=== PATIENT | female | born 1955 ===

== ENCOUNTER 2024-11-23 13:45 | Outpatient (AMB) | payer MEDICARE, MEDICAID, SELFPAY ==
[2024-11-23 13:51] VITALS: BP 130/74; PULSE 99; O2SAT 99; BMI 28.8
--- NOTE | 2024-11-23 13:51 | MHC.OFFVIS ---
Vital Signs 11/23/24 13:51 Height 4 ft 11.5 in Weight 145 lb BMI 28.8 BP 130/74 Blood Pressure Location Lt brachial Position Sitting Pulse 99 Pulse Source Pulse Oximeter Pulse Oximetry (%) 99 Oxygen Delivery Method Room Air Intake Visit Reasons: Osteoporosis, Arthritis Intake Note: Patient presents for follow up on osteoporosis and arthritis. She was last seen in the office 01/26/2024. She did not take her Eliquis or Flecaindide today. Allergies NSAIDS (Non-Steroidal Anti-Inflamma Allergy (Mild, Verified 11/23/24 13:57) Due to flecinde, and Eliquis HPI HPI Osteoporosis, Arthritis: Details: She will be seeing ortho for bilateral knee replacements. Sees [facility]. Uses cane. Sees [facility] for back pain. Uses tylenol arthritis and biofreeze with benefit. Intermittent right CMC pain. She is experiencing chronic neck pain radiating to her shoulders. Worse when driving. She applies heat as needed with benefit. Physical Exam Vital Signs: Last Vital Signs Pulse 99 11/23/24 13:51 BP 130/74 11/23/24 13:51 Pulse Ox 99 11/23/24 13:51 Oxygen Delivery Method Room Air 11/23/24 13:51 BMI result Body Mass Index 28.8 Const Other: General: Comfortable Skin: No lesions seen MSK: Tender spinous process, paraspinal muscles, trapezius and bilateral shoulders. Good range of motion of cervical spine. Right shoulder abduction 160 degrees, left is 150. Good internal rotation of bilateral shoulder. Limited full external rotation of bilateral shoulders Assessment & Plan Assessment & Plan (1) Cervical myofascial strain: Comment: We discussed conservative management Code(s): S16.1XXA - Strain of muscle, fascia and tendon at neck level, initial encounter Category: Medical Qualifiers: Encounter type: initial encounter Qualified Code(s): S16.1XXA - Strain of muscle, fascia and tendon at neck level, initial encounter Plan: PT ordered for myofascial release, TENs unit trial and home strengthening exercise program I have ordered a C-spine x-ray to evaluate the extent of osteoarthritis contributing to her pain [facility]ing [facility] ? Osteoporosis diagnosis Return to clinic in 3 months Orders: Orders PT Evaluation and Treatment Today S16.1XXA - Strain of muscle, fascia and tendon at neck level, initial encounter XR cervical spine 3V Today M54.2 - Cervicalgia Coding Level of Care Code Est Pt Level 3 (87333) Complex EM visit Add On G2211 Diagnoses Cervical myofascial strain, initial encounter S16.1XXA Encounter type: initial encounter
--- OUTSIDE RECORDS SUMMARY | 2024-11-23 16:00 | XMS_ITS | Continuity of Care Document ---
Author Organization [facility] Adult Address [address] [place] [address]- Care Team Providers Care Straight Pin Making Machine Operator Name Role Phone Lily SALDANA, [facility] Primary Care Physician Encounter [facility] Date(s): 10/12/24 - 11/11/[address] [address] Attending Physician: Vero Mcdonald Admitting Physician: Vero Mcdonald Referring Physician: AdmVero weaver Encounter Type: Triage Allergies, Adverse Reactions, Alerts Substance Criticality Severity Reaction Reaction Severity Status erythromycin High criticality Severe GI UPSET Active amoxicillin Rash Active penicillin hives Active morphine C/O - vomiting Activ e oxybutynin Active Premarin Active Bactrim Nausea Active Other Food Allergy lactose intolerant, tomatoes Active gabapentin containing compounds Stomach upset Active traZODone C/O - a headache Act tono Immunizations Given and Recorded Vaccine Date Status Refusal Reason RSV vaccine, preF A-preF B, recombinant 1 09/25/23 Given SARS-CoV-2(COVID-19)mRNA-LNP vac([id number]) 09/15/23 Recorded influenza virus vaccine, inactivated 2 08/25/23 Gi kwame influenza virus vaccine, inactivated 08/26/22 Olaf rded influenza virus vaccine, inactivated 08/10/21 Olaf rded influenza virus vaccine, inactivated 07/06/20 Olaf rded influenza virus vaccine, inactivated 08/27/19 Olaf rded influenza virus vaccine, inactivated 3 09/03/18 Re corded influenza virus vaccine, inactivated 06/19/17 Olaf rded influenza virus vaccine, inactivated 09/10/16 Olaf rded influenza virus vaccine, inactivated 07/03/15 Olaf rded influenza virus vaccine, inactivated 11/20/10 Olaf rded [id number] 12y+ bivalent booster vax 08/23/22 Recorded SARS-CoV-2 (COVID-19) mRNA BNT-162b2 vac 09/16/21 Recorded SARS-CoV-2 (COVID-19) mRNA BNT-162b2 vac 03/15/21 Recorded SARS-CoV-2 (COVID-19) mRNA BNT-162b2 vac 02/22/21 Recorded pneumococcal 23-valent vaccine 10/23/20 Recorded pneumococcal 23-valent vaccine 07/19/10 Recorded pneumococcal 23-valent vaccine 07/16/10 Recorded pneumococcal 13-valent vaccine 10/22/19 Recorded zoster vaccine, inactivated 05/07/19 Recorded zoster vaccine, inactivated 02/19/19 Recorded tetanus/diphtheria/pertussis, acel(Tdap) 03/29/19 Recorded tetanus/diphtheria/pertussis, acel(Tdap) 04/18/11 Recorded tetanus/diphtheria/pertussis, acel(Tdap) 03/18/11 Recorded Influenza Virus Vaccine (oldterm) 4 10/07/07 Given 1Result Comment: [facility] [id number] 2Result Comment: [facility]: [id number] 3Result Comment: [09/06/2018] ISAEENNatalia PRESERVATIVE FREE 4Admin Note: Sanofi pasteur ESHA given today date on ESHA 04/24/2007 Problem List Condition Confirmation Course Effective Dates Status H ealth Status Informant Allergic rhinitis Confirmed Active Afib Confirmed Active Chronic lower back pain Confirmed Active Constipation Confirmed Active Fibromyalgia Confirmed Active Chronic GERD Confirmed Active SHAHLA (generalized anxiety disorder) Confirmed Active History of multiple pulmonary nodules Confirmed Active Hyperlipidemia Confirmed Active Insomnia Confirmed Active Mild depression Confirmed Active SOUMYA on CPAP Confirmed Active Obstructive sleep apnea Confirmed Active Osteoarthritis of both knees Confirmed Active Osteoporosis Confirmed Active Prediabetes Confirmed Active MDD (major depressive disorder), recurrent episode, moderate Confirmed Active Hepatic steatosis Confirmed Active Tubular adenoma of colon 1 Confirmed 08/17/20 Active Venous insufficiency Confirmed Active Vertigo Confirmed Active 1repeat screening colonoscopy in 2022 Social History Social History Type Response Smoking Status Former smoker, quit more than 30 days ago;Never; Type: Cigarettes; Tobacco use times per day: Quit smoking 1985; social smoker, intermittent basis, never more than 1 or 2 cigarettes at a time.; Number of years: 10; entered on: 07/29/23 Sex Sex Representation Female (finding) Radiology * Event Display: IR Special Procedures, Non-BH Authored Date: [id number] Patient Care team information Care Team Personnel Name: Trang Bautista MD Position: [facility] Physician - Primary Care Member Role: PCP Address: [address] [place] [id number] Telecom: Care Team Related Persons Name: RAMIRO JOHNSON Name: RAMIRO JOHNSON Name: AMAN JOHNSON Name: AMAN JOHNSON Name: AMAN JOHNSON Insurance Providers Guarantor name: LAILA JOHNSON Health Plan Information #: 1 Payer: MEDICARE PART B OUTPT Member Number: NA Policy Number: NA Group Number: [facility] Health Plan Information #: 2 Payer: [facility] Member Number: NA Policy Number: NA Group Number: NA
--- OUTSIDE RECORDS SUMMARY | 2024-11-23 16:00 | XMS_ITS | Continuity of Care Document ---
Author Organization [facility] Adult Address [address] [place] [address]- Care Team Providers Care Pediatric Psychologist Name Role Phone Lily SALDANA, [facility] Primary Care Physician Encounter [facility] [place] Date(s): 10/14/24 - 11/13/24 [facility] Adult [address] [place] [address] Encounter Type: Triage Allergies, Adverse Reactions, Alerts [...] A-preF B, recombinant 1 09/25/23 Given SARS-CoV-2(COVID-19)mRNA-LNP vac([id number]) 09/15/23 Recorded influenza virus vaccine, inactivated 2 [...] influenza virus vaccine, inactivated 11/20/10 Olaf rded [id number] 12y+ bivalent booster vax 08/23/22 Recorded SARS-CoV-2 [...] Vaccine (oldterm) 4 10/07/07 Given 1Result Comment: [facility] [id number] 2Result Comment: [facility]: [id number] 3Result Comment: [09/06/2018] DAYANA PRESERVATIVE FREE 4Admin Note: Sanofi pasteur ESHA [...] on: 07/29/23 Sex Sex Representation Female (finding) Patient Care team information Care Team Personnel Name: Trang Bautista MD Position: [facility] Physician - Primary Care Member Role: PCP Address: [address] [place] [address] Telecom: Care Team Related Persons Name: RAMIRO JOHNSON Name: RAMIRO JOHNSON Name: AMAN JOHNSON Name: AMAN JOHNSON Name: AMAN JOHNSON Insurance Providers Guarantor name: LAILA JOHNSON Health Plan Information #: 1 Payer: MEDICARE PART B OUTPT Member Number: NA Policy Number: NA Group Number: NA Health Plan Information #: 2 Payer: [facility] Member Number: NA Policy Number: NA Group Number: NA
--- OUTSIDE RECORDS SUMMARY | 2024-11-23 16:00 | XMS_ITS | Continuity of Care Document ---
Author Organization [facility] Adult Address [address] [place] [address]- Care Team Providers Care General Milling Superintendent Name Role Phone Trang Bautista MD Primary Care Physician ( [phone] Encounter [facility] [place] Date(s): 10/12/24 - 11/11/[address] [address] Attending Physician[facility] Encounter Type: Pre Office Visit Allergies, Adverse Reactions, Alerts Substance Criticality Severity Reaction Reaction Severity Status erythromycin High criticality Severe GI UPSET Active morphine C/O - vomiting Activ e traZODone C/O - a headache Act tono amoxicillin Rash Active penicillin hives Active oxybutynin Active Premarin Active Bactrim Nausea Active Other Food Allergy lactose intolerant, tomatoes Active gabapentin containing compounds Stomach upset Active Immunizations Given and Recorded Vaccine Date Status Refusal Reason RSV vaccine, preF A-preF B, recombinant 1 09/25/23 Given SARS-CoV-2(COVID-19)mRNA-LNP vac([id number]) 09/15/23 Recorded influenza virus vaccine, inactivated 2 [...] influenza virus vaccine, inactivated 11/20/10 Olaf rded [id number] 12y+ bivalent booster vax 08/23/22 Recorded SARS-CoV-2 [...] (oldterm) 4 10/07/07 Given 1Result Comment: [facility] [id number] 2Result Comment: [facility]: [id number] 3Result Comment: [09/06/2018] ISAEENS PRESERVATIVE FREE 4Admin Note: Sanofi pasteur ESHA [...] Team Personnel Name: Trang Bautista MD Position: S Physician - Primary Care Member Role: PCP Address: [address] [place] [address] Telecom: Care Team Related Persons Name: RAMIRO JOHNSON Name: RAMIRO JOHNSON Name: AMAN JOHNSON Name: AMAN JOHNSON Name: AMAN JOHNSON Insurance Providers Guarantor name: LAILA JOHNSON Health Plan Information #: 1 Payer: MEDICARE PART B OUTPT Member Number: [id number] Policy Number: NA Group Number: NA Health Plan Information #: 2 Payer: [facility] Member Number: [id number] Policy Number: NA Group Number: NA
--- OUTSIDE RECORDS SUMMARY | 2024-11-23 16:00 | XMS_ITS | Data Portability ---
Author Organization [place] - [facility], Allergy Address [address] [address] Care Team Providers Care Cathead Operator Name Role Phone FLOYDMARS SIM Primary Care Provider Assessment Encounter Date Assessment Date Assessment LastModified by Organization Details LastModified Time 04/11/2024 04/11/2024 68-year-old female presents for evaluation of right-sided ear pain. Otologic exam is unremarkable. Audiometric testing today shows stable, sensorineural hearing loss bilaterally without conductive component and normal tympanometry. There is tenderness to palpation of the right TMJ. 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 This is likely the cause of her ear pain. We have discussed TMJ precaution. She does however have a history of otitis externa. For this reason I have recommended a short course of otic drops with steroid as she does have pain to manipulation of the pinna. This could be an early otitis externa. Keep follow-up as scheduled in May. greg Not available 04/11/2024 13:13:13 08/24/2024 08/24/2024 68-year-old female presents for cerumen removal. There is no cerumen to removed. TMs generally thickened. As she is having ear fullness I have recommended audiometric testing today but she declined stating she has to make it to another appointment. Will schedule hearing exam in the near future. Not available 08/24/2024 14:23:03 Plan of Treatment Reminders Order Date Submit Date Provider Last Modified By Organization Details Last Modified Time Details Appointments Hearing Test 2024 11:00A M Hearing Test Not available Not available Not available Establish ed 15 2024 11:30A M MARILYN ABDI PA-C Not available Not available Not available Lab None recorded. Referral None recorded. Procedures None recorded. Surgeries None recorded. Imaging None recorded. Medication Orders Ciprodex 0.3 %-0.1 % ear drops,sylvia merrillon 2023 024 [id number], [address] [facility], [place], [address], 04/11/2024 13:14:11 Patient TargetsNo targets recorded. Patient InstructionsNo instructions recorded. Reason for Referral None Reported. Results Created Date Observation Date Name Description Value Unit Range Abnormal Flag Note LastModifiedBy Organization Detail LastModifiedTime 04/11/20 audio gram No observ ation record ed. BARCODE Not Available 2023 16:21:05 06/14/20 24 04/23/2023 imagi ng/di agnos tic resul t No observ ation record ed. [email or web address] Not Available 12:09:05 06/14/20 24 06/27/2020 imagi ng/di agnos tic resul t No observ ation record ed. [email or web address] Not Available 12:09:21 06/14/20 24 07/22/2022 imagi ng/di agnos tic resul t No observ ation record ed. [email or web address] Not Available 12:09:22 06/14/20 24 07/22/2022 imagi ng/di agnos tic resul t No observ ation record ed. [email or web address] Not Available 12:09:23 06/14/20 24 09/30/2023 imagi ng/di agnos tic resul t No observ ation record ed. [email or web address] Not Available 12:09:34 06/14/20 24 06/27/2020 audio gram No observ ation record ed. [email or web address] Not Available 12:10:35 06/14/20 24 09/30/2023 audio gram No observ ation record ed. [email or web address] Not Available 12:11:01 Result Notes None recorded. Problems Name Problem SNOMED Code Status Onset Date Resolution Date Notes Provider Name and Address Organization Details Recorded Time Otorrhea of bilatera l ears [id number] 70190 Active 2021 Otorrhea , bilatera l; Note: Date Diagnose d: 05/29/2022 10:56 AM (H92.13) Not Available [facility] 4 02:48:15 Bleeding from nose 543053843 Active 2022 Epistaxi s; Note: Date Diagnose d: 3 11:58 AM (R04.0) Not Available [facility] 4 02:48:21 Itching of skin 392108418 Active 2019 Pruritus , unspecif ied; Note: Date Diagnose d: 02/02/2020 10:14 AM (L29.9) Not Available [facility] 4 02:48:16 Dysphoni a 49868435 Active 2020 Hoarsene ss; Note: Date Diagnose d: 03/29/2021 11:16 AM (R49.0) Not Available [facility] 4 02:48:21 Xerostom ia 03947638 Active 2021 Dry mouth, unspecif ied; Note: Date Diagnose d: 2 11:57 AM (R68.2) Not Available [facility] 4 02:48:22 Dizzines s and giddines s 535832522 Active 2022 Dizzines s and giddines s; Note: Date Diagnose d: 3 2:35 PM (R42) Not Available [facility] 4 02:48:16 Posterio r rhinorrh ea 64692970 Active 2022 Postnasa l drip; Note: Date Diagnose d: 3 11:58 AM (R09.82) Not Available [facility] 4 02:48:17 Sensorin eural hearing loss of bilatera l ears 164010795 Active 2019 Sensorin eural hearing loss, bilatera l; Note: Date Diagnose d: 06/27/2020 11:47 AM (H90.3) Not Available [facility] 4 02:48:18 Otorrhea of right ear 67402952514 50575 Active 2022 Otorrhea , right ear; Note: Date Diagnose d: 3 4:03 PM (H92.11) Not Available [facility] 4 02:48:19 Pain of left temporom andibula r joint 14516558013 316909 Active 2023 Arthralg ia of left temporom andibula r joint; Note: Date Diagnose d: 10/30/2023 1:26 PM (M26.622 ) Not Available [facility] 4 02:48:18 Chronic mycotic otitis externa 318838025 Active 2021 Chronic mycotic otitis externa; Note: Date Diagnose d: 2 11:18 AM (380.15) Not Available [facility] 4 02:48:14 Impacted cerumen in left ear 50133113059 48300 Active 2022 Impacted cerumen, left ear; Note: Date Diagnose d: 3 1:27 PM (H61.22) Impact ed cerumen, left ear; Note: Date Diagnose d: 08/11/20 22 1:12 PM (H61.22) ; Start Date : 08/11/20 Not Available [facility] 4 02:48:20 Gastroes ophageal reflux disease without esophagi tis 530320100 Active 2021 Gastro-e sophagea l reflux disease without esophagi tis; Note: Date Diagnose d: 2 11:57 AM (K21.9) Not Available [facility] 4 02:48:22 Diffuse otitis externa 88014372 Completed 202005/27/2024 Diffuse otitis externa, right ear; Note: Date Diagnose d: 1 8:32 AM (H60.311 ) Not Available [facility] 4 02:48:14 Candidal otitis externa 04544253 Active 2021 Candidal otitis externa; Location : right No te: Date Diagnose d: 08/11/20 22 1:12 PM (B37.84) Not Available [facility] 4 02:48:23 Bilatera l diffuse otitis externa 88096526711 38201 Completed 202105/27/2024 Diffuse otitis externa, bilatera l; Note: Date Diagnose d: 2 11:19 AM (H60.313 ) Not Available [facility] 4 02:48:19 Referred otalgia 61909778 Active 2020 Otalgia secondar y to TMJ; Note: Date Diagnose d: 1 3:14 PM (388.72) Not Available [facility] 4 02:48:23 Dysphagi a 95029910 Active 2021 Dysphagi a, unspecif ied; Note: Date Diagnose d: 02/27/2022 1:39 PM (R13.10) Not Available [facility] 4 02:48:18 Otalgia of right ear 6470076387 Active 2022 Otalgia, right ear; Note: Date Diagnose d: 3 11:58 AM (H92.01) Not Available [facility] 4 02:48:17 Eustachi an tube disorder 07594981 Active 2019 Other specifie d disorder s of Eustachi an tube, unspecif ied ear; Note: Date Diagnose d: 02/02/2020 10:14 AM (H69.80) Not Available [facility] 4 02:48:19 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 Other specifie d superfic ial mycoses; Note: Date Diagnose d: 2 11:19 AM (B36.8) Not Available [facility] 4 02:48:14 Otalgia of left ear 8821023998 Active 2019 Otalgia, left ear; Note: Date Diagnose d: 02/02/2020 10:13 AM (H92.02) Not Available [facility] 4 02:48:20 Impacted cerumen of bilatera l ears 53761082291 14363 Active 2020 Impacted cerumen, bilatera l; Note: Date Diagnose d: 03/29/2021 11:16 AM (H61.23) Not Available [facility] 4 02:48:20 Mixed conducti ve and sensorin eural hearing loss of right ear 85025611542 105 Active 2023 JENISE KNIGHT, AUD [address] [facility],[place] [address], [place], [place], [address] , [facility] 4 12:20:06 Sensorin eural hearing loss 70723078 Active 2023 JENISE KNIGHT, AUD [address] [facility], [place], [place], [address] , [facility] 4 12:20:21 Arthralg ia of temporom andibula r joint 43889595 Active 2023 MARILYN ABDI PA-C [address] [facility], [place], [place], [address] , [facility] - [facility] 4 13:13:26 Acute otitis externa 18396177 Active 2023 MARILYN ABDI PA-C [address] [facility], [place], [place], [address] , [facility] - [facility] 4 13:13:31 Acute serous otitis media of bilatera l ears 50673419691 67016 Active 2023 Acute serous otitis media, bilatera l; Note: Date Diagnose d: 4 1:10 PM (H65.03) Not Available [facility] 4 02:48:15 Cough 59515702 Active 2023 Cough, unspecif ied; Note: Changed from R05 to R05.9 (12/18/19 24 5:00 PM) , Date Diagnose d: 4 1:10 PM (R05) Not Available [facility] 4 02:48:16 Acute maxillar y sinusiti s 63863135 Active 2023 Acute maxillar y sinusiti s, unspecif ied; Note: Date Diagnose d: 4 1:10 PM (J01.00) Not Available [facility] 4 02:48:21 Allergic rhinitis caused by pollen 78367245 Active 2023 Allergic rhinitis due to pollen; Note: Date Diagnose d: 4 3:06 PM (J30.1) Not Available [facility] 4 02:48:22 Bilatera l disorder of Eustachi an tubes 77595105891 46998 Active 2023 MARILYN ABDI PA-C [address] [facility] [address], [place], [address] , [facility] 4 14:24:03 Nasal congesti on 64806882 Active 2023 MARILYN ABDI PA-C [address] [facility],[place] [address], [place], [address] , [facility] 4 14:24:07 Problem Notes None recorded. Procedures Surgical History Date Name Laterality Status Provider Name and Address Organization Details Recorded Time Cerumen removal without microscope bilat completed MARILYN ABDI PA-C [address] [facility],[place] [address], [place], [address], [facility] 08/24/2024 14:22:06 Comp Audio with Tymps (43503 & 29571) completed SANDIP PROCTOR [address] [facility],[place] [address], [place], [address], [facility] 04/11/2024 12:19:43 Imaging Results Imaging Date Name Status LastModified by Organiz ation Details LastModified Time 04/11/2024 audiogram completed BARCODE Information no t available 04/11/2024 16:21:05 04/23/2023 imaging/diagno stic result completed Information not available 06/14/2024 12:09:05 06/27/2020 imaging/diagno stic result completed Information not available 06/14/2024 12:09:21 07/22/2022 imaging/diagno stic result completed Information not available 06/14/2024 12:09:22 07/22/2022 imaging/diagno stic result completed Information not available 06/14/2024 12:09:23 09/30/2023 imaging/diagno stic result completed Information not available 06/14/2024 12:09:34 06/27/2020 audiogram completed Information not available 06/14/2024 12:10:35 09/30/2023 audiogram completed Information not available 06/14/2024 12:11:01 Procedure Notes None recorded. Medical Equipment None Reported. Allergies Allergen ID Allergen Name Allergen Category Reaction Reaction Severity Criticality Documentation Date Start Date Code Code System Note Provider Name and Address Organization Details Recorded Time 75947 meloxicam medicatio n other Not available Not available 03/08/2024 44144 RxNorm React ion: unkno wn, unspe cifie d;; Not Available [facility] 4 00:59:14 96498 estradiol medicatio n other Not available Not available 03/08/2024 4083 RxNorm React ion: unkno wn, unspe cifie d;; Not Available [facility] 4 00:59:15 30587 oxycodone medicatio n other Not available Not available 03/08/2024 7804 RxNorm React ion: unkno wn, unspe cifie d;; Not Available [facility] 4 00:59:16 73392 doxycycli ne Not available other Not available Not available 03/08/2024 3640 RxNorm React ion: unkno wn, unspe cifie d;; Not Available [facility] 4 00:59:17 65965 gabapenti n medicatio n other Not available Not available 03/08/2024 67410 RxNorm React ion: unkno wn, unspe cifie d;; Not Available [facility] 4 00:59:19 29398 Bactrim medicatio n other Not available Not available 03/08/2024 12870 9 RxNorm React ion: unkno wn, unspe cifie d;; Not Available [facility] 4 00:59:20 20455 amoxicill in medicatio n hives Not available Not available 03/08/2024 723 RxNorm React ion: skin rashe s, hives ;; Not Available [facility] 4 00:59:22 87889 azithromy char medicatio n other Not available Not available 03/08/2024 56310 RxNorm React ion: unkno wn, unspe cifie d;; Not Available [facility] 4 00:59:24 69819 Fosamax medicatio n other Not available Not available 03/08/2024 50367 5 RxNorm React ion: unkno wn, unspe cifie d;; Not Available [facility] 4 00:59:27 96132 oxybutyni n chloride Not available other Not available Not available 03/08/2024 72375 RxNorm React ion: unkno wn, unspe cifie d;; Not Available [facility] 4 00:59:30 71745 trazodone medicatio n other Not available Not available 03/08/2024 57038 RxNorm React ion: unkno wn, unspe cifie d;; Not Available [facility] 4 00:59:33 97579 Premarin medicatio n other Not available Not available 03/08/202476851 6 RxNorm React ion: unkno wn, unspe cifie d;; Not Available [facility] 4 00:59:36 82600 penicilli n V potassium medicatio n other Not available Not available 03/08/202452759 5 RxNorm React ion: unkno wn, unspe cifie d;; Not Available [facility] 4 00:59:41 16142 morphine medicatio n other Not available Not available 03/08/2024 7052 RxNorm React ion: unkno wn, unspe cifie d;; Not Available [facility] 4 00:59:45 66707 Actos medicatio n other Not available Not available 03/08/2024 26721 2 RxNorm React ion: unkno wn, unspe cifie d;; Karyn sears [place] - [facility] 4 11:48:39 17904 erythromy char ethylsucc inate medicatio n other Not available Not available 03/08/2024 4056 RxNorm React ion: unkno wn, unspe cifie d;; Not Available [facility] 4 00:59:54 Medications Name Sig Start Date Stop Date Status Note LastModified by Organization Details LastModified Time doxycycli ne hyclate 100 mg capsule TAKE ONE CAPSULE BY MOUTH TWICE A DAY FOR 10 DAYS 04/11 completed Not Available Not Available Not Available polyethyl rupesh glycol 3350 17 gram oral powder packet 11/28 completed Medicati on ID: [id number] B rand Name: polyethy carlton glycol 3350 Sen d Method: E-Prescr ibed Sub s Allowed: subs OK Medic ationGen ericName : polyethy carlton glycol 3350 Not Available Not Available Not Available cetirizin e 10 mg tablet TAKE ONE TO TWO TABLETS BY MOUTH AT BEDTIME active Not Available Not Available No t Available metoprolo l succinate ER 50 mg tablet,ex tended release 24 hr active Medicati on ID: [id number] B rand Name: metoprol ol succinat e Send Method: E-Prescr ibed Sub s Allowed: subs OK Medic ationGen ericName : metoprol ol succinat e Not Available Not Available Not Available clotrimaz ole-betam ethasone 1 %-0.05 % lotion Apply a small amount three times a day as directed 04/11 completed Medicati on ID: [id number] D uration Value: 14 Brand Name: clotrima zole-bet amethaso ne Send Method: E-Prescr ibed Sub s Allowed: subs OK Speci al Instruct ion: Apply with finger to ear canal skin. Me dication GenericN pushpa: clotrima zole-bet amethaso ne Medic ation ID: [id number] D uration Value: 14 Brand Name: clotrima zole-bet amethaso ne Send Method: E-Prescr ibed Sub s Allowed: subs OK Speci al Instruct ion: Apply with finger to ear canal skin. Me dication GenericN pushpa: clotrima vaughne-bet amannao ne Not Available Not Available Not Available ondansetr on HCl 4 mg tablet TAKE 1 TABLET EVERY 8 HOURS NEEDED FOR NAUSEA/V OMITING active Not Available Not Available No t Available ketorolac 0.5 % eye drops 08/11 completed Medicati on ID: [id number] B rand Name: ketorola c Send Method: E-Prescr ibed Sub s Allowed: subs OK Medic ationGen ericName : ketorola c Not Available Not Available Not Available calcium 600 mg (as calcium carbonate 1,500 mg) tablet TAKE 1 TABLET BY MOUTH TWICE A DAY WITH MEALS active Not Available Not Available No t Available famotidin e 20 mg tablet TAKE 1 TABLET BY MOUTH ONCE TO TWICE DAILY NEEDED FOR HEARTBUR N. AVOID EATING OR DRINKING FOR 10 MINUTES AFTER EACH DOSE. active Not Available Not Available No t Available prednisol one acetate 1 % eye drops,sylvia pension 08/11 completed Medicati on ID: [id number] B rand Name: predniso lone acetate Send Method: E-Prescr ibed Sub s Allowed: subs OK Medic ationGen ericName : predniso lone acetate Not Available Not Available Not Available doxycycli ne monohydra te 100 mg capsule TAKE ONE CAPSULE BY MOUTH TWICE A DAY FOR 7 DAYS 04/11 completed Not Available Not Available Not Available pantopraz ole 40 mg tablet,de layed release 11/28 completed Medicati on ID: [id number] B rand Name: pantopra zole Sen d Method: E-Prescr ibed Sub s Allowed: subs OK Medic ationGen ericName : pantopra zole Not Available Not Available Not Available Cipro 500 mg tablet 1 tablet by mouth 04/11 completed Medicati on ID: [id number] D uration Value: 7 Prescri bed By Name: TAMAR Knight nd Name: Cipro Se nd Method: E-Prescr ibed Sub s Allowed: subs OK Medic ationGen ericName : Cipro Me dication ID: [id number] D uration Value: 7 Prescri bed By Name: TAMAR Knight nd Name: Cipro Se nd Method: E-Prescr ibed Sub s Allowed: subs OK Medic ationGen ericName : Cipro Not Available Not Available Not Available clotrimaz ole-betam ethasone 1 %-0.05 % topical cream Apply 1 a small amount twice a day 04/11 completed Medicati on ID: [id number] D uration Value: 14 Brand Name: clotrima zole-bet amethaso ne Send Method: E-Prescr ibed Sub s Allowed: subs OK Speci al Instruct ion: Apply with fingerti p to external ear BID x 2 weeks Me dication GenericN pushpa: clotrima zole-bet amethaso ne Medic ation ID: [id number] D uration Value: 14 Brand Name: clotrima zole-bet amethaso ne Send Method: E-Prescr ibed Sub s Allowed: subs OK Speci al Instruct ion: Apply with fingerti p to external ear BID x 2 weeks Me dication GenericN pushpa: clotrima zole-bet amethaso ne Not Available Not Available Not Available olopatadi ne 0.1 % eye drops INSTILL 1 DROP INTO BOTH EYES TWO TIMES A DAY active Not Available Not Available No t Available lansopraz ole 30 mg capsule,d elayed release TAKE ONE CAPSULE BY MOUTH EVERY DAY active Not Available Not Available No t Available flecainid e 50 mg tablet TAKE ONE TABLET BY MOUTH TWICE A DAY active Not Available Not Available No t Available brimonidi ne 0.2 % eye drops 08/11 completed Medicati on ID: [id number] B rand Name: brimonid ine Send Method: E-Prescr ibed Sub s Allowed: subs OK Medic ationGen ericName : brimonid ine Not Available Not Available Not Available clotrimaz ole 1 % topical solution Apply 04/11 completed Medicati on ID: [id number] D uration Value: 14 Brand Name: clotrima zole Sen d Method: E-Prescr ibed Sub s Allowed: subs OK Speci al Instruct ion: 4 drops to the right ear BID x 2 weeks Me dication GenericN pushpa: clotrima zole Med ication ID: [id number] D uration Value: 14 Brand Name: clotrima zole Sen d Method: E-Prescr ibed Sub s Allowed: subs OK Speci al Instruct ion: 4 drops to the right ear BID x 2 weeks Me dication GenericN pushpa: clotrima zole Not Available Not Available Not Available betametha sone dipropion ate 0.05 % topical cream 1 a small amount 11/28 completed Medicati on ID: [id number] D uration Value: 14 Prescri bed By Name: TAMAR Knight nd Name: betameth asone dipropio julio Sen d Method: E-Prescr ibed Sub s Allowed: subs OK Speci al Instruct ion: Apply to external ear bid X 14 days Med icationG enericNa me: betameth asone dipropio julio Not Available Not Available Not Available omeprazol e 20 mg capsule,d elayed release 11/20 completed Medicati on ID: [id number] D uration Value: 30 Brand Name: omeprazo le Send Method: E-Prescr ibed Sub s Allowed: subs OK Speci al Instruct ion: TK 1 C PO D PRF HEARTBUR N Medica tionGene ricName: omeprazo le Not Available Not Available Not Available hydroxyzi ne HCl 25 mg tablet TAKE ONE TABLET BY MOUTH THREE TIMES A DAY NEEDED FOR ANXIETY active Not Available Not Available No t Available hydrochlo rothiazid e 25 mg tablet 11/20 completed Medicati on ID: [id number] D uration Value: 90 Brand Name: hydrochl orothiaz irma Send Method: E-Prescr ibed Sub s Allowed: subs OK Speci al Instruct ion: TK 1 T PO D Medica tionGene ricName: hydrochl orothiaz irma Not Available Not Available Not Available metoprolo l succinate ER 25 mg tablet,ex tended release 24 hr TAKE ONE TABLET BY MOUTH EVERY DAY active Not Available Not Available No t Available azelastin e 137 mcg (0.1 %) nasal spray USE 2 SPRAYS NASALLY TWO TIMES A DAY DIRECTED active Not Available Not Available No t Available ferrous sulfate 325 mg (65 mg iron) tablet,de layed release TAKE ONE TABLET BY MOUTH EVERY OTHER DAY WITH VITAMIN CAPSULE TO HELP ABSORPTI ON active Not Available Not Available No t Available celecoxib 100 mg capsule 08/11 completed Medicati on ID: [id number] B rand Name: donald calloway Send Method: E-Prescr ibed Sub s Allowed: subs OK Medic ationGen ericName : celecoxi b Not Available Not Available Not Available ondansetr on 4 mg disintegr ating tablet DISSOLVE ONE TABLET BY MOUTH EVERY 8 HOURS active Not Available Not Available No t Available fluticaso ne propionat e 50 mcg/actua tion nasal spray,sylvia pension SPRAY TWICE IN EACH NOSTRIL DAILY AT BEDTIME active Not Available Not Available No t Available clotrimaz ole 1 % topical cream 1 a small amount to skin 11/28 completed Medicati on ID: [id number] D uration Value: 14 Prescri bed By Name: TAMAR Knight nd Name: clotrima katlyn Reagan d Method: E-Prescr ibed Sub s Allowed: subs OK Speci al Instruct ion: to external ears Med icationG enericNa me: clotrima zole Not Available Not Available Not Available loratadin e 10 mg tablet TAKE ONE TO TWO TABLETS BY MOUTH EVERY MORNING active Not Available Not Available No t Available naproxen 500 mg tablet 11/20 completed Medicati on ID: [id number] D uration Value: 90 Brand Name: naproxen Send Method: E-Prescr ibed Sub s Allowed: subs OK Speci al Instruct ion: TK 1 T PO BID [facility] naproxen Not Available Not Available Not Available TobraDex 0.3 %-0.1 % eye drops,sylvia pension 08/09 completed Medicati on ID: [id number] D uration Value: 14 Prescri bed By Name: Filomena galvez MD Brand Name: TobraDex Send Method: E-Prescr ibed Sub s Allowed: subs OK Speci al Instruct ion: Instill 4 drops in the right ear BID for 14 days Med icationG enericNa me: TobraDex Not Available Not Available Not Available Mapap Arthritis Pain 650 mg tablet,ex tended release 11/28 completed Medicati on ID: [id number] D uration Value: 30 Brand Name: Eliz Guzmán s Pain Sen d Method: E-Prescr ibed Sub s Allowed: subs OK Speci al Instruct ion: TK 1 T PO Q 8 H PRN P Medica tionGene ricName: Ernestoap Arthriti s Pain Not Available Not Available Not Available cyclobenz aprine 5 mg tablet TAKE ONE TABLET BY MOUTH DAILY AT BEDTIME NEEDED FOR PAIN active Not Available Not Available No t Available Restasis 0.05 % eye drops in a dropperet te INSTILL 1 DROP IN EACH EYE TWICE DAILY active Not Available Not Available No t Available ciproflox acin 0.3 %-dexamet hasone 0.1 % ear drops,sylvia pension APPLY 4 DROPS INTO THE RIGHT EAR TWICE DAILY FOR 10 DAYS active Not Available Not Available No t Available DermOtic Oil 0.01 % ear drops 2 drop 04/11 completed Medicati on ID: [id number] D uration Value: 30 Brand Name: DermOtic Oil Send Method: E-Prescr ibed Sub s Allowed: subs [place] Speci al Instruct ion: as needed for itching Medicati onGeneri cName: DermOtic Oil Medi cation ID: [id number] D uration Value: 30 Brand Name: DermOtic Oil Send Method: E-Prescr ibed Sub s Allowed: subs [place] Speci al Instruct ion: as needed for itching Medicati onGeneri cName: DermOtic Oil Not Available Not Available Not Available diclofena c 1 % topical gel APPLY 2 GRAMS TO AFFETED AREA EVERY 4-6 HOURS active Not Available Not Available No t Available cholecalc iferol (vitamin D3) 50 mcg (2,000 unit) capsule TAKE ONE CAPSULE BY MOUTH EVERY DAY active Not Available Not Available No t Available Oyster Shell Calcium-V itamin D3 500 mg-10 mcg (400 unit) tablet TAKE ONE TABLET BY MOUTH TWICE A DAY active Not Available Not Available No t Available ClearLax 17 gram/dose oral powder DISSOLVE ONE CAPFUL 17G) IN WATER OR JUICE AND DRINK BY MOUTH ONCE A DAY, MAY INCREASE TO 2 -3 TIMES DAILY NEEDED FOR CONSTIPA TION active Not Available Not Available No t Available Lumigan 0.01 % eye drops PLACE 2 DROPS IN EACH EYE AT BEDTIME active Not Available Not Available No t Available Eliquis 5 mg tablet TAKE ONE TABLET BY MOUTH TWICE A DAY active Not Available Not Available No t Available Adults 50 Plus 0.4 mg-300 mcg-250 mcg tablet 08/11 completed Medicati on ID: [id number] D uration Value: 90 Brand Name: Adults 50 Plus Sen d Method: E-Prescr ibed Sub s Allowed: subs [place] Speci al Instruct ion: TK 1 T PO D Medica tionGene ricName: Adults 50 Plus Not Available Not Available Not Available Daily-Vit e (with folic acid) 400 mcg tablet 08/11 completed Medicati on ID: [id number] B rand Name: Daily-Vi te (with folic acid) Se nd Method: E-Prescr ibed Sub s Allowed: subs [place] Medic ationGen ericName : Daily-Vi te (with folic acid) Not Available Not Available Not Available Astepro Allergy 205.5 mcg (0.15 %) nasal spray [place] 1 spray into both nostrils twice a day 01/10 completed Medicati on ID: [id number] P rescribe d By Name: Geoff Jones nd Name: Astepro Allergy Send Method: E-Prescr ibed Sub s Allowed: subs [place] Medic ationGen ericName : Astepro Allergy Not Available Not Available Not Available Vitals Date Recorded Body height Body mass index (BMI) Body weight Provider Name and Address Organization Details Last Updated DateTime 04/11/2024 151.13 cm 27.8 kg/m2 67173.93 g Karyn Antonio [place] [facility] 04/11/2024 11:48:18 Date Recorded Body height Body mass index (BMI) Body weight Provider Name and Address Organization Details Last Updated DateTime 08/24/2024 151.13 cm 27.8 kg/m2 24108.93 g Whitney Wood [facility] 08/24/2024 13:39:27 Social History None recorded. Functional Status None recorded. Mental Status None recorded. Family History Nothing Reported. Medical History No medical history recorded. Gynecological HistoryNo gynecological history recorded. Obstetrics History GPAL:G 0 P 0 0 0 0 Past Encounters Encounter ID Performer Location Encounter Start Date Encounter Closed Date Diagnosis/Indication Diagnosis SNOMED-CT Code Diagnosis ICD10 Code Diagnosis Note [id number] AMBROCIO SANDOVAL MD [facility] [address] [place] [address] 04/11/2024 11:30:47 04/11/2024 12:33:15 Otalgia of right ear 9867258703 H92.01 Arthralgia of temporomandibular joint 05565815 M26.629 Acute otitis externa 302 62353 H60.509 [id number] SANDIP PROCTOR [facility] [address] [place] [address] 04/11/2024 12:19:13 04/12/2024 12:46:23 Mixed conductive and sensorineural hearing loss of right ear 5576695044 9105 H90.A31 Sensorineu ral hearing loss 11105948 H90.A22 Audiologic al evaluation results: Right ear: {{Normal M ild* Moder ate Modera tely-sever e Severe P rofound}} {{hearing sloping to a mild slopi ng to a moderate s loping to moderately severe slo ping to severe* sl oping to profound f lat high frequency low frequency mid frequency cookie bite lyn curve}} {{with sen sorineural hearing loss with condu ctive hearing loss with mixed hearing loss with*}} {{excellen t* good fa ir poor no t measurable }} word recognitio n. Left ear: {{Normal M ild* Moder ate Modera tely-sever e Severe P rofound}} {{hearing sloping to a mild slopi ng to a moderate s loping to moderately severe slo ping to severe* sl oping to profound f lat high frequency low frequency mid frequency cookie bite lyn curve}} {{with sen sorineural hearing loss with* cond uctive hearing loss with mixed hearing loss with}} {{excellen t* good fa ir poor no t measurable }} word recognitio n. Tympanomet ry: Right Ear:{{Type A Type As* Type Ad Type C Type C, shallow & rounded Ty pe B Type B with large volume Cou ld not maintain a hermetic seal}} Left Ear:{{Type A Type As* Type Ad Type C Type C, shallow & rounded Ty pe B Type B with large volume Cou ld not maintain a hermetic seal}} [id number] DMITRY WILBURN MD [facility] [address] [address] 08/24/2024 13:15:02 08/24/2024 14:13:43 Bilateral disorder of Eustachian tubes 4501881201 354304 H69.93 Nasal congestion 5540876 0 R09.81 Health Concerns Section Related Observation LastModified by Organization Detai ls LastModified Time None Recorded Concern Status LastModified by Organization Details LastModified Time None Recorded Advance Directives Directive None Recorded Payers Encounter Date Sequence Insurance Name Policy Number Policy Ahuja Covered Member ID Ahuja Member ID Guarantor Name 04/11/2024 1 [place] [facility] Sarah Viridiana [id number] Sarah E Viridiana 04/11/2024 2 [place] [facility] Sarah Viridiana [id number] Sarah E Viridiana 04/11/2024 1 [place] [facility] Sarah Viridiana [id number] Sarah E Viridiana 04/11/2024 2 [place] [facility] Sarah Viridiana [id number] Sarah E Viridiana 08/24/2024 1 [place] [facility] Sarah Viridiana [id number] Sarah E Viridiana 08/24/2024 2 [place] [facility] Sarah Viridiana [id number] Sarah E Viridiana Notes Date Note Type Note Provider Name and Address Organization Details Recorded Time 04/11/2024 text/html 68-year-old gamal hernandez with history of sensorineural hearing loss presents for evaluation of right-sided ear pain. Patient states that on Thursday she woke with stabbing right-sided ear pain and a sensation of muffled hearing. She has had no drainage from the ear. The other side is unaffected. AMBROCIO ARITA MD [address] [place] [address], [phone], [facility] - [facility] 04/11/2024 16:59:59 08/24/2024 text/html 68-year-old gamal hernandez presents for cerumen. Has been having more postnasal drip and nasal congestion which she feels is affecting her ears causing ear fullness. Cannot use Flonase due to glaucoma. DMITRY WILBURN MD [address] [place] [address], [phone], [facility] - [facility] 08/25/2024 08:54:43 OBGyn Episode No OBEpisode recorded.
--- OUTSIDE RECORDS SUMMARY | 2024-11-23 16:00 | XMS_ITS | Continuity of Care Document ---
Author Organization [facility] Adult Address [address] [place] [address]- Care Team Providers Care Senior Service Aide Name Role Phone Lily SALDANA, [facility] Primary Care Physician [place] [facility] - 11/13/[address] [facility] Adult [address] [place] [address] Encounter Type: Triage Allergies, Adverse [...] A-preF B, recombinant 1 09/25/23 Given SARS-CoV-2(COVID-19)mRNA-LNP vac([id number]) 09/15/23 Recorded influenza virus vaccine, inactivated 2 [...] influenza virus vaccine, inactivated 11/20/10 Olaf rded [id number] 12y+ bivalent booster vax 08/23/22 Recorded SARS-CoV-2 [...] Given 1Result Comment: [facility] [id number] 2Result Comment: [facility]: [id number] 3Result Comment: [09/06/2018] [facility] PRESERVATIVE FREE 4Admin [...] Team Personnel Name: Trang Bautista MD Position: [facility] Physician - Primary Care Member Role: PCP Address: [address] [place] [address] Telecom: Care Team Related Persons Name: RAMIRO JOHNSON Name: RAMIRO JOHNSON Name: AMAN JOHNSON Name: AMAN JOHNSON Name: AMAN JOHNSON Insurance Providers Guarantor name: LAILA JOHNSON Health Plan Information #: 1 Payer: MEDICARE PART B OUTPT Member Number: NA Policy Number: NA Group Number: NA Health Plan Information #: 2 Payer: [facility] Member Number: NA Policy Number: NA Group Number: NA
--- OUTSIDE RECORDS SUMMARY | 2024-11-23 16:00 | XMS_ITS | Continuity of Care Document ---
Author Organization [facility] Adult Address [address] [place] [address] Care Team Providers Care Kitchen And Bath Designer Name Role Phone Lily SALDANA, [facility] Primary Care Physician Encounter [facility] [place] Date(s): 10/14/24 - 11/13/24 [facility] Adult [address] [place] [address] Encounter Type: Triage Allergies, Adverse Reactions, Alerts [...] A-preF B, recombinant 1 09/25/23 Given SARS-CoV-2(COVID-19)mRNA-LNP vac([id number]) 09/15/23 Recorded influenza virus vaccine, inactivated 2 [...] influenza virus vaccine, inactivated 11/20/10 Olaf rded [id number] 12y+ bivalent booster vax 08/23/22 Recorded SARS-CoV-2 [...] Vaccine (oldterm) 4 10/07/07 Given 1Result Comment: [facility] [id number] 2Result Comment: [facility]: [id number] 3Result Comment: [09/06/2018] DAYANA PRESERVATIVE FREE 4Admin [...] Team Personnel Name: Trang Bautista MD Position: [facility] Physician - Primary Care Member Role: PCP Address: [address] [place] [address] Telecom: Care Team Related Persons Name: RAMIRO JOHNSON Name: RAMIRO JOHNSON Name: AMAN JOHNSON Name: AMAN JOHNSON Name: AMAN JOHNSON Insurance Providers Guarantor name: LAILA JOHNSON Health Plan Information #: 1 Payer: MEDICARE PART B OUTPT Member Number: NA Policy Number: NA Group Number: NA Health Plan Information #: 2 Payer: [facility] Member Number: NA Policy Number: NA Group Number: NA
--- OUTSIDE RECORDS SUMMARY | 2024-11-23 16:00 | XMS_ITS | Continuity of Care Document ---
Author Organization [facility] Address [address] [place] [address] [facility] Name Relationship Address Phone AMAN JOHNSON child Unknown Unavailable RAMIRO JOHNSON spouse Unknown Unavailable AMAN JOHNSON Personal Relationship Unknown Arabella vailable ELIZABETH, RAMIRO spouse Unknown Unavailable ELIZABETH, RAMIRO spouse Unknown Unavailable ELIZABETH, AMAN child Unknown Unavailable Care Team Providers Care Ice Cream Scooper Name Role Phone Lily SALDANA, Trang Primary Care Physician Encounter [facility] Date(s): 10/14/24 - 11/13/24 [facility] [address] [place] [address] Encounter Type: Triage Allergies, Adverse Reactions, Alerts [...] A-preF B, recombinant 1 09/25/23 Given SARS-CoV-2(COVID-19)mRNA-LNP vac([id number]) 09/15/23 Recorded influenza virus vaccine, inactivated 2 08/25/23 Gi kwame influenza virus vaccine, inactivated 08/26/22 Olaf rded influenza virus vaccine, inactivated 08/10/21 Olaf rded influenza virus vaccine, inactivated 07/06/20 Olaf rded influenza virus vaccine, inactivated 08/27/19 Olaf rded influenza virus vaccine, inactivated 3 09/03/18 Re corded influenza virus vaccine, inactivated 06/19/17 Olaf rded influenza virus vaccine, inactivated 09/10/16 Olfa rded influenza virus vaccine, inactivated 07/03/15 Olaf rded influenza virus vaccine, inactivated 11/20/10 Olaf rded [id number] 12y+ bivalent booster vax 08/23/22 Recorded SARS-CoV-2 [...] Vaccine (oldterm) 4 10/07/07 Given 1Result Comment: [facility] [id number] 2Result Comment: [facility]: [phone] 3Result Comment: [09/06/2018] [facility] PRESERVATIVE FREE 4Admin Note: [employer] pasteur ESHA [...] - Primary Care Member Role: PCP Address: [address] [place] [address] [address] [place] [address]- Telecom: Care Team Related Persons Name: RAMIRO JOHNSON Name: RAMIRO JOHNSON Name: AMAN JOHNSON Name: AMAN JOHNSON Name: AMAN JOHNSON Insurance Providers Guarantor name: LAIAL ELIZABETH Health Plan Information #: 1 Payer: MEDICARE PART B OUTPT Member Number: NA Policy Number: NA Group Number: NA Health Plan Information #: 2 Payer: [facility] Member Number: NA Policy Number: NA Group Number: NA
--- OUTSIDE RECORDS SUMMARY | 2024-11-23 16:00 | XMS_ITS | Clinical Summary ---
Author Organization [facility] it[facility] Address [address] [place] [address] Care Team Providers Care Coat Fitter Name Role Phone Mandie Mckenzie MD Primary Care Provider [phone] Surgical History Surgery Date Site/Laterality Comments BREAST BIOPSY Bilateral PROCEDURE: BX BREAST; PERC NEEDLE CORE W/IMAG GUID; COMMENT: 2 on left breast 1 left side neg BREAST SURGERY PROCEDURE: MO UNLISTED PROCEDURE BREAST; COMMENT: bilateral breast reduction x 2 1984 &2006 OTHER SURGICAL HISTORY 07/18/2015 Right PROCEDURE: MO EXCISION NAIL MATRIX PERMANENT REMOVAL; COMMENT: partial matrixectomy by Dr. Brandt OTHER SURGICAL HISTORY 07/24/2017 Left PROCEDURE: MO EXCISION NAIL MATRIX PERMANENT REMOVAL; COMMENT: partial matrixectomy medial and lateral borders by Dr. Galo OTHER SURGICAL HISTORY 07/24/2017 Left PROCEDURE: MO EXCISION NAIL MATRIX PERMANENT REMOVAL; COMMENT: partial matrixectomy's medial borders third and fourth toes by Dr. Galo COLONOSCOPY 2008 PROCEDURE: HISTORICAL COLONOSCOPY; COMMENT: repeat in 10 years CATARACT EXTRACTION 10/2021 Right PROCEDURE: HISTORICAL CATARACT REMOVAL Medical History Medical History Date Comments GERD (gastroesophageal reflux disease) DX:GERD (gastroesophageal reflux disease) Hiatal hernia DX:Hiatal hernia Family History Medical History Relation Name Comments Prostate cancer Brother Breast cancer Sister twin sister 49 Cervical cancer Sister Colon cancer Neg Hx Relation Name Status Comments Brother Sister Social History Tobacco Use Types Packs/Day Years Used Date Smoking Tobacco: Former Cigarettes Q uit: 10/26/1989 Smokeless Tobacco: Never Alcohol Use Standard Drinks/Week Comments No 0 (1 standard drink = 0.6 oz pur e alcohol) Sex and Gender Information Value Date Recorded Sex Assigned at Not on file Gender Identity Not on file Sexual Orientation Not on file Obstetrics History Last Filed Vital Signs Vital Sign Reading Time Taken Comments Blood Pressure 112/72 02/17/2022 3:48 PM EDT Pulse 68 02/17/2022 3:48 PM EDT Temperature - - Respiratory Rate - - Oxygen Saturation - - Inhaled Oxygen Concentration - - Weight 74.4 kg (164 lb 1.6 oz) 02/17/2022 3:48 P M EDT Height 149.9 cm (4' 11 ) 02/17/2022 3:48 PM EDT Body Mass Index 33.14 02/17/2022 3:48 PM EDT Plan of Treatment Health Maintenance Due Date Last Done Comments Breast Cancer Screening 03/01/2021 03/01/2019 Cholesterol Screening (Lipid Panel) 09/23/2022 Colorectal Cancer Screening: Colonoscopy 09/23/2022 Depression Screening 09/23/2022 Falls Risk Assessment 09/23/2022 Hepatitis C Screening 09/23/2022 Social Influencers of Health Screening 09/23/2022 Hypertension/CHF/CAD Annual BMP Blood Test 10/05/2022 COVID-19 Vaccine ( season) 2024 09/16/2021, 03/15/2021, 02/22/2021 Influenza Vaccine (#1) 2024 2, 08/10/2021, 07/06/2020, Additional history exists DTaP,Tdap,and Td Vaccines (2 - Td or Tdap) 03/29/2029 03/29/2019 Osteoporosis Screening (Bone Density Screening) 06/20/2029 06/20/2019 RSV Immunization Patients 60+ Years Old (1 - 1-dose 75+ series) 2029 Zoster Vaccines Completed 05/07/2019, 02/19/2019 Pneumococcal Vaccine: 65+ Years Completed 10/23/2020, 10/22/2019 HIB Vaccines Aged Out No longer eligi ble based on patient's age to complete this topic HPV Vaccines Aged Out No longer eligi ble based on patient's age to complete this topic Hepatitis A Vaccines Aged Out No long er eligible based on patient's age to complete this topic Hepatitis B Vaccines Aged Out No long er eligible based on patient's age to complete this topic IPV Vaccines Aged Out No longer eligi ble based on patient's age to complete this topic MMR Vaccines Aged Out No longer eligi ble based on patient's age to complete this topic Meningococcal ACWY Vaccine Aged Out N o longer eligible based on patient's age to complete this topic RSV Immunization Patients Under 20 months Aged Out No longer eligible based on patient's age to complete this topic Varicella Vaccines Aged Out No longer eligible based on patient's age to complete this topic Procedures Procedure Name Priority Date/Time Associated Diagnosis Comments DXA BONE DENSITY STUDY 1+ SITS AXIAL SKEL Routine 06/20/2019 1:08 PM EDT Personal history of other diseases of the musculoskeletal system and connective tissue SCR MAMMO BI INCL CAD Routine 03/01/2019 1:55 PM EDT Encounter for screening mammogram for malignant neoplasm of breast from Last 3 Months or Most Recently Relevant to Health Maintenance Results * DXA BONE DENSITY STUDY 1+ SITS AXIAL SKEL (06/20/2019 1:08 PM EDT) Anatomical Region Laterality Modality Bone Densitometr y 06/01/2019 10:5 8 AM EDT Narrative 06/20/2019 2:16 PM EDT BONE DENSITY ? Lumbar Spine T-score is -2.4 ?? (SD relative to 20-29 y/o adult) Z-score is -0.6 ??(SD relative to age matched peers) This is consistent with osteopenia by criteria defined by the WHO. Left Hip T-score is -2.5 Z-score is -1.0 This is consistent with osteoporosis by criteria defined by the WHO. Impression: Based on the World Health Organization criteria, Sarah Kemp should be classified as having osteoporosis. The [facility] Department of Internal Medicine recommends using National Osteoporosis Foundation (NOF) guidelines in treatment decisions related to osteoporosis. NOF guidelines suggest considering treatment for postmenopausal women and men aged 50 or older presenting with the following: History of hip or vertebral fracture. T-score less than or equal to -2.5 (DXA) at the femoral neck, total hip, or spine, after appropriate evaluation to exclude secondary causes. Low bone mass (T-score between -1.0 and -2.5 at the femoral neck or spine) AND a 10-year probability of a hip fracture greater than or equal to 3% OR a 10-year probability of a major osteoporosis-related fracture greater than or equal to 20% based on the [place]-adapted WHO algorithm Please note that all treatment decisions require clinical judgment and consideration of individual patient factors, including patient preferences, co-morbidities, previous drug use, risk factors not captured in the FRAX model (e.g., frailty, falls, vitamin D deficiency, increased bone turnover, interval significant decline in bone density) and possible under- or over-estimation of fracture risk by FRAX. Procedure Note Donnie Curiel - 10/14/2022 BONE DENSITY Lumbar Spine T-score is -2.4 (SD relative to 20-29 y/o adult) Z-score is -0.6 (SD relative to age matched peers) This is consistent with osteopenia by criteria defined by the WHO. Left Hip T-score is -2.5 Z-score is -1.0 This is consistent with osteoporosis by criteria defined by the WHO. Impression: Based on the World Health Organization criteria, aSrah Kemp should beclassified as having osteoporosis. The [facility] Department of Internal Medicine recommendsusing National Osteoporosis Foundation (NOF) guidelines in treatmentdecisions related to osteoporosis. NOF guidelines suggest consideringtreatment for postmenopausal women and men aged 50 or older presentingwith the following: History of hip or vertebral fracture. T-score less than or equal to -2.5 (DXA) at the femoral neck, total hip,or spine, after appropriate evaluation to exclude secondary causes. Low bone mass (T-score between -1.0 and -2.5 at the femoral neck or spine)AND a 10-year probability of a hip fracture greater than or equal to 3% ORa 10-year probability of a major osteoporosis-related fracture greaterthan or equal to 20% based on the [place]-adapted WHO algorithm Please note that all treatment decisions require clinical judgment andconsideration of individual patient factors, including patientpreferences, co-morbidities, previous drug use, risk factors not capturedin the FRAX model (e.g., frailty, falls, vitamin D deficiency, increasedbone turnover, interval significant decline in bone density) and possibleunder- or over-estimation of fracture risk by FRAX. Filomena ARRIAGA IMG DXA PROCEDURES * SCR MAMMO BI INCL CAD (03/01/2019 1:55 PM EDT) Anatomical Region Laterality Modality Radiographic Leanna ging 01/07/2019 1:30 PM EDT Narrative 03/02/2019 2:44 PM EDT This is a summary report. The complete report is available in the patient's medical record. If you cannot access the medical record, please contact the sending organization for a detailed fax or copy. Full field digital screening mammography, reviewed with CAD and compared to the previous mammogram of 01/26/2018. ??The breasts are composed of fatty and fibroglandular tissue. ??No suspicious mass, architectural distortion or suspicious calcifications are identified. IMPRESSION: : No mammographic evidence of malignancy. BIRADS 1-Negative; N. 5 year breast cancer risk assessment 5.4 % Lifetime breast cancer risk assessment 20.3 % Breast cancer risk category High (>20%) Procedure Note Evonne Foreman MD - 10/14/2022 This is a summary report. The complete report is available in thepatient's medical record. If you cannot access the medical record, pleasecontact the sending organization for a detailed fax or copy. Full field digital screening mammography, reviewed with CAD and comparedto the previous mammogram of 01/26/2018. The breasts are composed of fattyand fibroglandular tissue. No suspicious mass, architectural distortionor suspicious calcifications are identified. IMPRESSION: : No mammographic evidence of malignancy. BIRADS 1-Negative; N. 5 year breast cancer risk assessment 5.4 % Lifetime breast cancer risk assessment 20.3 % Breast cancer risk category High (>20%) Filomena ARRIAGA IMG XR PROCEDURES from Last 3 Months or Most Recently Relevant to Health Maintenance Care Teams Coat Fitter Relationship Specialty Start Date End Date Mandie Mckenzie MD PCP - General Internal Medicine 1/23/19
== END 2024-11-23 14:29 | disposition home or self-care (01) ==
PROVIDERS: PCP Internal Medicine; Visit Provider Internal Medicine Rheumatology
DX: S16.1XXA Strain of muscle, fascia and tendon at neck level, initial encounter (principal)
CPT/HCPCS: 99213; G2211

== ENCOUNTER → 2024-11-23 13:45 | Outpatient (BNVA) | payer MEDICARE, MEDICAID, SELFPAY | PROVIDERS: PCP Internal Medicine; Visit Provider Internal Medicine Rheumatology | DX: S16.1XXD Strain of muscle, fascia and tendon at neck level, subsequent encounter (principal) | CPT/HCPCS: 99212 ==

== ENCOUNTER 2025-01-10 13:00 | Outpatient (RCR) | payer MEDICARE, MEDICAID, SELFPAY ==
--- NOTE | 2024-12-15 14:06 | MHC.PT.EP ---
[facility] [place] Office [place] Office [place] Office [address] [phone] F: [phone] F: [phone] F: [phone] F: [phone] Physical Therapy Plan of Care Date of Evaluation: 12/15/24 Date of Surgery: n/a Diagnosis: cervical myofascial strain Assessment: Patient is a 69 year old female presenting to PT with complaints of pain in her neck. Pt reports onset of pain began years ago due to insidious onset. She presents today with impairments in pain, ROM, posture, tissue density. Pt's current occupation is none, with baseline physical activities including ADLs. Pt expresses custodial goal of reducing pain, and is motivated to work towards this in PT. Clinical presentation today is most consistent with signs and sx associated with neck pain and pt will benefit from skilled PT 2 week x 4 weeks to address the following problems and impairments noted upon evaluation: pain, ROM, posture, tissue density. These problems limit the patient with the following functional activities: ADLs. The prescribed treatment plan of care is medically necessary. Co-morbidities of on eliquis, afib, osteoporosis were identified and taken into considerations of plan of care. Pt was educated on HEP, role of PT, prognosis, POC. Frequency and Duration: The patient will be seen 2 x week x 4 weeks Short Term Goals: Pt will demonstrate improved pain at rest to <5/10 in 2 weeks. Pt will demonstrate initial changes to home posture when watching tv and being on her phone in 2 weeks. Carbonizer Goals: Pt will demonstrate improved NDI score by 10% in 4 weeks for improved functional mobility. Pt will demonstrate ability to complete ADLs with min to no pain in 4 weeks for improved functional mobility. Treatment Plan: Modalities to reduce pain, spasms and effusion. Manual therapy to restore motion and function. Therapeutic exercise to improve strength and flexibility. Neuromuscular re-education for posture and balance. Therapeutic activities to return to functional activities of daily living. Electronically signed by: Linda Fernandez, PT, DPT, ATC Please sign and return to therapist. Thank you for your referral.
--- NOTE | 2025-02-14 10:18 | MHC.PT.DC ---
[facility] [place] Office [place] [facility] [place] Office [address] [phone] F: [phone] F: [phone] F: [phone] F: [phone] Physical Therapy Discharge Report Diagnosis: cervical myofascial strain Date of Surgery: n/a Date of Evaluation: 12/15/24 Date of Discharge: 02/14/25 Treatments to Date: 3 Cancellations to Date: 2 No Shows to Date: 0 Discharge Status: Patient Elected to Stop Recommend MD Follow-up Discharge Summary: Pt has not attended skilled PT in >30 days so therefore to be d/c. Electronically signed by: Linda Fernandez, PT, DPT, ATC Please sign and return to therapist. Thank you for your referral.
== END 2025-02-14 10:19 | disposition home or self-care (01) ==
LOC: HO.PTCHIC 13:00
PROVIDERS: Visit Provider Internal Medicine Rheumatology
DX: S16.1XXD Strain of muscle, fascia and tendon at neck level, subsequent encounter (principal)
CPT/HCPCS: 97110; 97161

== ENCOUNTER 2025-01-13 12:58 | Outpatient (AMB) | payer MEDICARE, MEDICAID, SELFPAY ==
[2025-01-13 13:10] VITALS: BP 130/70; PULSE 83; BMI 28.2
--- NOTE | 2025-01-13 13:10 | A.OFFVIS_ITS ---
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 acidoph-L. plantar-L. 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 She follows with Dr. Wild for EP. She was referred here by her PCP for AFib and cardiovascular clearance for knee surgery. Today she presents for cardiology consultation. She reports having history of atrial fibrillation, 1st diagnosed in 2021. She did have cardioversion at that time on metoprolol and had recurrent AFib. She did have a 2nd cardioversion on flecainide and has reportedly maintained normal sinus rhythm since that time. She takes her Eliquis without any bleeding issues. She denies any other known cardiac issues. She does anterior chest tightness at times without pattern. She has no clear discomfort brought on by exertion. She has mild shortness of breath if she over exerts. No heart palpitations, lightheadedness, presyncope, syncope, falls. She ambulates with a cane. No PND, orthopnea or edema. She is compliant with her medications. She wears her CPAP at least 4 hours each night. She has been doing only light activities because of her knee pain. She is scheduled to undergo a total knee replacement on 02/[address] Garcia. She tells me she has borderline diabetes and hyperlipidemia. She previously worked at [employer] and is now retired. Both her parents tied from Congestive heart failure at advanced ages. She lives with her , daughter and dog. [facility] Medical History (Updated 01/13/25 @ 15:04 by SHANE Malik) Sleep apnea Atrial fibrillation Surgical History (Updated 01/13/25 @ 13:18 by Maureen Khan CMA) History of cardioversion Family History (Updated 01/13/25 @ 13:19 by Maureen Khan CMA) Father Eye cancer CHF (congestive heart failure) Mother DM2 (diabetes mellitus, type 2) Enlarged heart CHF (congestive heart failure) Social History (Updated 01/13/25 @ 13:20 by Maureen Khan CMA) Alcohol intake: former Patient Tobacco Use Status: Never used Tobacco Review of Systems Const All systems reviewed & are unremarkable except as noted in HPI and below Denies chills, Denies daytime sleepiness, Denies fatigue, Denies fever(s), Denies poor appetite, Denies snoring, Denies stops breathing during sleep, Denies weakness, Denies weight gain and Denies weight loss Eyes Denies loss of vision ENT Denies dizziness and Denies hearing loss Card Details: anterior chest tightness that occurs randomly Denies chest pain, Denies irregular heart rhythm, Denies claudication, Denies leg edema, Denies lightheadedness, Denies palpitations, Denies dyspnea on exertion and Denies orthopnea Resp Denies cough, Denies excessive phlegm production, Denies dyspnea on exertion, Denies snoring and Denies wheezing GI Denies abdominal pain, Denies hematochezia, Denies change in bowel habits, Denies nausea and Denies vomiting Denies urinary frequency and Denies dysuria Musc Details: pain in right knee with ambulation, uses cane Denies arthralgias, Denies muscle weakness, Denies numbness and Denies other Skin/Breast Denies nail changes and Denies rash Neuro Denies Abnormal speech present, Denies dizziness, Denies loss of vision, Denies memory loss, Denies numbness and Denies weakness Psych Denies depression and Denies memory loss Endo Denies fatigue and Denies palpitations Gregg/Lymph Denies easy bruising Aller/Immun Denies wheezing Physical Exam Vital Signs: BMI result Body Mass Index 28.2 Const General: cooperative, healthy appearing, comfortable and no acute distress Orientation/consciousness: patient oriented x3 Neck Neck: Yes normal visual inspection and Yes no JVD Resp Effort & Inspection: normal respiratory effort Auscultation: clear to auscultation bilaterally, no rales, no rhonchi and no wheezes Cardio Rate: regular rate Rhythm: regular rhythm Heart sounds: S1 normal heart sound present, S2 normal heart sound present, no gallops, no murmurs and no rubs Neuro General: patient oriented x3 Speech: No Abnormal speech present Extrem General: Yes normal to inspection and No no pedal edema Psych Appearance: grossly normal Mental Status: mental status grossly normal Speech and movement: Normal speech and movement present Office Procedures EKG Details: Today, read by me, sinus rhythm with sinus arrhythmia, low-voltage QRS, rate 83, QTC 411 millisecond [id number], Complete Results Reviewed Results Reviewed: Echocardiogram 06/22/2023 showed EF 60-65%, no regional wall motion abnormalities, left atrium normal size normal RV. Chest CT 09/11/2023 states heart is normal size, no pericardial effusion and no coronary artery calcifications. Assessment & Plan Assessment & Plan (1) Atrial fibrillation: Code(s): I48.91 - Unspecified atrial fibrillation Category: Medical Plan: History of paroxysmal atrial fibrillation with 2 cardioversions in the past, currently suppressed with flecainide and metoprolol. She is on Eliquis for anticoagulation. EKG done today shows normal sinus rhythm with sinus arrhythmia, rate 83, QTC 411 milliseconds. Last echo 06/22/2023 showed EF 60- 65%, no regional wall motion abnormalities, both atria normal size. Will continue current med management without change. (2) Tightness in chest: Code(s): R07.89 - Other chest pain Category: Medical Plan: Random reports of chest tightness that causes her concern. Cardiac risks of age, borderline diabetes, borderline hyperlipidemia, remote smoking. EKG today does not show ischemic findings. Will order pharmacological nuclear stress test to evaluate for ischemia. Will update echocardiogram. Plan to call her with results. Continue with risk factor modification. -cardiology office visit 4-5 months, sooner if needed. (3) Preop cardiovascular exam: Code(s): Z01.810 - Encounter for preprocedural cardiovascular examination Category: Medical Plan: Preop for total knee replacement on 02/[address] Garcia. Cardiac testing being done and then this note will be updated with clearance. (4) Sleep apnea: Code(s): G47.30 - Sleep apnea, unspecified Category: Medical Plan: Known history of sleep apnea with CPAP use. She reports compliance of at least 4 hours each night. Plan Time spent on chart review, documentation, interview and assessment Coding Level of Care Code New Pt Level 4 (12337) Complex EM visit Add On G2211 Diagnoses Atrial fibrillation I48.91 Tightness in chest R07.89 Preop cardiovascular exam Z01.810 Sleep apnea G47.30 CPT Codes EKG - CPT: 38344-[id number], Complete ([id number]) Time Spent (min) 36
--- OUTSIDE RECORDS SUMMARY | 2025-01-13 15:22 | XMS_ITS | Continuity of Care Document ---
Author Organization [facility] Address [address] [place] [id number]- Care Team Providers Care Safety Consultant Name Role Phone Lily SALDANA, [facility] Primary Care Physician Encounter [facility] [place] Date(s): 12/02/24 - 01/01/25 [facility] [address] [place] [id number] Encounter Type: Triage Allergies, Adverse Reactions, Alerts Substance Criticality Severity Reaction Reaction Severity Status erythromycin High criticality Severe GI UPSET Active penicillin hives Active Premarin Active traZODone C/O - a headache Act tono amoxicillin Rash Active morphine C/O - vomiting Activ e oxybutynin Active Bactrim Nausea Active Other Food Allergy lactose intolerant, tomatoes Active gabapentin containing compounds Stomach upset Active Immunizations Given and Recorded Vaccine Date Status Refusal Reason RSV vaccine, preF A-preF B, recombinant 1 09/25/23 Given SARS-CoV-2(COVID-19)mRNA-LNP vac(rap227) 09/15/23 Recorded influenza virus vaccine, inactivated 2 [...] Olaf rded influenza virus vaccine, inactivated 11/20/10 Olfa rded [id number] 12y+ bivalent booster vax 08/23/22 Recorded SARS-CoV-2 [...] Vaccine (oldterm) 4 10/07/07 Given 1Result Comment: [facility] [id number] 2Result Comment: [facility]: [id number] 3Result Comment: [09/06/2018] DAYANA PRESERVATIVE FREE 4Admin [...] Team Personnel Name: Trang Bautista MD Position: [facility] Physician - Primary Care Member Role: PCP Address: [address] [place] [address] Telecom: Care Team Related Persons Name: RAMIRO JOHNSON Name: RAMIRO JOHNSON Name: AMAN JOHNSON Name: AMAN JOHNSON Name: AMAN JOHNSON Insurance Providers Guarantor name: LAILA JOHNSON Health Plan Information #: 1 Payer: MEDICARE PART B OUTPT Member Number: NA Policy Number: NA Group Number: NA Health Plan Information #: 2 P[facility] Member Number: NA Policy Number: NA Group Number: NA
--- OUTSIDE RECORDS SUMMARY | 2025-01-13 15:22 | XMS_ITS | Clinical Summary ---
Author Organization [facility] Address [address] [place] [address] Care Team Providers Care Machine Inker Name Role Phone Mandie Mckenzie MD Primary Care Provider [phone] Surgical History Surgery Date Site/Laterality Comments BREAST BIOPSY Bilateral PROCEDURE: BX BREAST; PERC NEEDLE CORE W/IMAG GUID; COMMENT: 2 on left breast 1 left side neg BREAST SURGERY PROCEDURE: MI UNLISTED PROCEDURE BREAST; COMMENT: bilateral breast reduction x 2 1984 &2006 OTHER SURGICAL HISTORY 07/18/2015 Right PROCEDURE: MI EXCISION NAIL MATRIX PERMANENT REMOVAL; COMMENT: partial matrixectomy by Dr. Brandt OTHER SURGICAL HISTORY 07/24/2017 Left PROCEDURE: MI EXCISION NAIL MATRIX PERMANENT REMOVAL; COMMENT: partial matrixectomy medial and lateral borders by Dr. Galo OTHER SURGICAL HISTORY 07/24/2017 Left PROCEDURE: MI EXCISION NAIL MATRIX PERMANENT REMOVAL; COMMENT: partial [...] drink = 0.6 oz pur e alcohol) Comments Unknown Sex and Gender Information Value Date Recorded Sex Assigned at Not on file Legal Sex Female 12:06 PM EST Gender Identity Not on file Sexual Orientation [...] Zoster Vaccines Completed 05/07/2019, 02/19/2019 Pneumococcal Vaccine: 50+ Years Completed 10/23/2020, 10/22/2019 HIB Vaccines Aged [...] patient's age to complete this topic Meningococcal B Vacine Aged Out No lo nger eligible based on patient's age to complete [...] should be classified as having osteoporosis. [facility] Department of Internal Medicine recommends using National [...] World Health Organization criteria, Sarah Kemp should beclassified as having osteoporosis. [facility] Department of Internal Medicine recommendsusing National Osteoporosis [...] or over-estimation of fracture risk by FRAX. us Filomena ARIRAGA IMG DXA PROCEDURES Final Resu lt * SCR MAMMO BI INCL CAD (03/01/2019 [...] % Breast cancer risk category High (>20%) us Filomena ARRIAGA IMG XR PROCEDURES Final Resul t from Last 3 Months or Most Recently Relevant to Health Maintenance Care Teams Machine Inker Relationship Specialty Start Date End Date Mandie Mckenzie MD PCP - General Internal Medicine 11/17/18
--- OUTSIDE RECORDS SUMMARY | 2025-01-13 15:22 | XMS_ITS | Data Portability ---
Author Organization [place] - [facility], Allergy Address [address] [address] Care Team Providers Care Clerk Cashier Name Role Phone FLOYDMIKAELCHRISWILTON SIM Primary Care Provider [phone] Assessment Encounter Date Assessment Date Assessment LastModified [...] schedule hearing exam in the near future. [email or web address] Not available 08/24/2024 14:23:03 Plan of Treatment Reminders Order Date Submit Date Provider Last Modified By Organization Details Last Modified Time Details Appointments None recorded. Lab None recorded. Referral None recorded. Procedures None recorded. Surgeries None recorded. Imaging None recorded. Medication Orders Ciprodex 0.3 %-0.1 % ear drops,susp ension 2023 024 [id number], [id number] [facility], [place], [address], 13:14:11 Patient TargetsNo targets recorded. Patient InstructionsNo [...] Recorded Time Otorrhea of bilatera l ears [id number] 09281 Active 2021 Otorrhea , bilatera l; Note: Date Diagnose d: 05/29/2022 10:56 AM (H92.13) Not Available [facility] 4 02:48:15 Bleeding from nose 741307893 Active 2022 Epistaxi s; Note: Date Diagnose d: 3 11:58 AM (R04.0) Not Available [facility] 4 02:48:21 Itching of skin 125302881 Active 2019 Pruritus , unspecif ied; Note: Date Diagnose d: 02/02/2020 10:14 AM (L29.9) Not Available [facility] 4 02:48:16 Dysphoni a 05333610 Active 2020 Hoarsene ss; Note: Date Diagnose d: 03/29/2021 11:16 AM (R49.0) Not Available [facility] 4 02:48:21 Xerostom ia 36728992 Active 2021 Dry mouth, unspecif ied; Note: Date Diagnose d: 2 11:57 AM (R68.2) Not Available [facility] 4 02:48:22 Dizzines s and giddines s 658905221 Active 2022 Dizzines s and giddines s; Note: Date Diagnose d: 3 2:35 PM (R42) Not Available [facility] 4 02:48:16 Posterio r rhinorrh ea 27948130 Active 2022 Postnasa l drip; Note: Date Diagnose d: 3 11:58 AM (R09.82) Not Available [facility] 4 02:48:17 Sensorin eural hearing loss of bilatera l ears 527716278 Active 2019 Sensorin eural hearing loss, bilatera l; Note: Date Diagnose d: 06/27/2020 11:47 AM (H90.3) Not Available [facility] 4 02:48:18 Otorrhea of right ear 12042056008 88204 Active 05/23/ 2023 Otorrhea , right ear; Note: Date Diagnose d: 3 4:03 PM (H92.11) Not Available [facility] 4 02:48:19 Pain of left temporom andibula r joint 95327924332 153419 Active 2023 Arthralg ia of left temporom andibula r joint; Note: Date Diagnose d: 10/30/2023 1:26 PM (M26.622 ) Not Available [facility] 4 02:48:18 Chronic mycotic otitis externa 238233338 Active 2021 Chronic mycotic otitis externa; Note: Date Diagnose d: 2 11:18 AM (380.15) Not Available [facility] 4 02:48:14 Impacted cerumen in left ear 25339676739 30221 Active 2022 Impacted cerumen, left ear; Note: Date Diagnose d: 3 1:27 PM (H61.22) Impact ed cerumen, left ear; Note: Date Diagnose d: 08/11/20 22 1:12 PM (H61.22) ; Start Date : 08/11/20 Not Available [facility] 4 02:48:20 Gastroes ophageal reflux disease without esophagi tis 973526975 Active 2021 Gastro-e sophagea l reflux disease without esophagi tis; Note: Date Diagnose d: 2 11:57 AM (K21.9) Not Available [facility] 4 02:48:22 Diffuse otitis externa 97163134 Completed 202005/27/2024 Diffuse otitis externa, right ear; Note: Date Diagnose d: 1 8:32 AM (H60.311 ) Not Available [facility] 4 02:48:14 Candidal otitis externa 16279143 Active 2021 Candidal otitis externa; Location : right No te: Date Diagnose d: 08/11/20 22 1:12 PM (B37.84) Not Available [facility] 4 02:48:23 Bilatera l diffuse otitis externa 37409021399 19696 Completed 202105/27/2024 Diffuse otitis externa, bilatera l; Note: Date Diagnose d: 2 11:19 AM (H60.313 ) Not Available [facility] 4 02:48:19 Referred otalgia 91778990 Active 2020 Otalgia secondar y to TMJ; Note: Date Diagnose d: 1 3:14 PM (388.72) Not Available [facility] 4 02:48:23 Dysphagi a 50051300 Active 2021 Dysphagi a, unspecif ied; Note: Date Diagnose d: 02/27/2022 1:39 PM (R13.10) Not Available [facility] 4 02:48:18 Otalgia of right ear 4930880164 Active 2022 Otalgia, right ear; Note: Date Diagnose d: 3 11:58 AM (H92.01) Not Available [facility] 4 02:48:17 Eustachi an tube disorder 45005495 Active 2019 Other specifie d disorder s of Eustachi an tube, unspecif ied ear; Note: Date Diagnose d: 02/02/2020 10:14 AM (H69.80) Not Available [facility] 4 02:48:19 Superfic ial mycosis 484223143 Active 2021 Other specifie d superfic ial mycoses; Note: Date Diagnose d: 2 11:19 AM (B36.8) Not Available [facility] 4 02:48:14 Otalgia of left ear 0885213690 Active 2019 Otalgia, left ear; Note: Date Diagnose d: 02/02/2020 10:13 AM (H92.02) Not Available [facility] 4 02:48:20 Impacted cerumen of bilatera l ears 11628025481 57289 Active 2020 Impacted cerumen, bilatera l; Note: Date Diagnose d: 03/29/2021 11:16 AM (H61.23) Not Available [facility] 4 02:48:20 Mixed conducti ve and sensorin eural hearing loss of right ear 66440740844 105 Active 2023 JENISE KNIGHT, AUD [address] [place],[address], [place], [place], [address] , [facility] - [facility] 4 12:20:06 Sensorin eural hearing loss 58980344 Active 2023 JENISE KNIGHT, AUD [address] [place],[address], [place], [place], [address] , [place] - [facility] 4 12:20:21 Arthralg ia of temporom andibula r joint 82828425 Active 2023 MARILYN ABDI PA-C [address] [facility] [place],[facility] [address], [place], [place], [address] , [facility] - [facility] 4 13:13:26 Acute otitis externa 36032323 Active 2023 MARILYN ABDI PA-C [address] [facility] [address], [place], [place], [address] , [facility] - [facility] 4 13:13:31 Acute serous otitis media of bilatera l ears 90043188863 23861 Active 2023 Acute serous otitis media, bilatera l; Note: Date Diagnose d: 4 1:10 PM (H65.03) Not Available [facility] 4 02:48:15 Cough 39458574 Active 2023 Cough, unspecif ied; Note: Changed from R05 to R05.9 (12/18/19 24 5:00 PM) , Date Diagnose d: 4 1:10 PM (R05) Not Available [facility] 4 02:48:16 Acute maxillar y sinusiti s 58870723 Active 2023 Acute maxillar y sinusiti s, unspecif ied; Note: Date Diagnose d: 4 1:10 PM (J01.00) Not Available [facility] 4 02:48:21 Allergic rhinitis caused by pollen 89261695 Active 2023 Allergic rhinitis due to pollen; Note: Date Diagnose d: 4 3:06 PM (J30.1) Not Available [facility] 4 02:48:22 Bilatera l disorder of Eustachi an tubes 76967541606 70058 Active 2023 MARILYN ABDI PA-C [address] [facility],[place] [address], [place], [address] , [facility] - [facility] 4 14:24:03 Nasal congesti on 67795628 Active 2023 MARILYN ABDI PA-C [address] [facility],[place] [address], [place], [address] , [facility] - [facility] 14:24:07 Problem Notes None recorded. Procedures Surgical History Date Name Laterality Status Provider Name and Address Organization Details Recorded Time Cerumen removal without microscope bilat completed MARILYN ABDI PA-C [address] [facility],[place] [address], [place], [address], [facility] - [facility] 08/24/2024 14:22:06 Comp Audio with Tymps (84585 & 76261) completed SANDIP PROCTOR [address] [facility],[place] [address], [place], [address], [facility] - [facility] 04/11/2024 12:19:43 Imaging Results Imaging Date [...] Name and Address Organization Details Recorded Time 55878 meloxicam medicatio n other Not available Not available 03/08/2024 73102 RxNorm React ion: unkno wn, unspe cifie d;; Not Available [facility] 4 00:59:14 63748 estradiol medicatio n other Not available Not available 03/08/2024 4083 RxNorm React ion: unkno wn, unspe cifie d;; Not Available [facility] 4 00:59:15 22264 oxycodone medicatio n other Not available Not available 03/08/2024 7804 RxNorm React ion: unkno wn, unspe cifie d;; Not Available [facility] 4 00:59:16 79000 doxycycli ne Not available other Not available Not available 03/08/2024 3640 RxNorm React ion: unkno wn, unspe cifie d;; Not Available [facility] 4 00:59:17 03020 gabapenti n medicatio n other Not available Not available 03/08/2024 40868 RxNorm React ion: unkno wn, unspe cifie d;; Not Available [facility] 4 00:59:19 75320 Bactrim medicatio n other Not available Not available 03/08/2024 91313 9 RxNorm React ion: unkno wn, unspe cifie d;; Not Available [facility] 4 00:59:20 59920 amoxicill in medicatio n hives Not available Not available 03/08/2024 723 RxNorm React ion: skin rashe s, hives ;; Not Available [facility] 4 00:59:22 61664 azithromy char medicatio n other Not available Not available 03/08/2024 99750 RxNorm React ion: unkno wn, unspe cifie d;; Not Available [facility] 4 00:59:24 53344 Fosamax medicatio n other Not available Not available 03/08/2024 13758 5 RxNorm React ion: unkno wn, unspe cifie d;; Not Available [facility] 4 00:59:27 41199 oxybutyni n chloride Not available other Not available Not available 03/08/2024 64950 RxNorm React ion: unkno wn, unspe cifie d;; Not Available [facility] 4 00:59:30 72882 trazodone medicatio n other Not available Not available 03/08/2024 95343 RxNorm React ion: unkno wn, unspe cifie d;; Not Available [facility] 4 00:59:33 39996 Premarin medicatio n other Not available Not available 03/08/202446221 6 RxNorm React ion: unkno wn, unspe cifie d;; Not Available [facility] 4 00:59:36 82386 penicilli n V potassium medicatio n other Not available Not available 03/08/202435254 5 RxNorm React ion: unkno wn, unspe cifie d;; Not Available [facility] 4 00:59:41 43999 morphine medicatio n other Not available Not available 03/08/2024 7052 RxNorm React ion: unkno wn, unspe cifie d;; Not Available [facility] 4 00:59:45 60556 Actos medicatio n other Not available Not available 03/08/2024 66314 2 RxNorm React ion: unkno wn, unspe cifie d;; Karyn sears [place] - [facility] 4 11:48:39 54858 erythromy char ethylsucc inate medicatio n other Not available Not available 03/08/2024 4056 RxNorm React ion: unkno wn, unspe cifie d;; Not Available [facility] 4 00:59:54 Medications Name Sig Start Date Stop Date Status Note LastModified by Organization Details LastModified Time doxycycli ne hyclate 100 mg capsule TAKE ONE CAPSULE BY MOUTH TWICE A DAY FOR 10 DAYS 04/11 completed Not Available Not Available Not Available polyethyl rupesh glycol 3350 17 gram oral powder packet 11/28 completed Medicati on ID: [id number] B rand Name: polyethy carlton glycol 3350 [...] release 24 hr active Medicati on ID: 653382 B rand Name: metoprol ol succinat e Send Method: E-Prescr ibed Sub s Allowed: subs OK Medic ationGen ericName : metoprol ol succinat e Not Available Not Available Not Available clotrimaz ole-betam ethasone 1 %-0.05 % lotion Apply a small amount three times a day as directed 04/11 completed Medicati on ID: 533013 D uration Value: 14 Brand Name: clotrima zole-bet amethaso ne Send Method: E-Prescr ibed Sub s Allowed: subs OK Speci al Instruct ion: Apply with finger to ear canal skin. Me dication GenericN pushpa: clotrima zole-bet amethaso ne Medic ation ID: [id number] D uration Value: 14 Brand Name: clotrima [...] eye drops 08/11 completed Medicati on ID: 196195 B rand Name: ketorola c Send Method: [...] drops,sylvia pension 08/11 completed Medicati on ID: 607462 B rand Name: predniso lone acetate Send [...] layed release 11/28 completed Medicati on ID: [id number] B rand Name: pantopra zole Sen d Method: E-Prescr ibed Sub s Allowed: subs OK Medic ationGen ericName : pantopra zole Not Available Not Available Not Available Cipro 500 mg tablet 1 tablet by mouth 04/11 completed Medicati on ID: [id number] D uration Value: 7 Prescri bed By Name: TAMAR Knight nd Name: Coco Sunshine nd Method: E-Prescr ibed Sub s Allowed: subs OK Medic ationGen ericName : Cipro Me dication ID: [id number] D uration Value: 7 Prescri bed By Name: TAMAR Knight nd Name: Coco Sunshine nd Method: E-Prescr ibed Sub s Allowed: subs OK Medic ationGen ericName : Cipro Not Available Not Available Not Available clotrimaz ole-betam ethasone 1 %-0.05 % topical cream Apply 1 a small amount twice a day 04/11 completed Medicati on ID: [id number] D uration Value: 14 Brand Name: clotrima zole-bet amethaso ne Send Method: E-Prescr ibed Sub s Allowed: subs OK Speci al Instruct ion: Apply with fingerti p to external ear BID x 2 weeks Me dication GenericN pushpa: clotrima zole-bet amethaso ne Medic ation ID: [id number] D uration Value: 14 Brand Name: clotrima [...] eye drops 08/11 completed Medicati on ID: [id number] B rand Name: brimonid rudi Send Method: E-Prescr ibed Sub s Allowed: subs OK Medic ationGen ericName : brimonid ine Not Available Not Available Not Available clotrimaz ole 1 % topical solution Apply 04/11 completed Medicati on ID: [id number] D uration Value: 14 Brand Name: clotrima zole Sen d Method: E-Prescr ibed Sub s Allowed: subs OK Speci al Instruct ion: 4 drops to the right ear BID x 2 weeks Me dication GenericN pushpa: clotrima zole Med ication ID: [id number] D uration Value: 14 Brand Name: clotrima zole Sen d Method: E-Prescr ibed Sub s Allowed: subs OK Speci al Instruct ion: 4 drops to the right ear BID x 2 weeks Me dication GenericN pushpa: clotrima zole Not Available Not Available Not Available betametha sone dipropion ate 0.05 % topical cream 1 a small amount 11/28 completed Medicati on ID: [id number] D uration Value: 14 Prescri bed By [...] elayed release 11/20 completed Medicati on ID: [id number] D uration Value: 30 Brand Name: omeprazo [...] mg tablet 11/20 completed Medicati on ID: [id number] D uration Value: 90 Brand Name: hydrochl [...] mg capsule 08/11 completed Medicati on ID: [id number] B rand Name: talhaoxpieter b Send Method: E-Prescr ibed Sub s Allowed: [...] to skin 11/28 completed Medicati on ID: [id number] D uration Value: 14 Prescri bed By Name: TAMAR Knight nd Name: clotricarlos Reagan d Method: E-Prescr ibed Sub s Allowed: subs OK Speci al Instruct ion: to external ears Med icationG enericNa me: clotrima zole Not Available Not Available Not Available loratadin e 10 mg tablet TAKE ONE TO TWO TABLETS BY MOUTH EVERY MORNING active Not Available Not Available No t Available naproxen 500 mg tablet 11/20 completed Medicati on ID: [id number] D uration Value: 90 Brand Name: naproxen Send Method: E-Prescr ibed Sub s Allowed: subs OK Speci al Instruct ion: TK 1 T PO BID Medi cationGe nericNam e: naproxen Not Available Not Available Not Available TobraDex 0.3 %-0.1 % eye drops,sylvia pension 08/09 completed Medicati on ID: [id number] D uration Value: 14 Prescri bed By Name: Filomena galvez MD Brand Name: TobraDex Send Method: E-Prescr ibed Sub s Allowed: subs OK Speci al Instruct ion: Instill 4 drops in the right ear BID for 14 days Med icationG enericNa me: TobraDex Not Available Not Available Not Available Mapap Arthritis Pain 650 mg tablet,ex tended release 11/28 completed Medicati on ID: [id number] D uration Value: 30 Brand Name: Mapap Arthriti s Pain Sen d Method: E-Prescr ibed Sub s Allowed: subs OK Speci al Instruct ion: TK 1 T PO Q 8 H PRN P Medica tionGene ricName: Mapap Arthriti s Pain Not Available Not Available [...] 2 drop 04/11 completed Medicati on ID: [id number] D uration Value: 30 Brand Name: DermOtic Oil Send Method: E-Prescr ibed Sub s Allowed: subs OK Speci al Instruct ion: as needed for itching Medicati onGeneri cName: DermOtic Oil Medi cation ID: [id number] D uration Value: 30 Brand Name: DermOtic [...] mcg tablet 08/11 completed Medicati on ID: [id number] D uration Value: 90 Brand Name: Adults 50 Plus Sen d Method: E-Prescr ibed Sub s Allowed: subs OK Speci al Instruct ion: TK 1 T PO D Medica tionGene ricName: Adults 50 Plus Not Available Not Available Not Available Daily-Vit e (with folic acid) 400 mcg tablet 08/11 completed Medicati on ID: [id number] B rand Name: Daily-Vi te (with folic acid) Se nd Method: E-Prescr ibed Sub s Allowed: subs OK Medic ationGen ericName : Daily-Vi te (with folic acid) Not Available Not Available Not Available Astepro Allergy 205.5 mcg (0.15 %) nasal spray [place] 1 spray into both nostrils twice a day 01/10 completed Medicati on ID: [id number] P rescribe d By Name: Geoff Jones nd Name: Astepro Allergy Send Method: E-Prescr ibed Sub s Allowed: subs OK Medic ationGen ericName : Astepro Allergy Not Available Not Available Not Available Vitals Date Recorded Body height Body mass index (BMI) Body weight Provider Name and Address Organization Details Last Updated DateTime 04/11/2024 151.13 cm 27.8 kg/m2 85923.93 g Karyn Antonio [facility] 04/11/2024 11:48:18 Date Recorded Body height Body mass index (BMI) Body weight Provider Name and Address Organization Details Last Updated DateTime 08/24/2024 151.13 cm 27.8 kg/m2 89283.93 g Whitney Wood [facility] 08/24/2024 13:39:27 Social History None recorded. [...] Note [id number] AMBROCIO SANDOVAL MD [facility] [address] [place] [address] 04/11/2024 11:30:47 04/11/2024 12:33:15 Otalgia of right ear 9610315867 H92.01 Arthralgia of temporomandibular joint 78751850 M26.629 Acute otitis externa 302 27330 H60.509 [id number] SANDIP PROCTOR [facility] [address] [place] [address] 04/11/2024 12:19:13 04/12/2024 12:46:23 Mixed conductive and sensorineural hearing loss of right ear 4781147351 9105 H90.A31 Sensorineu ral hearing loss 62830919 H90.A22 Audiologic al evaluation results: Right ear: [...] Cou ld not maintain a hermetic seal}} [id number] DMITRY WILBURN MD [facility] [address] [place] [address] 08/24/2024 13:15:02 08/24/2024 14:13:43 Bilateral disorder of Eustachian tubes 8665671883 571684 H69.93 Nasal congestion 5246319 0 R09.81 Health Concerns Section Related Observation LastModified by Organization Detai ls LastModified Time None Recorded Concern Status LastModified by Organization Details LastModified Time None Recorded Advance Directives Directive None Recorded Payers Encounter Date Sequence Insurance Name Policy Number Policy Ahuja Covered Member ID Ahuja Member ID Guarantor Name 04/11/2024 1 [place] [employer] Sarah Viridiana [id number] Sarah E Viridiana 04/11/2024 2 [place] [employer] [facility] Sarah Viridiana [id number] Sarah E Viridiana 04/11/2024 1 [place] [employer] Sarah Viridiana [id number] Sarah E Viridiana 04/11/2024 2 [place] [facility] Asrah Viridiana [id number] Sarah E Viridiana 08/24/2024 1 [place] [employer] Sarah Viridiana [id number] Sarah E Viridiana 08/24/2024 2 [place] [facility] Sarah Viridiana [id number] Sarah E Viridiana Notes Date Note Type [...] other side is unaffected. AMBROCIO ARITA MD [address] [place] [address], [place], [address], [facility] - [facility] 04/11/2024 16:59:59 08/24/2024 text/html 68-year-old gamal hernandez presents for cerumen. Has been having more postnasal drip and nasal congestion which she feels is affecting her ears causing ear fullness. Cannot use Flonase due to glaucoma. DMITRY WILBURN MD [address] [place] [address], [place], [address], [place] - [facility] 08/25/2024 08:54:43 OBGyn Episode No OBEpisode recorded.
== END 2025-01-13 13:53 | disposition home or self-care (01) ==
LOC: HO.HCS 12:59
PROVIDERS: PCP Internal Medicine; Visit Provider Nurse Practitioner Family
DX: I48.91 Unspecified atrial fibrillation (principal); R07.89 Other chest pain; Z01.810 Encounter for preprocedural cardiovascular examination; G47.30 Sleep apnea, unspecified
CPT/HCPCS: 93010; 99204; G2211

== ENCOUNTER → 2025-01-13 12:58 | Outpatient (BNVA) | payer MEDICARE, MEDICAID, SELFPAY | PROVIDERS: PCP Internal Medicine; Visit Provider Nurse Practitioner Family | DX: Z01.810 Encounter for preprocedural cardiovascular examination (principal); I48.91 Unspecified atrial fibrillation; R07.89 Other chest pain; G47.30 Sleep apnea, unspecified | CPT/HCPCS: 93005; 99202 ==

== ENCOUNTER → 2025-01-27 13:52 | Outpatient (REF) | payer MEDICARE, MEDICAID, SELFPAY ==
--- NOTE | 2025-01-27 14:01 | CA_ITS ---
Transthoracic Echocardiogram Patient (Last, First, Middle): Sarah Kemp, Gender: Female Date of : 1955 Age: 69 Procedure Date: 01/27/2025 Procedure Type: Transthoracic Echocardiogram Location: OP Height: 152.4 cm Weight: 63.5 kg BSA: 1.60 m2 Heart Rate: bpm BP: 124 / 70 mmHg Manager Card: TO Referring MD: Kami George ETHNOGRAPHERTeja Symptoms: I48.91 - Unspecified atrial fibrillation Study Quality: Fair/Contrast ECG Rhythm: Sinus Conclusions: - The left ventricular systolic function is normal. The calculated ejection fraction is 70% by biplane method. - No obvious valvular pathology seen on this study. Findings Procedure Information Contrast agent, definity, is being given per protocol without apparent complications. Left Ventricle Normal left ventricular cavity size. There is normal left ventricular wall thickness. The left ventricular systolic function is normal. The calculated ejection fraction is 70% by biplane method. There is no evidence of regional wall motion abnormalities. Diastolic function is normal for age. Right Ventricle Normal right ventricular cavity size. There is low normal right ventricular systolic function. Atria Both atria are normal in size. Aortic Valve There is a normal trileaflet aortic valve. There is no aortic valve stenosis. There is no aortic valve regurgitation. Mitral Valve The mitral valve appears normal. There is trace mitral valve regurgitation. There is no mitral valve stenosis. Pulmonic Valve The pulmonic valve is likely normal. Tricuspid Valve There is mild tricuspid valve regurgitation. There is no evidence of pulmonary hypertension. Great Vessels The asc aorta is normal in size. Venous The inferior vena cava is normal in size and collapses greater than 50% with inspiration. Pericardium/Pleural There is a trivial pericardial effusion. Prior Study Comparison No prior study available for comparison. Recommendations, Care & Conclusions No obvious valvular pathology seen on this study. Measurements 2D Linear Measurements IVSd: 0.72 0.6-0.9/0.6-1.0 cm LVIDd: 4.39 3.9-5.3/4.2-5.9 cm LVIDd Index: 2.74 2.4-3.2/2.2-3.1 cm/m2 LVIDs: 3.15 2.0-3.6 cm LVPWd: 0.79 0.7-1.1 cm LA Diam: 3.00 2.7-3.8/3.0-4.0 cm LAIDs Index: 1.88 1.5-2.3 cm/m2 LV Mass: 125.61 67-162/88-224 g LV Mass Index: 78.50 43-95/49-115 g/m2 LVOT Diam: 1.80 3.0+(-)1.3 cm 2D Systolic Function EF 4C: 68.90 >55% EF 2C: 72.30 >55% EF BiP: 70.40 >55% Mitral Valve MV Pk E: 0.78 MV PK A: 0.95 MV Decel Time: 243.00 E/A: 0.80 E'Lateral: 8.27 E'Medial: 5.98 E/E' Med: 13.10 E/E' Lat: 9.50 PHT: 71.00 MVA PHT: 3.10 Decel [place]: 3.22 Aortic Valve AoV Pk Mark: 1.84 AoV Mn Mark: 1.20 AoV VTI: 0.37 AoV Pk Grad: 14.00 Aov Mn Grad: 7.00 BRIANA Cont.VTI: 1.85 LVOT LVOT Pk Mark: 1.31 LVOT Mn Mark: 0.82 LVOT VTI: 0.27 LVOT Pk Grad: 7.00 LVOT Mn Grad: 3.00 LVOT Diam: 1.80 LVOT Area: 2.54 Diastolic Function MV Pk E: 0.78 MV Pk A: 0.95 E/A: 0.80 E'Medial: 5.98 E/E' Med: 13.10 E' Laterial: 8.27 E/E' Lat: 9.50 Right Ventricle TAPSE (mm): 27.70 TVS' Mark: 9.79 Tricuspid Valve TR Pk Mark: 2.58 TR Pk Grad: 27.00 RA Press: 3.00 RVSP: 30.00 Great Vessels Aorta Sinus of Valsalva: 2.47 2.0-3.5 cm Ao Asc: 2.40 2.1-3.4 cm Updated in Other Vendor System with Status of Final Barrett Dupree MD electronically signed on 01/28/2025 11:31:51 AM with status of Final
--- OUTSIDE RECORDS SUMMARY | 2025-01-27 15:39 | XMS_ITS | Encounter Summary ---
Author Organization [facility] Address [address] [place] [address] Care Team Providers Care Dryerman/Woman Name Role Phone Community, Pcp Primary Care Provider Unavailabl e Encounter Details Date Type Department Care Team Description 04/05/2024 Orthotic/Prosthetic Clinician Report Medical Records [address] [place] [id number] [place] [address], [facility] [address] [place] [address] Social History Tobacco Use Types Packs/Day Years Used Date Smoking Tobacco: Former Cigarettes Q uit: 1989 Smokeless Tobacco: Never Alcohol Use Standard Drinks/Week Comments No 0 (1 standard drink = 0.6 oz pur e alcohol) Sex Assigned at Date Recorded Female 02/12/2021 1:04 PM E DT documented as of this encounter Plan of Treatment Not on file documented as of this encounter Visit Diagnoses Not on filedocumented in this encounter Care Teams Dryerman/Woman Relationship Specialty Start Date End Date Community, Pcp PCP - General Internal Medicine 03/09/23 documented as of this encounter
--- OUTSIDE RECORDS SUMMARY | 2025-01-27 15:39 | XMS_ITS | Encounter Summary ---
Author Organization [facility] Address [address] [place] [address] Care Team Providers Care Campus Recruiter Name Role Phone Mandie Johnston MD Primary Care Provider [facility], Pcp [facility] Encounter Details Date Type Department Care Team Description 03/02/2022 Pt. Non Urgent Medical Question Adult Medicine B - [address] [address] Filomena Naik PA-C [address] [place] [id number] Social History Tobacco Use Types Packs/Day Years Used Date Smoking Tobacco: Former Cigarettes Q uit: 1989 Smokeless Tobacco: Never Alcohol Use Standard Drinks/Week Comments No 0 (1 standard drink = 0.6 oz pur e alcohol) Sex Assigned at Date Recorded Female 02/12/2021 1:04 PM E DT COVID-19 Exposure Response Date Recorded In the last 10 days, have yo u been in contact with someone who was confirmed or suspected to have Coronavirus/COVID-19? No / Unsure 02/17/2022 3:03 PM EDT documented as of this encounter Miscellaneous Notes * Telephone Encounter - Elizabeth Sena M.A. - 03/03/2022 9:42 AM EDTFrom: Sarah Kemp To: Carlo Naik Sent: 03/02/2022 12:43 AM EDT Subject: about my blood test with Magnesium and Glucose Filomena I saw my test result and my MAGNESIUM (MG)2.7 mg/dL 1.9 - 2.6 mg/dL H Is that why I am so tired all the time ,abdominal cramping and nausea and sometimes feel dizzy? What can I do to get my Magnesium down so I can take my tums at nigh for acid reflux and take GAS-X at times? My [id number] mg/dL 70 - 100 mg/dLH but I was not fasting. Should I stop the Miralax generic but I still need to take either Tums or Pecpid AC for acid reflux. Thank You for your help. Sarah Kemp documented in this encounter Plan of Treatment Not on file documented as of this encounter Visit Diagnoses Not on filedocumented in this encounter Care Teams Campus Recruiter Relationship Specialty Start Date End Date Mandie Johnston MD PCP - General Internal Medicine 11/17/1803/08 [facility], Pcp PCP - General Internal Medicine 03/09/23 documented as of this encounter
--- OUTSIDE RECORDS SUMMARY | 2025-01-27 15:39 | XMS_ITS | Encounter Summary ---
Author Organization [facility] Address [address] [place] [address] Care Team Providers Care Acrylic Fabricator Name Role Phone Mandie Johnston MD Primary Care Provider [facility], Pcp Primary Care Provider [facility] Encounter Details Date Type Department Care Team Description 02/01/2022 Pt. Non Urgent Medical Question Adult Medicine - [address] [address] Mandie Johnston MD Social History Tobacco Use Types Packs/Day Years Used Date Smoking Tobacco: Former Cigarettes Q uit: 1989 Smokeless Tobacco: Never Alcohol Use Standard Drinks/Week Comments No 0 (1 standard drink = 0.6 oz pur e alcohol) Sex Assigned at Date Recorded Female 02/12/2021 1:04 PM E DT documented as of this encounter Miscellaneous Notes * Telephone Encounter - Bhavya Kang M.A. - 02/03/2022 8:18 AM EDTFrom: Sarah Kemp To: Jane Mckenzie Sent: 02/01/2022 12:06 AM EDT Subject: Blood Test Dr. Mckenzie I went to a urologist on 01/31/2022 . 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 Can I get a blood test f or pancreas and she also told me to ask for a blood test for my thyroid. Because I am always very tired and I sleep more than I am awake and I have no energy. I also have Lack of appetite and my stomach always hurts and feels like it is tied in knots, and my taste buds are off. Please call me to let me know .about a blood test. Thank You Sarah Viridiana you can call me @ [phone] or [phone]. documented in this encounter Plan of Treatment Not on file documented as of this encounter Visit Diagnoses Not on filedocumented in this encounter Care Teams Acrylic Fabricator Relationship Specialty Start Date End Date Mandie Johnston MD PCP - General Internal Medicine 11/17/1803/08 [facility], Pcp PCP - General Internal Medicine 03/09/23 documented as of this encounter
--- OUTSIDE RECORDS SUMMARY | 2025-01-27 15:39 | XMS_ITS | Encounter Summary ---
Author Organization [facility] Address [address] [place] [address] Care Team Providers Care Sap Bw Architect Name Role Phone Mandie Johnston MD Primary Care Provider [facility], Pcp Primary Care Provider Unavailabl e Reason for Visit * Reason Onset Date Comments refill request 02/03/2022 Encounter Details Date Type Department Care Team Description 02/03/2022 Refill Adult Medicine [address] [address] Mandie Johnston MD refill request Social History Tobacco Use Types Packs/Day Years Used Date Smoking Tobacco: Former Cigarettes Q uit: 1989 Smokeless Tobacco: Never Alcohol Use Standard Drinks/Week Comments No 0 (1 standard drink = 0.6 oz pur e alcohol) Sex Assigned at Date Recorded Female 02/12/2021 1:04 PM E DT documented as of this encounter Miscellaneous Notes * Telephone Encounter - Olivia Khan M.A. - 02/03/2022 10:59 AM EDT Faxed to pharmacy * Telephone Encounter - Quynh Michael M.A. - 02/03/2022 8:44 AM EDT Date of last office visit was 12/09/21. Pended appt for 03/12/22 Lab Results Component Value Date NA 142 11/13/2021 K 4.1 11/13/2021 CO2 30 11/13/2021 CL 106 11/13/2021 BUN 8 11/13/2021 CREAT 0.76 11/13/2021 GLU 97 11/13/2021 CA 9.7 11/13/2021 GFR > 60 11/13/2021 * Telephone Encounter - Quynh Michael M.A. - 02/03/2022 8:44 AM EDTFrom: Sarah Kemp To: Office of Jane Mckenzie Sent: 02/03/2022 12:12 AM EDT Subject: Medication Renewal Request Refills have been requested for the following medications: Other - Vitamin D3 2,000 Unit Softgel Capsule Preferred pharmacy: [id number] [place], [place] - [address] [place] [address]. AT [facility] [employer] [facility] Medication renewals requested in this message routed separately: olopatadine (P ATANOL) 0.1 % ophthalmic solution [Mandie Mckenzie MD] ondansetron (ZOFRAN) 4 MG tablet [Mandie Mckenzie MD] calcium carbonate (OS-RADHA) 600 MG Tab [Mandie Mckenzie MD] cetirizine (ZYRTEC) 10 MG tablet [Mandie Mckenzie MD] polyethylene glycol (GLYCOLAX) 17 g packet [ESTRELLITA HERNANDEZ PA-C] documented in this encounter Plan of Treatment Not on file documented as of this encounter Visit Diagnoses Not on filedocumented in this encounter Care Teams Sap Bw Architect Relationship Specialty Start Date End Date Mandie Johnston MD PCP - General Internal Medicine 11/17/1803/08 [facility], Pcp PCP - General Internal Medicine 03/09/23 documented as of this encounter
--- OUTSIDE RECORDS SUMMARY | 2025-01-27 15:40 | XMS_ITS | Encounter Summary ---
Author Organization [facility] Address [address] [place] [address] Care Team Providers Care Buttonhole Machine Operator Name Role Phone Mandie Johnston MD Primary Care Provider [facility], Pcp Primary Care Provider [facility] Encounter Details Date Type Department Care Team Description 09/22/2021 Pt. Non Urgent Medical Question Adult Medicine A - [address] [address] Mandie Johnston MD Social History Tobacco Use [...] Telephone Encounter - Bhavya Kang M.A. - 09/23/2021 8:52 AM ESTFrom: Sarah Kemp To: Jane Mckenzie Sent: 09/22/2021 4:13 PM EST Subject: my health Dr. Mckenzie in Jul. I had a fungal infection in my right ear and went to Dr. Cardoza for it. I also went to Dr. 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 They said that the wanted to do varicose vein stripping and Phlebectomy. So now I am going to Dr. Portillo in [facility]. Dr. portillo to ld me for now to wear compassion knee highs . I just wanted to let you know what is going on. Dr. Stephenson wants me to start Reclase soon for my osteoprosis. Oct.11 I am going to have my cataracts check ,because my glaucoma pressure is high. I take two eye drops for that now. Is there anyway I can make an appt to see you or Filomena Naik to talk to you about these problems? I also wanted to talk to you about being so tired and exhausted all the time andcan not stay awake. Thank you Sarah Kemp documented in this encounter Plan of Treatment Not on file documented as of this encounter Visit Diagnoses Not on filedocumented in this encounter Care Teams Buttonhole Machine Operator Relationship Specialty Start Date End Date Mandie Johnston MD PCP - General Internal Medicine 11/17/1803/08 [facility], Pcp PCP - General Internal Medicine 03/09/23 documented as of this encounter
--- OUTSIDE RECORDS SUMMARY | 2025-01-27 15:40 | XMS_ITS | Encounter Summary ---
Author Organization [facility] Address [address] [place] [address] Care Team Providers Care Wash Oil Pump Operator Name Role Phone Mandie Johnston MD Primary Care Provider [facility], Pcp Primary Care Provider [facility] e Encounter Details Date Type Department Care Team Description 08/10/2021 Pt. Non Urgent Medical Question Adult Medicine B - [address] [address] Filomena Naik PA-C [address] [place] [address] Social History Tobacco Use Types Packs/Day Years Used Date Smoking Tobacco: Former Cigarettes Q uit: 1989 Smokeless Tobacco: Never Alcohol Use Standard Drinks/Week Comments No 0 (1 standard drink = 0.6 oz pur e alcohol) Sex Assigned at Date Recorded Female 02/12/2021 1:04 PM E DT COVID-19 Exposure Response Date Recorded In the last month, have you been in contact with someone who was confirmed or suspected to have Coronavirus / COVID-19? No / Unsure 07/25/2021 10:57 AM EDT documented as of this encounter Miscellaneous Notes * Telephone Encounter - Magaly Long M.A. - 08/12/2021 9:29 AM EDTFrom: Sarah Kemp To: Carlo Naik Sent: 08/10/2021 12:07 PM EDT Subject: Flu Shot Filomena, I got the Inactivated Influenza Vaccine today at [facility] on 08/10/2021. I will get the covid -19 booster next month. Sarah Kemp documented in this encounter Plan of Treatment Not on file documented as of this encounter Visit Diagnoses Not on filedocumented in this encounter Care Teams Wash Oil Pump Operator Relationship Specialty Start Date End Date Mandie Johnston MD PCP - General Internal Medicine 11/17/1803/08 [facility], Pcp PCP - General Internal Medicine 03/09/23 documented as of this encounter
--- OUTSIDE RECORDS SUMMARY | 2025-01-27 15:40 | XMS_ITS | Encounter Summary ---
Author Organization [facility] Address [address] [place] [address] Care Team Providers Care Tax Manager Cpa Name Role Phone Mandie Johnston MD Primary Care Provider [facility], Pcp Primary Care Provider [facility] e Encounter Details Date Type Department Care Team Description 10/08/2019 Refill Adult Medicine B - [address] [address] Mandie Johnston MD Social History Tobacco Use Types Packs/Day Years Used Date Smoking Tobacco: Former Cigarettes Q uit: 1989 Smokeless Tobacco: Never Alcohol Use Standard Drinks/Week Comments No 0 (1 standard drink = 0.6 oz pur e alcohol) Sex Assigned at Date Recorded Female 02/12/2021 1:04 PM E DT documented as of this encounter Miscellaneous Notes * Telephone Encounter - Mandie Mckenzie MD - 10/10/2019 11:51 AM EST Signed, thank you * Telephone Encounter - India Romero - 10/10/2019 11:27 AM EST Last office visit: 09.07.2019 Lab Results Component Value Date NA 143 09/07/2019 K 4.4 09/07/2019 CO2 30 09/07/2019 CL 107 09/07/2019 BUN 11 09/07/2019 CREAT 0.83 09/07/2019 GLU 75 09/07/2019 CA 10.1 09/07/2019 GFR > 60 09/07/2019 Lab Results Component Value Date 25OHD 70 06/01/2019 documented in this encounter Plan of Treatment Not on file documented as of this encounter Visit Diagnoses Not on filedocumented in this encounter Care Teams Tax Manager Cpa Relationship Specialty Start Date End Date Mandie Johnston MD PCP - General Internal Medicine 11/17/1803/08 [facility], Pcp PCP - General Internal Medicine 03/09/23 documented as of this encounter
--- OUTSIDE RECORDS SUMMARY | 2025-01-27 15:40 | XMS_ITS | Encounter Summary ---
Author Organization [facility] Address [address] [place] [address] Care Team Providers Care Evs Attendant Name Role Phone Mandie Johnston MD Primary Care Provider [facility], Pcp Primary [facility] Encounter Details Date Type Department Care Team Description 06/17/2021 Mds Nurse Report Medical Records [address] [place] [address] Marshall Stephenson MD Social History Tobacco Use Types Packs/Day [...] on filedocumented in this encounter Care Teams Evs Attendant Relationship Specialty Start Date End Date Mandie Johnston MD PCP - General Internal Medicine 11/17/1803/08 [facility], Pcp PCP - General Internal Medicine 03/09/23 documented as of this encounter
--- OUTSIDE RECORDS SUMMARY | 2025-01-27 15:40 | XMS_ITS | Encounter Summary ---
Author Organization [facility] Address [address] [place] [address] Care Team Providers Care Cattle Dipper Name Role Phone Mandie Johnston MD Primary Care Provider [facility], Pcp Primary Care Provider Unavailabl e Reason for Visit * Reason Onset Date Comments DME Request 11/25/2019 [employer] Encounter Details Date Type Department Care Team Description 11/25/2019 Telephone Adult Medicine B - [address] [address] Mandie Johnston MD DME Request ([employer] [place]) Social History Tobacco Use Types Packs/Day Years Used Date Smoking Tobacco: Former Cigarettes Q uit: 1989 Smokeless Tobacco: Never Alcohol Use Standard Drinks/Week Comments No 0 (1 standard drink = 0.6 oz pur e alcohol) Sex Assigned at Date Recorded Female 02/12/2021 1:04 PM E DT documented as of this encounter Miscellaneous Notes * Telephone Encounter - Estefania Mullen M.A. - 11/25/2019 3:22 PM EST Dme sent to to sign please return to Estefania * Telephone Encounter - Fior Gardiner - 11/25/2019 11:26 AM EST Faxed order received from [employer] general rx and medical necessity form, review, signand date. Please fax back. Placed in Mandie Mckenzie's bin. documented in this encounter Plan of Treatment Not on file documented as of this encounter Visit Diagnoses Not on filedocumented in this encounter Care Teams Cattle Dipper Relationship Specialty Start Date End Date Mandie Johnston MD PCP - General Internal Medicine 11/17/1803/08 [facility], Pcp PCP - General Internal Medicine 03/09/23 documented as of this encounter
--- OUTSIDE RECORDS SUMMARY | 2025-01-27 15:40 | XMS_ITS | Encounter Summary ---
Author Organization [facility] Address [address] [place] [address] Care Team Providers Care Plasma Specialist Name Role Phone Mandie Johnston MD Primary Care Provider [facility], Pcp Primary Care Provider [facility] Encounter Details Date Type Department Care Team Description 09/19/2019 [facility] Adult Medicine B - [address] [address] Mandie Johnston MD Social History Tobacco Use [...] Telephone Encounter - Mandie Mckenzie MD - 09/20/2019 11:03 AM EST Signed, thank you * Telephone Encounter - Najma Ramirez R.N. - 09/20/2019 8:33 AM EST Last appt 09/07/19 documented in this encounter Plan of Treatment Not on file documented as of this encounter Visit Diagnoses Not on filedocumented in this encounter Care Teams Plasma Specialist Relationship Specialty Start Date End Date Mandie Johnston MD PCP - General Internal Medicine 11/17/1803/08 [facility], Pcp PCP - General Internal Medicine 03/09/23 documented as of this encounter
--- OUTSIDE RECORDS SUMMARY | 2025-01-27 15:40 | XMS_ITS | Encounter Summary ---
Author Organization [facility] Address [address] [place] [address] Care Team Providers Care Mirror Framer Name Role Phone Mandie Johnston MD Primary Care Provider [facility] Pcp Primary Care Provider [facility] Encounter Details Date Type Department Care Team Description 10/16/2021 Pt. Non Urgent Medical Question Adult Medicine B - [address] [address] Filomena Naik PA-C [address] [place] [address] Social History Tobacco Use Types Packs/Day Years Used Date Smoking Tobacco: Former Cigarettes Q uit: 1989 Smokeless Tobacco: Never Alcohol Use Standard Drinks/Week Comments No 0 (1 standard drink = 0.6 oz pur e alcohol) Sex Assigned at Date Recorded Female 02/12/2021 1:04 PM E DT documented as of this encounter Miscellaneous Notes * Telephone Encounter - Elizabeth Sena M.A. - 10/16/2021 4:10 PM ESTFrom: Sarah Kemp To: Carlo Naik Sent: 10/16/2021 4:07 PM EST Subject: Getting Eye Surgery [place] I am sorry but my old computer and I didn't get the message you wrote. On I hadto go to my eye doctor because of my eye pressure and found out that I am going to have eye surgeryon for to remove my cataract and out in a stint in my right eye. They are gonna send you or Dr. Mckenzie a paper for yo u to sign off for my surgery. you can either text me @ [phone] [email or web address] @ [email or web address] what ever is easier for you. Again I am deeply sorry for missing theappt. that I had with you. Please forgive me again for missing that appt. on Oct.11. I can never get thru on the phone when I call. Sarah Kemp. documented in this encounter Plan of Treatment Not on file documented as of this encounter Visit Diagnoses Not on filedocumented in this encounter Care Teams Mirror Framer Relationship Specialty Start Date End Date Mandie Johnston MD PCP - General Internal Medicine 11/17/1803/08 [facility], Pcp PCP - General Internal Medicine 03/09/23 documented as of this encounter
--- OUTSIDE RECORDS SUMMARY | 2025-01-27 15:40 | XMS_ITS | Encounter Summary ---
Author Organization [facility] Address [address] [place] [address] Care Team Providers Care Mental Health Aides Teacher Name Role Phone Mandie Johnston MD Primary Care Provider [facility], Pcp [facility] Reason for Referral * EXTERNAL (Routine) - Authorized/Booked Specialty Diagnoses / Procedures Referred By Contac t Referred To Contact Home Health Care / Home care Procedures REFERRAL TO HOME CARE Mandie Johnston MD [address] [place] [address] Home, [facility] [place] [facility] [place] [address] Referral ID Status Reason Start Date Expiration Date V isits Requested Visits Authorized SEE LETTERS Authorized/ Booked 11/16/2019 02/15/2020 1 1 Encounter Details Date Type Department Care Team Description 11/16/2019 Orders Only Adult Medicine B - [address] [address] Mandie Johnston MD Social History Tobacco Use [...] on filedocumented in this encounter Care Teams Mental Health Aides Teacher Relationship Specialty Start Date End Date Mandie Johnston MD PCP - General Internal Medicine 11/17/1803/08 [facility], Pcp PCP - General Internal Medicine 03/09/23 documented as of this encounter
--- OUTSIDE RECORDS SUMMARY | 2025-01-27 15:40 | XMS_ITS | Encounter Summary ---
Author Organization [facility] Address [address] [place] [address] Care Team Providers Care Barytes Grinder Name Role Phone Mandie Johnston MD Primary Care Provider [facility] Pcp Primary Care Provider [facility] e Encounter Details Date Type Department Care Team Description 07/27/2021 Pt. Non Urgent Medical Question Adult Medicine B - [address] [address] Filomena Naik PA-C [address] [place] [address] Social History Tobacco Use Types Packs/Day Years [...] encounter Miscellaneous Notes * Telephone Encounter - Najma Ramirez R.N. - 07/29/2021 7:50 AM EDTFrom: Sarah Kemp To: Carlo Naik Sent: 07/27/2021 2:21 AM EDT Subject: should I come in For a check up? Filomena mckinney two weeks when I went to the doctor form my veins in my leg my blood pressure was 140, also yesterday I went to [facility] for ear infection and my blood pressure was around 140. My daughter took my blood pressure today and it was 140. I don't understand why it goy that high. Should I come in and have it check? Please let me know if I should or is there anything I can do to get it down. documented in this encounter Plan of Treatment Not on file documented as of this encounter Visit Diagnoses Not on filedocumented in this encounter Care Teams Barytes Grinder Relationship Specialty Start Date End Date Mandie Johnston MD PCP - General Internal Medicine 11/17/1803/08 [facility], Pcp PCP - General Internal Medicine 03/09/23 documented as of this encounter
--- OUTSIDE RECORDS SUMMARY | 2025-01-27 15:40 | XMS_ITS | Encounter Summary ---
Author Organization [facility] Address [address] [place] [address] Care Team Providers Care Weaver Narrow Fabrics Name Role Phone Mandie Johnston MD Primary Care Provider [facility], Pcp Primary Care Provider [facility] Encounter Details Date Type Department Care Team Description 12/03/2021 Pt. Non Urgent Medical Question Adult Medicine A - [address] [address] Mandie Johnston MD Social History Tobacco Use [...] have Coronavirus / COVID-19? No / Unsure 12/02/2021 12:48 PM EST documented as of this encounter Miscellaneous Notes * Telephone Encounter - Elizabeth Sena M.A. - 12/03/2021 10:22 AM ESTFrom: Sarah Kemp To: Jane Mckenzie Sent: 12/03/2021 12:13 AM EST Subject: About my blood pressure Dr. Mckenzie will you please send in a order for me to get a potassium check please. I need to have this done just for my own pace of mind. I am not taking any more eye drops and I stop taking the antibiotics, but my blood pressure keeps going up and down. I still have headaches and I get nausea on and off. and needles and pins al l over my body on ad off. I just want to know my potassium is ok. Last time you took it was in and this will be weeks. I would appreciate it very much. I just need to know. Thank You Sarah Kemp documented in this encounter Plan of Treatment Not on file documented as of this encounter Visit Diagnoses Not on filedocumented in this encounter Care Teams Weaver [employer] Relationship Specialty Start Date End Date Mandie Johnston MD PCP - General Internal Medicine 11/17/1803/08 [facility], Pcp PCP - General Internal Medicine 03/09/23 documented as of this encounter
--- OUTSIDE RECORDS SUMMARY | 2025-01-27 15:40 | XMS_ITS | Encounter Summary ---
Author Organization [facility] Address [address] [place] [address] Care Team Providers Care Decorating Instructor Name Role Phone Mandie Johnston MD Primary Care Provider [facility], Pcp Primary Care Provider [facility] e Reason for Visit * Reason Comments E-prescribe Rx Request Encounter Details Date Type Department Care Team Description 08/22/2021 Refill Adult Medicine B - [address] [address] Mandie Johnston MD E-prescribe Rx Request Social History Tobacco Use Types Packs/Day Years [...] encounter Miscellaneous Notes * Telephone Encounter - Rachel Romero - 08/22/2021 1:09 PM EDT Date of last office visit 05/03/21, no pended appointment. Lab Results Component Value Date NA 142 05/08/2021 K 3.8 05/08/2021 CO2 29 05/08/2021 CL 107 05/08/2021 BUN 15 05/08/2021 CREAT 0.71 05/08/2021 GLU 75 05/08/2021 CA 9.5 05/08/2021 GFR > 60 05/08/2021 * Telephone Encounter - Eneida Blandon - 08/22/2021 12:20 PM EDT Patient would like script to be: E-PRESCRIBED/FAXED TO PHARMACY WHEN WAS THE PATIENT'S LAST APPOINTMENT IN ADULT MEDICINE? 05.03.21 WHEN WAS THE LAST TIME THE PATIENT SAW THEIR PCP? Same as above Does patient have an upcoming appointment? NO (THE MEDICATION REQUESTED IS ON THE MED LIST ABOVE) All of the medications requested were on the CURRENT MEDS list Did you check the Pharmacy information above?: YES Patient wants: 14 Packs Is this a mail order prescription request ? NO If the refill is from a FAXED refill request what is the RX # listed on the fax? N/A Patients current insurance carrier is: [place] / [place] / Product Type: MED[place]ARE [id number] documented in this encounter Plan of Treatment Not on file documented as of this encounter Visit Diagnoses Not on filedocumented in this encounter Care Teams Decorating Instructor Relationship Specialty Start Date End Date Mandie Johnston MD PCP - General Internal Medicine 11/17/1803/08 [facility], Pcp PCP - General Internal Medicine 03/09/23 documented as of this encounter
--- OUTSIDE RECORDS SUMMARY | 2025-01-27 15:40 | XMS_ITS | Data Portability ---
Author Organization [place] - [facility], Allergy Address [address] [address] Care Team Providers Care Head Turning Machine Operator Name Role Phone FLOYDMARS SIM Primary [...] schedule hearing exam in the near future. [email or web address] Not available 08/24/2024 14:23:03 Plan of Treatment Reminders Order Date Submit Date Provider Last Modified By Organization Details Last Modified Time Details Appointments None recorded. Lab None recorded. Referral None recorded. Procedures None recorded. Surgeries None recorded. Imaging None recorded. Medication Orders Ciprodex 0.3 %-0.1 % ear drops,susp ension 2023 024 [id number], [address] [facility], [place], [address], 13:14:11 Patient TargetsNo targets recorded. Patient InstructionsNo [...] Recorded Time Otorrhea of bilatera l ears 03492519533 93203 Active 2021 Otorrhea , bilatera l; Note: Date Diagnose d: 05/29/2022 10:56 AM (H92.13) Not Available [facility] 4 02:48:15 Bleeding from nose 969444533 Active 2022 Epistaxi s; Note: Date Diagnose d: 3 11:58 AM (R04.0) Not Available [facility] 4 02:48:21 Itching of skin 319416364 Active 2019 Pruritus , unspecif ied; Note: Date Diagnose d: 02/02/2020 10:14 AM (L29.9) Not Available [facility] 4 02:48:16 Dysphoni a 80652755 Active 2020 Hoarsene ss; Note: Date Diagnose d: 03/29/2021 11:16 AM (R49.0) Not Available [facility] 4 02:48:21 Xerostom ia 33192852 Active 2021 Dry mouth, unspecif ied; Note: Date Diagnose d: 2 11:57 AM (R68.2) Not Available [facility] 4 02:48:22 Dizzines s and giddines s 558948867 Active 2022 Dizzines s and giddines s; Note: Date Diagnose d: 3 2:35 PM (R42) Not Available [facility] 4 02:48:16 Posterio r rhinorrh ea 91214465 Active 2022 Postnasa l drip; Note: Date Diagnose d: 3 11:58 AM (R09.82) Not Available [facility] 4 02:48:17 Sensorin eural hearing loss of bilatera l ears 555314419 Active 2019 Sensorin eural hearing loss, bilatera l; Note: Date Diagnose d: 06/27/2020 11:47 AM (H90.3) Not Available [facility] 4 02:48:18 Otorrhea of right ear 77926194607 90734 Active 05/23/ 2023 Otorrhea , right ear; Note: Date Diagnose d: 3 4:03 PM (H92.11) Not Available [facility] 4 02:48:19 Pain of left temporom andibula r joint 91057298102 903731 Active 2023 Arthralg ia of left temporom andibula r joint; Note: Date Diagnose d: 10/30/2023 1:26 PM (M26.622 ) Not Available [facility] 4 02:48:18 Chronic mycotic otitis externa 927972104 Active 2021 Chronic mycotic otitis externa; Note: Date Diagnose d: 2 11:18 AM (380.15) Not Available [facility] 4 02:48:14 Impacted cerumen in left ear 41678136533 26042 Active 2022 Impacted cerumen, left ear; Note: Date Diagnose d: 3 1:27 PM (H61.22) Impact ed cerumen, left ear; Note: Date Diagnose d: 08/11/20 22 1:12 PM (H61.22) ; Start Date : 08/11/20 Not Available [facility] 4 02:48:20 Gastroes ophageal reflux disease without esophagi tis 022716478 Active 2021 Gastro-e sophagea l reflux disease without esophagi tis; Note: Date Diagnose d: 2 11:57 AM (K21.9) Not Available [facility] 4 02:48:22 Diffuse otitis externa 38061171 Completed 202005/27/2024 Diffuse otitis externa, right ear; Note: Date Diagnose d: 1 8:32 AM (H60.311 ) Not Available [facility] 4 02:48:14 Candidal otitis externa 42117552 Active 2021 Candidal otitis externa; Location : right No te: Date Diagnose d: 08/11/20 22 1:12 PM (B37.84) Not Available [facility] 4 02:48:23 Bilatera l diffuse otitis externa 83758089270 16185 Completed 202105/27/2024 Diffuse otitis externa, bilatera l; Note: Date Diagnose d: 2 11:19 AM (H60.313 ) Not Available [facility] 4 02:48:19 Referred otalgia 45057767 Active 2020 Otalgia secondar y to TMJ; Note: Date Diagnose d: 1 3:14 PM (388.72) Not Available [facility] 4 02:48:23 Dysphagi a 94284924 Active 2021 Dysphagi a, unspecif ied; Note: Date Diagnose d: 02/27/2022 1:39 PM (R13.10) Not Available [facility] 4 02:48:18 Otalgia of right ear 6111637075 Active 2022 Otalgia, right ear; Note: Date Diagnose d: 3 11:58 AM (H92.01) Not Available [facility] 4 02:48:17 Eustachi an tube disorder 08421940 Active 2019 Other specifie d disorder s of Eustachi an tube, unspecif ied ear; Note: Date Diagnose d: 02/02/2020 10:14 AM (H69.80) Not Available [facility] 4 02:48:19 Superfic ial mycosis 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 Active 2021 Other specifie d superfic ial mycoses; Note: Date Diagnose d: 2 11:19 AM (B36.8) Not Available [facility] 4 02:48:14 Otalgia of left ear 8518611698 Active 2019 Otalgia, left ear; Note: Date Diagnose d: 02/02/2020 10:13 AM (H92.02) Not Available [facility] 4 02:48:20 Impacted cerumen of bilatera l ears 18189369400 97239 Active 2020 Impacted cerumen, bilatera l; Note: Date Diagnose d: 03/29/2021 11:16 AM (H61.23) Not Available [facility] 4 02:48:20 Mixed conducti ve and sensorin eural hearing loss of right ear 69550894570 105 Active 2023 JENISE KNIGHT, AUD [address] [place],[address], [place], [place], [address] , [facility] - [facility] 4 12:20:06 Sensorin eural hearing loss 90402833 Active 2023 JENISE KNIGHT, AUD [address] [place],[address], [place], [place], [address] , [place] - [facility] 4 12:20:21 Arthralg ia of temporom andibula r joint 69986147 Active 2023 MARILYN ABDI PA-C [address] [facility] [place],[facility] [address], [place], [place], [address] , [facility] - [facility] 4 13:13:26 Acute otitis externa 24872325 Active 2023 MARIYLN ABDI PA-C 100 [facility] [address], [place], [place], [address] , [facility] - [facility] 4 13:13:31 Acute serous otitis media of bilatera l ears 14517857878 86236 Active 2023 Acute serous otitis media, bilatera l; Note: Date Diagnose d: 4 1:10 PM (H65.03) Not Available [facility] 4 02:48:15 Cough 35844457 Active 2023 Cough, unspecif ied; Note: Changed from R05 to R05.9 (12/18/19 24 5:00 PM) , Date Diagnose d: 4 1:10 PM (R05) Not Available [facility] 4 02:48:16 Acute maxillar y sinusiti s 98834122 Active 2023 Acute maxillar y sinusiti s, unspecif ied; Note: Date Diagnose d: 4 1:10 PM (J01.00) Not Available [facility] 4 02:48:21 Allergic rhinitis caused by pollen 00947527 Active 2023 Allergic rhinitis due to pollen; Note: Date Diagnose d: 4 3:06 PM (J30.1) Not Available [facility] 4 02:48:22 Bilatera l disorder of Eustachi an tubes 56874344629 75628 Active 2023 MARILYN ABDI PA-C [address] [facility] [place] [address], [place], [address] , [facility] - [facility] 4 14:24:03 Nasal congesti on 64247320 Active 2023 MARILYN ABDI PA-C [address] [facility] [place] [address], [place], [address] , [facility] - [facility] 14:24:07 Problem Notes None recorded. Procedures Surgical History Date Name Laterality Status Provider Name and Address Organization Details Recorded Time Cerumen removal without microscope bilat completed MARILYN ABDI PA-C [address] [facility] [place] [address], [place], [address], [facility] - [facility] 08/24/2024 14:22:06 Comp Audio with Tymps (16315 & 08442) completed SANDIP PROCTOR [address] [facility] [place] [address], [place], [address], [facility] - [facility] 04/11/2024 12:19:43 Imaging Results Imaging Date [...] Name and Address Organization Details Recorded Time 38054 meloxicam medicatio n other Not available Not available 03/08/2024 04047 RxNorm React ion: unkno wn, unspe cifie d;; Not Available [facility] 4 00:59:14 37223 estradiol medicatio n other Not available Not available 03/08/2024 4083 RxNorm React ion: unkno wn, unspe cifie d;; Not Available [facility] 4 00:59:15 57813 oxycodone medicatio n other Not available Not available 03/08/2024 7804 RxNorm React ion: unkno wn, unspe cifie d;; Not Available [facility] 4 00:59:16 07623 doxycycli ne Not available other Not available Not available 03/08/2024 3640 RxNorm React ion: unkno wn, unspe cifie d;; Not Available [facility] 4 00:59:17 82632 gabapenti n medicatio n other Not available Not available 03/08/2024 94481 RxNorm React ion: unkno wn, unspe cifie d;; Not Available [facility] 4 00:59:19 00010 Bactrim medicatio n other Not available Not available 03/08/2024 09241 9 RxNorm React ion: unkno wn, unspe cifie d;; Not Available [facility] 4 00:59:20 66165 amoxicill in medicatio n hives Not available Not available 03/08/2024 723 RxNorm React ion: skin rashe s, hives ;; Not Available [facility] 4 00:59:22 33183 azithromy char medicatio n other Not available Not available 03/08/2024 58328 RxNorm React ion: unkno wn, unspe cifie d;; Not Available [facility] 4 00:59:24 74256 Fosamax medicatio n other Not available Not available 03/08/2024 20440 5 RxNorm React ion: unkno wn, unspe cifie d;; Not Available [facility] 4 00:59:27 11486 oxybutyni n chloride Not available other Not available Not available 03/08/2024 07041 RxNorm React ion: unkno wn, unspe cifie d;; Not Available [facility] 4 00:59:30 79982 trazodone medicatio n other Not available Not available 03/08/2024 86962 RxNorm React ion: unkno wn, unspe cifie d;; Not Available [facility] 4 00:59:33 14422 Premarin medicatio n other Not available Not available 03/08/202404906 6 RxNorm React ion: unkno wn, unspe cifie d;; Not Available [facility] 4 00:59:36 59781 penicilli n V potassium medicatio n other Not available Not available 03/08/202428997 5 RxNorm React ion: unkno wn, unspe cifie d;; Not Available [facility] 4 00:59:41 49817 morphine medicatio n other Not available Not available 03/08/2024 7052 RxNorm React ion: unkno wn, unspe cifie d;; Not Available [facility] 4 00:59:45 62693 Actos medicatio n other Not available Not available 03/08/2024 26345 2 RxNorm React ion: unkno wn, unspe cifie d;; Karyn sears [place] - [facility] 4 11:48:39 34855 erythromy char ethylsucc inate medicatio n other Not available Not available 03/08/2024 4056 RxNorm React ion: unkno wn, unspe cifie d;; Not Available [facility] 4 00:59:54 Medications Name Sig Start Date Stop Date Status Note LastModified by Organization Details LastModified Time doxycycli ne hyclate 100 mg capsule TAKE ONE CAPSULE BY MOUTH TWICE A DAY FOR 10 DAYS 04/11 completed Not Available Not Available Not Available polyethyl rupesh glycol 3350 17 gram oral powder packet 11/28 completed Medicati on ID: 282930 B rand Name: polyethy carlton glycol 3350 [...] release 24 hr active Medicati on ID: 236061 B rand Name: metoprol ol succinat e Send Method: E-Prescr ibed Sub s Allowed: subs OK Medic ationGen ericName : metoprol ol succinat e Not Available Not Available Not Available clotrimaz ole-betam ethasone 1 %-0.05 % lotion Apply a small amount three times a day as directed 04/11 completed Medicati on ID: 739463 D uration Value: 14 Brand Name: clotrima zole-bet amethaso ne Send Method: E-Prescr ibed Sub s Allowed: subs OK Speci al Instruct ion: Apply with finger to ear canal skin. Me dication GenericN pushpa: clotrima zole-bet amethaso ne Medic ation ID: [id number] D uration Value: 14 Brand Name: clotrima [...] eye drops 08/11 completed Medicati on ID: 245555 B rand Name: ketorola c Send Method: [...] drops,sylvia pension 08/11 completed Medicati on ID: 734100 B rand Name: predniso lone acetate Send [...] layed release 11/28 completed Medicati on ID: 860069 B rand Name: pantopra zole Sen d Method: E-Prescr ibed Sub s Allowed: subs OK Medic ationGen ericName : pantopra zole Not Available Not Available Not Available Cipro 500 mg tablet 1 tablet by mouth 04/11 completed Medicati on ID: 630481 D uration Value: 7 Prescri bed By Name: TAMAR Knight nd Name: Coco Sunshine nd Method: E-Prescr ibed Sub s Allowed: subs OK Medic ationGen ericName : Cipro Me dication ID: [id number] D uration Value: 7 Prescri bed By Name: TAMAR Knight nd Name: Coco Sunshine nd Method: E-Prescr ibed Sub s Allowed: subs OK Medic ationGen ericName : Cipro Not Available Not Available Not Available clotrimaz ole-betam ethasone 1 %-0.05 % topical cream Apply 1 a small amount twice a day 04/11 completed Medicati on ID: 524130 D uration Value: 14 Brand Name: clotrima zole-bet amethaso ne Send Method: E-Prescr ibed Sub s Allowed: subs OK Speci al Instruct ion: Apply with fingerti p to external ear BID x 2 weeks Me dication GenericN pushpa: clotrima zole-bet amethaso ne Medic ation ID: [id number] D uration Value: 14 Brand Name: clotrima [...] eye drops 08/11 completed Medicati on ID: 052514 B rand Name: brimonid rudi Send Method: E-Prescr ibed Sub s Allowed: subs OK Medic ationGen ericName : brimonid ine Not Available Not Available Not Available clotrimaz ole 1 % topical solution Apply 04/11 completed Medicati on ID: 213435 D uration Value: 14 Brand Name: clotrima zole Sen d Method: E-Prescr ibed Sub s Allowed: subs OK Speci al Instruct ion: 4 drops to the right ear BID x 2 weeks Me dication GenericN pushpa: clotrima zole Med ication ID: [id number] D uration Value: 14 Brand Name: clotrima zole Sen d Method: E-Prescr ibed Sub s Allowed: subs OK Speci al Instruct ion: 4 drops to the right ear BID x 2 weeks Me dication GenericN pushpa: clotrima zole Not Available Not Available Not Available betametha sone dipropion ate 0.05 % topical cream 1 a small amount 11/28 completed Medicati on ID: 135256 D uration Value: 14 Prescri bed By [...] elayed release 11/20 completed Medicati on ID: [id number] D uration Value: 30 Brand Name: omeprazo [...] mg tablet 11/20 completed Medicati on ID: 599425 D uration Value: 90 Brand Name: hydrochl [...] mg capsule 08/11 completed Medicati on ID: 112611 B rand Name: talhaoxpieter b Send Method: [...] to skin 11/28 completed Medicati on ID: 913678 D uration Value: 14 Prescri bed By [...] mg tablet 11/20 completed Medicati on ID: [id number] D uration Value: 90 Brand Name: naproxen Send Method: E-Prescr ibed Sub s Allowed: subs OK Speci al Instruct ion: TK 1 T PO BID Medi cationGe nericNam e: naproxen Not Available Not Available Not Available TobraDex 0.3 %-0.1 % eye drops,sylvia pension 08/09 completed Medicati on ID: [id number] D uration Value: 14 Prescri bed By Name: Filomena galvez MD Brand Name: TobraDex Send Method: E-Prescr ibed Sub s Allowed: subs OK Speci al Instruct ion: Instill 4 drops in the right ear BID for 14 days Med icationG enericNa me: TobraDex Not Available Not Available Not Available Mapap Arthritis Pain 650 mg tablet,ex tended release 11/28 completed Medicati on ID: 536898 D uration Value: 30 Brand Name: Mapap [...] 2 drop 04/11 completed Medicati on ID: [id number] D uration Value: 30 Brand Name: DermOtic Oil Send Method: E-Prescr ibed Sub s Allowed: subs OK Speci al Instruct ion: as needed for itching Medicati onGeneri cName: DermOtic Oil Medi cation ID: [id number] D uration Value: 30 Brand Name: DermOtic [...] mcg tablet 08/11 completed Medicati on ID: [id number] D uration Value: 90 Brand Name: Adults 50 Plus Sen d Method: E-Prescr ibed Sub s Allowed: subs OK Speci al Instruct ion: TK 1 T PO D Medica tionGene ricName: Adults 50 Plus Not Available Not Available Not Available Daily-Vit e (with folic acid) 400 mcg tablet 08/11 completed Medicati on ID: 356111 B rand Name: Daily-Vi te (with folic acid) Se nd Method: E-Prescr ibed Sub s Allowed: subs OK Medic ationGen ericName : Daily-Vi te (with folic acid) Not Available Not Available Not Available Astepro Allergy 205.5 mcg (0.15 %) nasal spray [place] 1 spray into both nostrils twice a day 01/10 completed Medicati on ID: [id number] P rescribe d By Name: Geoff Jones nd Name: Astepro Allergy Send Method: E-Prescr ibed Sub s Allowed: subs OK Medic ationGen ericName : [facility] Allergy Not Available Not Available Not Available Vitals Date Recorded Body height Body mass index (BMI) Body weight Provider Name and Address Organization Details Last Updated DateTime 04/11/2024 151.13 cm 27.8 kg/m2 05991.93 g Karyn Antonio [facility] 04/11/2024 11:48:18 Date Recorded Body height Body mass index (BMI) Body weight Provider Name and Address Organization Details Last Updated DateTime 08/24/2024 151.13 cm 27.8 kg/m2 60337.93 g Whitney Wood [facility] 08/24/2024 13:39:27 Social History None recorded. [...] Note [id number] AMBROCIO SANDOVAL MD [facility] [address] [place] [address] 04/11/2024 11:30:47 04/11/2024 12:33:15 Otalgia of right ear 0549913336 H92.01 Arthralgia of temporomandibular joint 04371812 M26.629 Acute otitis externa 302 93786 H60.509 4335 SANDIP PROCTOR [facility] [address] [place] [address] 04/11/2024 12:19:13 04/12/2024 12:46:23 Mixed conductive and sensorineural hearing loss of right ear 9357579204 9105 H90.A31 Sensorineu ral hearing loss 79817461 H90.A22 Audiologic al evaluation results: Right ear: [...] Cou ld not maintain a hermetic seal}} [id number] DMITRY WILBURN MD [facility] [address] [place] [address] 08/24/2024 13:15:02 08/24/2024 14:13:43 Bilateral disorder of Eustachian tubes 1151777547 933107 H69.93 Nasal congestion 2464977 0 R09.81 Health Concerns Section Related Observation LastModified by Organization Detai ls LastModified Time None Recorded Concern Status LastModified by Organization Details LastModified Time None Recorded Advance Directives Directive None Recorded Payers Encounter Date Sequence Insurance Name Policy Number Policy Ahuja Covered Member ID Ahuja Member ID Guarantor Name 04/11/2024 1 [place] [employer] Sarah Viridiana [id number] Sarah E Viridiana 04/11/2024 2 [place] [facility] Sarah Viridiana [id number] Sarah E Viridiana 04/11/2024 1 [place] [employer] Sarah Viridiana [id number] Sarah E Viridiana 04/11/2024 2 [place] [facility] Sarah Viridiana [id number] Sarah E Viridiana 08/24/2024 1 [place] [employer] Sarah Viridiana [id number] Sarah E Viridiana 08/24/2024 2 [place] [facility] Sarah Viridiana [id number] Sarah E Viridiana Notes Date Note Type [...] other side is unaffected. AMBROCIO ARITA MD [address] [place] [address], [place], [address], [facility] - [facility] 04/11/2024 16:59:59 08/24/2024 text/html 68-year-old gamal hernandez presents for cerumen. Has been having more postnasal drip and nasal congestion which she feels is affecting her ears causing ear fullness. Cannot use Flonase due to glaucoma. DMITRY WILBURN MD [address] [place] [address], [place], [address], [place] - [facility] 08/25/2024 08:54:43 OBGyn Episode No OBEpisode recorded.
--- OUTSIDE RECORDS SUMMARY | 2025-01-27 15:41 | XMS_ITS | Encounter Summary ---
Author Organization [facility] Address [address] [place] [address] Care Team Providers Care Computer Specialist Name Role Phone Mandie Johnston MD Primary Care Provider kolby Burgos, Pcp Primary Care Provider Unavailabl e Encounter Details Date Type Department Care Team Description 03/18/2019 Refill Gastroenterology - [place] [address] [place] [phone] Alverto Coffey MD [address] [place] [id number] Social History Tobacco Use Types Packs/Day Years Used Date Smoking Tobacco: Former Cigarettes Q uit: 1989 Smokeless Tobacco: Never Sex Assigned at Date Recorded Female 02/12/2021 1:04 PM E DT documented as of this encounter Plan of Treatment Not on file documented as of this encounter Visit Diagnoses Not on filedocumented in this encounter Care Teams Computer Specialist Relationship Specialty Start Date End Date Mandie Johnston MD PCP - General Internal Medicine 11/17/1803/08 Aubrey, Pcp PCP - General Internal Medicine 03/09/23 documented as of this encounter
--- OUTSIDE RECORDS SUMMARY | 2025-01-27 15:41 | XMS_ITS | Encounter Summary ---
Author Organization [facility] Address [address] [place] [address] Care Team Providers Care Medical Cost Consultant Name Role Phone Mandie Johnston MD Primary Care Provider [facility], Pcp [facility] Reason for Visit * Reason Onset Date Comments Testing 06/17/2019 Encounter Details Date Type Department Care Team Description 06/17/2019 Pt. Non Urgent Medical Question Adult Medicine B - [address] [address] Filomena Naik PA-C [address] [place] [id number] Social History Tobacco Use Types Packs/Day Years Used Date Smoking Tobacco: Former Cigarettes Q uit: 1989 Smokeless Tobacco: Never Sex Assigned at Date Recorded Female 02/12/2021 1:04 PM E DT documented as of this encounter Progress Notes * Emily Humphrey L.P.N. - 06/17/2019 1:47 PM EDTFrom: Sarah Kemp To: Filomena Naik PA-C Sent: 06/17/2019 1:45 PM EDT Subject: about Colonoscopy Filomena,I just wanted [facility] documented in this encounter Plan of Treatment Not on file documented as of this encounter Visit Diagnoses Not on filedocumented in this encounter Care Teams Medical Cost Consultant Relationship Specialty Start Date End Date Mandie Johnston MD PCP - General Internal Medicine 11/17/1803/08 [facility], Pcp PCP - General Internal Medicine 03/09/23 documented as of this encounter
--- OUTSIDE RECORDS SUMMARY | 2025-01-27 15:41 | XMS_ITS | Encounter Summary ---
Author Organization [facility] Address [address] [place] [address] Care Team Providers Care Custom Clothier Name Role Phone Mandie Johnston MD Primary Care Provider [facility], Pcp [facility] Encounter Details Date Type Department Care Team Description 03/29/2019 Orders Only Adult Medicine B - [address] [address] Mandie Johnston MD Vitamin D deficiency (Primary Dx) Social History Tobacco Use Types Packs/Day Years Used Date Smoking Tobacco: Former Cigarettes Q uit: 1989 Smokeless Tobacco: Never Sex Assigned at Date Recorded Female 02/12/2021 1:04 PM E DT documented as of this encounter Plan of Treatment Not on file documented as of this encounter Results * 25 HYDROXY INCLUDES FRACTIONS IF PERFORMED (06/01/2019 11:12 AM EDT) VITAMIN D, 25-HYDROXY 70 30 - 80 ng/mL 06/01/2019 4:18 PM EDT [email or web address] 06/01/2019 11:1 2 AM EDT 06/01/2019 11:12 AM EDT Mandie Mckenzie MD LAB Spreedly documented in this encounter Visit Diagnoses Diagnosis Vitamin D deficiency- Primary Unspecified vitamin D deficiency documented in this encounter Care Teams Custom Clothier Relationship Specialty Start Date End Date Mandie Johnston MD PCP - General Internal Medicine 11/17/1803/08 [facility], Pcp PCP - General Internal Medicine 03/09/23 documented as of this encounter
--- OUTSIDE RECORDS SUMMARY | 2025-01-27 15:41 | XMS_ITS | Encounter Summary ---
Author Organization [facility] Address [address] [place] [address] Care Team Providers Care Channel Marketing Specialist Name Role Phone Mandie Johnston MD Primary Care Provider [facility], Pcp Primary Care Provider Unavailabl e Encounter Details Date Type Department Care Team Description 11/30/2018 Release of Information Medical Records [address] [place] [id number] Abstract, Provider Social History Tobacco Use Types Packs/Day Years Used Date Smoking Tobacco: Former Cigarettes Q uit: 1989 Smokeless Tobacco: Former Sex Assigned at Date Recorded Female 02/12/2021 1:04 PM E DT documented as of this encounter Plan of Treatment Not on file documented as of this encounter Visit Diagnoses Not on filedocumented in this encounter Care Teams Channel Marketing Specialist Relationship Specialty Start Date End Date Mandie Johnston MD PCP - General Internal Medicine 11/17/1803/08 [facility], Pcp PCP - General Internal Medicine 03/09/23 documented as of this encounter
--- OUTSIDE RECORDS SUMMARY | 2025-01-27 15:41 | XMS_ITS | Encounter Summary ---
Author Organization [facility] Address [address] [place] [address] Care Team Providers Care Human Services Program Specialist Name Role Phone Mandie Johnston MD Primary Care Provider [facility], Pcp Primary Care Provider [facility] Encounter Details Date Type Department Care Team Description 05/29/2021 Orders Only Gastroenterology - [place] [address] [place] [id number] Shaka Brown MD [address] [place] [address] Early satiety Social History Tobacco Use Types Packs/Day Years [...] have Coronavirus / COVID-19? No / Unsure 05/08/2021 3:43 PM EDT documented as of this encounter Plan of Treatment Not on file documented as of this encounter Procedures Procedure Name Priority Date/Time Associated Diagnosis Comments NUCLEAR EXAM OF STOMACH EMPTYING Routine 05/29/2021 Early satiety documented in this encounter Results * NUCLEAR EXAM OF STOMACH EMPTYING (05/29/2021) Shaka Brown MD NUCLEAR documented in this encounter Visit Diagnoses Diagnosis Early satiety documented in this encounter Care Teams Human Services Program Specialist Relationship Specialty Start Date End Date Mandie Johnston MD PCP - General Internal Medicine 11/17/1803/08 [facility], Pcp PCP - General Internal Medicine 03/09/23 documented as of this encounter
--- OUTSIDE RECORDS SUMMARY | 2025-01-27 15:41 | XMS_ITS | Clinical Summary ---
[facility] Address [address] [place] [address] Care Team Providers Care Pearl Cutter Name Role Phone Mandie Mckenzie MD Primary Care Provider [phone] Surgical History Surgery Date Site/Laterality Comments BREAST BIOPSY Bilateral PROCEDURE: BX BREAST; PERC NEEDLE CORE W/IMAG GUID; COMMENT: 2 on left breast 1 left side neg BREAST SURGERY PROCEDURE: KS UNLISTED PROCEDURE BREAST; COMMENT: bilateral breast reduction x 2 1984 &2006 OTHER SURGICAL HISTORY 07/18/2015 Right PROCEDURE: KS EXCISION NAIL MATRIX PERMANENT REMOVAL; COMMENT: partial matrixectomy by Dr. Brandt OTHER SURGICAL HISTORY 07/24/2017 Left PROCEDURE: KS EXCISION NAIL MATRIX PERMANENT REMOVAL; COMMENT: partial matrixectomy medial and lateral borders by Dr. Galo OTHER SURGICAL HISTORY 07/24/2017 Left PROCEDURE: KS EXCISION NAIL MATRIX PERMANENT REMOVAL; COMMENT: partial [...] (Bone Density Screening) 06/20/2029 06/20/2019 RSV Immunization Adult Patients (1 - 1-dose 75+ series) 2029 Zoster [...] should be classified as having osteoporosis. The [facility] Department of Internal Medicine recommends using National [...] Kemp should beclassified as having osteoporosis. The [facility] Department of Internal Medicine recommendsusing National Osteoporosis [...] of fracture risk by FRAX. us Filomena ARRIAGA IMG DXA PROCEDURES Final Resu lt * [...] Recently Relevant to Health Maintenance Care Teams Pearl Cutter Relationship Specialty Start Date End Date Mandie Mckenzie MD PCP - General Internal Medicine 11/17/18
--- OUTSIDE RECORDS SUMMARY | 2025-01-27 15:41 | XMS_ITS | Encounter Summary ---
Author Organization [facility] Address [address] [place] [address] Care Team Providers Care Lithograph Printer Name Role Phone Mandie Johnston MD Primary Care Provider [facility], Pcp Primary [facility] Encounter Details Date Type Department Care Team Description 02/23/2021 Refill Adult Medicine B - [address] [address] Chacha Mendoza PA-C [address] [place] [id number] Social History Tobacco Use Types Packs/Day Years [...] have Coronavirus / COVID-19? No / Unsure 02/26/2021 1:49 PM EDT documented as of this encounter Plan of Treatment Not on file documented as of this encounter Visit Diagnoses Not on filedocumented in this encounter Care Teams Lithograph Printer Relationship Specialty Start Date End Date Mandie Johnston MD PCP - General Internal Medicine 11/17/1803/08 [facility], Pcp PCP - General Internal Medicine 03/09/23 documented as of this encounter
--- OUTSIDE RECORDS SUMMARY | 2025-01-27 15:41 | XMS_ITS | Encounter Summary ---
Author Organization [facility] Address [address] [place] [address] Care Team Providers Care Process Checker Name Role Phone Mandie Johnston MD Primary Care Provider [facility], Pcp Primary Care Provider [facility] e Encounter Details Date Type Department Care Team Description [facility] [address] [place] [id number] Md Adelia Social History Tobacco Use Types Packs/Day Years [...] have Coronavirus / COVID-19? No / Unsure 01/08/2021 9:58 AM EDT documented as of this encounter Plan of Treatment Not on file documented as of this encounter Visit Diagnoses Not on filedocumented in this encounter Care Teams Process Checker Relationship Specialty Start Date End Date Mandie Johnston MD PCP - General Internal Medicine 11/17/1803/08 [facility], Pcp PCP - General Internal Medicine 03/09/23 documented as of this encounter
--- OUTSIDE RECORDS SUMMARY | 2025-01-27 15:41 | XMS_ITS | Encounter Summary ---
Author Organization [facility] Address [address] [place] [address] Care Team Providers Care Diet Consultant Name Role Phone Mandie Johnston MD Primary Care Provider [facility], Pcp Primary [facility] Reason for Visit * Reason Comments E-prescribe Rx Request Encounter Details Date Type Department Care Team Description 03/17/2019 Refill Adult Medicine B - [address] [address] Mandie Johnston MD E-prescribe Rx Request Social History Tobacco Use Types Packs/Day Years Used Date Smoking Tobacco: Former Cigarettes Q uit: 1989 Smokeless Tobacco: Never Sex Assigned at Date Recorded Female 02/12/2021 1:04 PM E DT documented as of this encounter Miscellaneous Notes * Telephone Encounter - Mandie Mckenzie MD - 03/17/2019 11:15 AM EDT Signed, thank you * Telephone Encounter - India Romero - 03/17/2019 9:24 AM EDT Last office visit: 02.26.2019 Lab Results Component Value Date NA 142 01/04/2019 K 3.9 01/04/2019 CO2 29 01/04/2019 CL 107 01/04/2019 BUN 16 01/04/2019 CREAT 0.81 01/04/2019 GLU 105 01/04/2019 CA 9.0 01/04/2019 GFR > 60 01/04/2019 * Telephone Encounter - Urszula Ftio - 03/17/2019 8:19 AM EDT Patient would like script to be: E-PRESCRIBED/FAXED TO PHARMACY WHEN WAS THE PATIENT'S LAST APPOINTMENT IN ADULT MEDICINE? WHEN WAS THE LAST TIME THE PATIENT SAW THEIR PCP? Same as above Does patient have an upcoming appointment? Yes 03/29/19 (THE MEDICATION REQUESTED IS ON THE MED LIST ABOVE) All of the medications requested were on the CURRENT MEDS list Did you check the Pharmacy information above?: YES Patient wants: 30 -day supply Is this a mail order prescription request ? NO If the refill is from a FAXED refill request what is the RX # listed on the fax? N/A Patients current insurance carrier is: [facility] / Plan: [facility] / Product Type: HMO [id number] documented in this encounter Plan of Treatment Not on file documented as of this encounter Visit Diagnoses Not on filedocumented in this encounter Care Teams Diet Consultant Relationship Specialty Start Date End Date Mandie Johnston MD PCP - General Internal Medicine 11/17/1803/08 [facility], Pcp PCP - General Internal Medicine 03/09/23 documented as of this encounter
--- OUTSIDE RECORDS SUMMARY | 2025-01-27 15:41 | XMS_ITS | Continuity of Care Document ---
Author Organization [facility] Address [address] [place] [address]- Care Team Providers Care Game Trapper Name Role Phone Lily SALDANA, [id number] Date(s): 01/17/25 - 01/24/[address] [address] Encounter Diagnosis Afib(Discharge Diagnosis) - 01/17/25 Constipation(Discharge Diagnosis) - 01/17/25 Fibromyalgia(Discharge Diagnosis) - 01/17/25 MDD (major depressive disorder), recurrent episode, moderate(Discharge Diagnosis) - 01/17/25 SHAHLA (generalized anxiety disorder)(Discharge Diagnosis) - 01/17/25 SOUMYA on CPAP(Discharge Diagnosis) - 01/17/25 Osteoarthritis of both knees(Discharge Diagnosis) - 01/17/25 Hyperlipidemia(Discharge Diagnosis) - 01/17/25 Prediabetes(Discharge Diagnosis) - 01/17/25 Attending Physician: Lily SALDANA [facility] Encounter Type: Office Visit Allergies, Adverse Reactions, Alerts Substance [...] A-preF B, recombinant 1 09/25/23 Given SARS-CoV-2(COVID-19)mRNA-LNP vac([id number]) 09/15/23 Recorded influenza virus vaccine, inactivated 2 [...] influenza virus vaccine, inactivated 11/20/10 Olaf rded [id number] 12y+ bivalent booster vax 08/23/22 Recorded SARS-CoV-2 [...] Vaccine (oldterm) 4 10/07/07 Given 1Result Comment: [facility] [id number] 2Result Comment: [facility]: [id number] 3Result Comment: [09/06/2018] DAYANA PRESERVATIVE FREE 4Admin Note: San[employer]i pasteur ESHA given today date on ESHA 04/24/2007 Problem List Condition Confirmation Course Effective Dates Status H ealth Status Informant Allergic rhinitis Confirmed Active Afib Confirmed Active Chronic lower back pain Confirmed Active Constipation Confirmed Active Epigastric discomfort Confirmed Active Fibromyalgia Confirmed Active Chronic GERD [...] Confirmed Active 1repeat screening colonoscopy in 2022 Diagnosis Diagnosis Type Effective Dates Health Status Clinical Service Informant Afib Discharge Diagnosis 01/17/25 Constipation Discharge Diagnosis 01/17/25 Fibromyalgia Discharge Diagnosis 01/17/25 MDD (major depressive disorder), recurrent episode, moderate Discharge Diagnosis 01/17/25 SHAHLA (generalized anxiety disorder) Discharge Diagnosis 01/17/25 SOUMYA on CPAP Discharge Diagnosis 01/17/25 Osteoarthritis of both knees Discharge Diagnosis 01/17/25 Hyperlipidemia Discharge Diagnosis 01/17/25 Prediabetes Discharge Diagnosis 01/17/25 Vital Signs Most recent to oldest [Reference Range]: 1 Height 151 cm (01/17/25 12:18 PM) Weight 65.2 kg (01/17/25 12:18 PM) Oxygen Saturation [94-100 %] 100 % (01/17/25 12:18 PM) Pulse Rate [55-90 bpm] 75 bpm (01/17/25 12:18 PM) Body Mass Index [18.5-24.99 kg/m2] 28.6 kg/m2 *H* (01/17/25 12:18 PM) Blood Pressure [90-138/55-84 mm Hg] 119/ 69mm Hg (01/17/25 12:18 PM) Temperature [96.8-100.4 DegF] 97.3 DegF (01/17/25 12:18 PM) Mode of Delivery (Oxygen) Room air (01/17/25 12:18 PM) Blood pressure sites Arm, left (01/17/25 12:18 PM) Temperature Route Temporal (01/17/25 12:18 PM) Weight Obtained Via Standing scale (01/17/25 12:18 PM) Social History Social History Type Response Smoking Status Former smoker, quit more than 30 days ago;Never; Type: Cigarettes; Tobacco use times per day: Quit smoking 1985; social smoker, intermittent basis, never more than 1 or 2 cigarettes at a time.; Number of years: 10; entered on: 07/29/23 Sex Sex Representation Female (finding) Note * Homa Guadalupe: PERFORM Event Display: Patient Education/Instruction Authored Date: [id number] Ambulatory Adult Visit Summary [facility] [address] [place] [address] Name: LAILA JOHNSON : 1955?? Visit: 01/17/2025 12:15?? Ambulatory Visit Instructions ?? Your Care Team Primary Care Provider Trang Bautista MD? This Visit Provider Trang Bautista MD Your Diagnosis Afib Constipation Fibromyalgia MDD (major depressive disorder), recurrent episode, moderate SHAHLA (generalized anxiety disorder) SOUMYA on CPAP Osteoarthritis of both knees Hyperlipidemia Prediabetes Vitals Signs Temperature: 97.3 DegF Height: 151 cm Pulse Rate: 75 bpm Weight: 65.2 kg Systolic Blood Pressure: 119 mm Hg Body Mass Index:??28.6 kg/m2??High Diastolic Blood Pressure: 69 mm Hg Body surface area: 1.65 Oxygen Saturation: 100 % ?? What to do next Scheduled Follow-Up Appointments 2024 2:30 PM EDT ?? With: John Abdalla Where: [facility] [address] [place] [address]- Status: Pending Thursday 10:30 AM EDT ?? Where: [facility] [place] [address] Status: Pending Thursday 10:15 AM EDT ?? With: Owen Verma DO Where: [facility] [address] [place] [address]- Status: Pending Thursday 10:30 AM EDT ?? Where: [facility] Status: Pending Follow-Up Appointments Follow Up with??Trang Bautista MD When:??07/21/2025 01:30 PM EDT Why: mwv Where: [address] 3rd Floor [facility] [place] [address]- Future Orders Iron + Iron Binding Capacity - Routine, Once, 10/28/24 16:44:00 EST, Single or Recurring Future Order, [facility], Blood?? Ferritin - Routine, Once, 10/28/24 16:44:00 EST, Single or Recurring Future Order, [facility], Blood?? Hemoglobin A1C (Monitoring) - Routine, Once, 10/28/24 16:44:00 EST, Single or Recurring Future Order, [facility], Blood?? CBC w/ Differential - Routine, Once, 01/17/25 12:47:00 EDT, Single or Recurring Future Order, [facility], Blood?? Lipid Panel - Routine, Once, 01/17/25 12:47:00 EDT, Single or Recurring Future Order, [facility], Blood?? Hemoglobin A1C (Monitoring) - Routine, Once, 01/17/25 12:47:00 EDT, Single or Recurring Future Order, [facility], Blood?? Complete Urinalysis (Urinalysis Complete) - Routine, Once, 01/17/25 12:47:00 EDT, Single or Recurring Future Order, [facility], Urine?? TSH Rfx on Abnormal to Free T4 - Routine, Once, 01/17/25 12:47:00 EDT, Single or Recurring Future Order, [facility], Blood?? Hepatic Function Panel (7) - Routine, Once, 01/17/25 12:47:00 EDT, Single or Recurring Future Order, [facility], Blood?? Basic Metabolic Panel (BMP) - Routine, Once, 01/17/25 12:47:00 EDT, Single or Recurring Future Order, [facility], Blood?? Medications The list below reflects the information in our records and provided by you today along with any changes made during this visit. Please continue your medications until treatment is completed or stopped by your provider. If this is different from the information you have or there are other questions,please contact the prescribing provider. What How Much When Why Instructions Changed Calcium And Vitamin D Combination (calcium (as carbonate)-vitamin D 500 mg-400 intl units oral tablet) 1 tab(s) Oral Twice a day Pickup at [facility] Changed Polyethylene Glycol 3350 (MiraLax oral powder for reconstitution) 17 gram Oral Daily Constipation Duration: 30 Days dissolve in water or juice. My increase to 2-3 times a day as needed for constipation ?? Pickup at [facility] Unchanged apixaban (apixaban 5 mg oral tablet) 1 tab(s) Oral Twice a day Unchanged Azelastine Nasal (azelastine 137 mcg/ inh (0.1%) nasal spray) USE 2 SPRAYS NASALLY TWO TIMES A DAY DIRECTED ?? Unchanged Barium Sulfate (Readi-Cat 2 Smoothie [place] 2% oral suspension) See instructions as instructed by Radiology ?? Unchanged bifidobacterium-lactobacillus (Probiotic Formula) Oral Daily Unchanged Bimatoprost Ophthalmic (Lumigan) Daily before dinner Unchanged Bisacodyl (bisacodyl 5 mg oral delayed release tablet) See instructions 2 tablet By Mouth Daily, As needed for for constipation ?? Pickup at [facility] Unchanged Cyclobenzaprine (cyclobenzaprine 5 mg oral tablet) 1 tab(s) Oral Daily at Bedtime as needed for NEEDED FOR PAIN Unchanged Durable Medical Equipment (Compression Stockings) See instructions surgical, knee length 20-30 mm Hg ?? Unchanged Durable Medical Equipment (CPAP Machine) See instructions AUTO CPAP 7-15 CM H2O WITH HEATED HUMIDFICATION AND COMPLIANCE DATA AND RESIDUAL AHI FOLLOWED DX SOUMYA (G47.33) PIERRE 99 ?? Unchanged Durable Medical Equipment (CPAP Equipment) See instructions MASK TO FIT, TUBING, FILTERS, HEADGEAR, CHINSTRAP, WATER CHAMBER DX SOUMYA (G47.33) PIERRE 99 ?? Unchanged Famotidine (famotidine 20 mg oral tablet) See instructions Chronic GERD Constipation Hepatic steatosis 1 tablet By Mouth 1-2 times a day as needed for heartburn. ?? avoid eating and drinking for 10 minutes after each dose ?? Unchanged Flecainide (flecainide 50 mg oral tablet) 1 tab(s) Oral Every 12 hours Duration: 90 Days Unchanged Lansoprazole (lansoprazole 30 mg oral enteric coated capsule) 1 capsule Oral Daily Unchanged Loratadine (loratadine 10 mg oral tablet) 1 tab(s) Oral Daily Unchanged Melatonin Unchanged Metoprolol (metoprolol 25 mg oral tablet, extended release) 1 tab(s) Oral Daily Unchanged Olopatadine Ophthalmic (olopatadine 0.1% ophthalmic solution) Unchanged [place]-3 Polyunsaturated Fatty Acids (Fish Oil) Oral Unchanged Ondansetron (ondansetron 4 mg oral tablet) 1 tab(s) Oral Every 8 hours as needed for NEEDED FOR NAUSEA/VOMITING Unchanged wheat dextrin (Benefiber oral powder for reconstitution) See instructions Constipation 4 Gm dissolved in 4 to 8 oz of beverage- hot or cold taking by mouth daily. May inrease up to 3 times a day as needed. ?? Pharmacy Information [facility]: [address] [place] [address] [phone] ?? What How Much When Comments Stop Taking Cetirizine (cetirizine 10 mg oral tablet) 1 tab(s) Oral Daily Test Performed Below is a partial list of the tests performed during your Visit. You may have had other tests and procedures not included in this list. Please discuss all test results with your provider. Basic Metabolic Panel (BMP)?-- Results Pending -- CBC w/ Differential?-- Results Pending -- Hemoglobin A1C (Monitoring)?-- Results Pending -- Hepatic Function Panel (7)?-- Results Pending -- Lipid Panel?-- Results Pending -- TSH Rfx on Abnormal to Free T4?-- Results Pending -- Urinalysis Complete?-- Results Pending -- Medications and Immunizations Administered Medications Given During Visit No medications given during this visit.?? Allergies (NKA means No Known Allergies) erythromycin??(GI UPSET) Bactrim??(Nausea) Other Food Allergy??(lactose intolerant, tomatoes) Premarin amoxicillin??(Rash) gabapentin containing compounds??(Stomach upset) morphine??(C/O - vomiting) oxybutynin penicillin??(hives) traZODone??(C/O - a headache) Common Emergency Awareness Tips IS IT A STROKE? Act FAST and Check for these signs: FACE Does the face look uneven? ARM Does one arm drift down? SPEECH Does their speech sound strange? TIME Call at any sign of stroke ?? Heart Attack Signs Chest discomfort: Most heart attacks involve discomfort in the center of the chest and lasts more than a few minutes, or goes away and comes back. It can feel like uncomfortable pressure, squeezing, fullness or pain. Discomfort in upper body: Symptoms can include pain or discomfort in one or both arms, back, neck, jaw or stomach. Shortness of breath: With or without discomfort. Other signs: Breaking out in a cold sweat, nausea, or lightheaded. Remember, MINUTES DO MATTER. If you experience any of these heart attack warning signs, call to get immediate medical attention! ?? Smoking can increase your chances of developing chronic health problems and can cause harmful effects to other family members in your house. If you smoke, you are strongly encouraged to quit. Please call [facility] WeGoOut Link at [phone] or [phone]-Savings ([phone]) or log in to [email or web address] for referrals to smoking cessation programs. ?? The National Suicide Prevention Hotline is available 18/05 if you or someone you know needs to find a reason to keep living. By calling 3-747-387-Encover (0789) you'll be connected to a skilled, trained counselor at a crisis center in your area. [facility] WeGoOut Portal You can view and manage your care through the patient portal or by using a health care rashawn of your choosing. Scroll.in is a website that allows you to securely view your medical information including your hospital discharge summary, office visit summaries, medications and follow-up visits. You can also request appointments, renew medications, and request access to your medical information using a health care rashawn of your choosing, or just ask a question. You can enroll at [email or web address] or register during your next office visit. [facility], in keeping with [facility] guidance, no longer requires face masks for staff, patientsor visitors in most situations. Similiar to time spent indoors at other locations, there is the chance that you were exposed to repiratory viruses during your time with us (such as flu or COVID-19). If you develop symptoms concerning for a viral respiratory infection, please seek testing (and treatment if indicated) from your medical provider or home test kit. ?? Disclaimer: The information provided is of a general nature and is intended to be used in conjunction with the recommendations and advice of your health care practitioner. Every effort has been made to ensure that the information provided is accurate and complete at the time it is provided to you however, as your needs change, or, as new information becomes available, different or additional instructions may be required. ?? If you have questions, please consult with your primary care provider or pharmacist, as appropriate. This information is not intended to serve as substitution for assessment and evaluation by a qualified health care provider. If you do not have a primary care provider, you may find a [facility] provider by calling [facility] at [phone]. Patient Care team information Care Team Personnel Name: Trang Bautista MD Position: S Physician - Primary Care Member Role: PCP Address: [address] [place] [address] Telecom: Care Team Related Persons Name: RAMIRO JOHNSON Name: RAMIRO JOHNSON Name: AMAN JOHNSON Name: AMAN JOHNSON Name: AMAN JOHNSON Insurance Providers Guarantor name: LAILA ELIZABETH Health Plan Information #: 1 Payer: MEDICARE PART B OUTPT Member Number: [id number] Policy Number: NA Group Number: NA Health Plan Information #: 2 Payer: [facility] Member Number: [id number] Policy Number: NA Group Number: [id number]
--- OUTSIDE RECORDS SUMMARY | 2025-01-27 15:41 | XMS_ITS | Encounter Summary ---
Author Organization [facility] Address [address] [place] [address] Care Team Providers Care Drive Worker Name Role Phone Mandie Johnston MD Primary Care Provider [facility], Pcp Primary Care Provider [facility] Encounter Details Date Type Department Care Team Description 01/27/2020 SCAN Medical Records [address] [place] [id number] Abstract, Provider Social History Tobacco Use Types [...] on filedocumented in this encounter Care Teams Drive Worker Relationship Specialty Start Date End Date Mandie Johnston MD PCP - General Internal Medicine 11/17/1803/08 [facility], Pcp PCP - General Internal Medicine 03/09/23 documented as of this encounter
--- OUTSIDE RECORDS SUMMARY | 2025-01-27 15:41 | XMS_ITS | Encounter Summary ---
Author Organization [facility] Address [address] [place] [address] Care Team Providers Care Marketing Summer Intern Name Role Phone Mandie Johnston MD Primary Care Provider [facility] Pcp Primary Care Provider [facility] Encounter Details Date Type Department Care Team Description 02/11/2021 Pt. Non Urgent Medical Question Adult Medicine B - [address] [address] Estrellita Naik PA-C [address] [place] [address] Social History Tobacco Use Types Packs/Day Years Used Date Smoking Tobacco: Former Cigarettes Q uit: 1989 Smokeless Tobacco: Never Alcohol Use Standard Drinks/Week Comments No 0 (1 standard drink = 0.6 oz pur e alcohol) Sex Assigned at Date Recorded Female 02/12/2021 1:04 PM E DT documented as of this encounter Miscellaneous Notes * Telephone Encounter - Magaly Long M.A. - 02/11/2021 11:20 AM EDTFrom: Sarah Kemp To: ESTRELLITA NAIK PA-C Sent: 02/11/2021 9:30 AM EDT Subject: About getting covid-19 vaccine shot Estrellita, is it safe to take ceririzine when I get my covid-19 shot on January? I do not know if it s like a anti- inflammatory in it. It said not to take a anti-inflammatory medicine. Please letme know if it is ok to take. Thank you Sarah Kemp documented in this encounter Plan of Treatment Not on file documented as of this encounter Visit Diagnoses Not on filedocumented in this encounter Care Teams Marketing Summer Intern Relationship Specialty Start Date End Date Mandie Johnston MD PCP - General Internal Medicine 11/17/1803/08 [facility], Pcp PCP - General Internal Medicine 03/09/23 documented as of this encounter
--- OUTSIDE RECORDS SUMMARY | 2025-01-27 15:41 | XMS_ITS | Encounter Summary ---
Author Organization [facility] Address [address] [place] [address] Care Team Providers Care Work Study Student Name Role Phone Mandie Johnston MD Primary Care Provider [facility], Pcp [facility] Encounter Details Date Type Department Care Team Description 05/02/2020 Dumpcart Driver Report Medical Records [address] [place] [address] Kortney Figueredo PA-C Social History Tobacco Use Types Packs/Day Years [...] on filedocumented in this encounter Care Teams Work Study Student Relationship Specialty Start Date End Date Mandie Johnston MD PCP - General Internal Medicine 11/17/1803/08 [facility], Pcp PCP - General Internal Medicine 03/09/23 documented as of this encounter
--- OUTSIDE RECORDS SUMMARY | 2025-01-27 15:41 | XMS_ITS | Encounter Summary ---
Author Organization [facility] Address [address] [place] [address] Care Team Providers Care Antiquer Name Role Phone Mandie Johnston MD [facility], Pcp [facility] Encounter Details Date Type Department Care Team Description 07/15/2021 Refill Adult Medicine [facility] [address] [place] [address] Mandie Johnston MD Social History Tobacco Use [...] on filedocumented in this encounter Care Teams Antiquer Relationship Specialty Start Date End Date Mandie Johnston MD PCP - General Internal Medicine 11/17/1803/08 [facility] Pcp PCP - General Internal Medicine 03/09/23 documented as of this encounter
--- OUTSIDE RECORDS SUMMARY | 2025-01-27 15:41 | XMS_ITS | Encounter Summary ---
Author Organization [facility] Address [address] [place] [address] Care Team Providers Care Turning Sander Tender Name Role Phone Laura Bonds Primary Care Provider Unavailab Mandie Green MD Primary Care Provider [facility], Pcp [facility] Encounter Details Date Type Department Care Team Description 03/11/2018 Hospital Medical Records [address] [place] [id number] Sony Ennis MD Social History Tobacco Use Types Packs/Day [...] on filedocumented in this encounter Care Teams Turning Sander Tender Relationship Specialty Start Date End Date Laura Bonds FNP PCP - General Internal Medicine 07/15/13 11/16/18 Mandie Johnston MD PCP - General Internal Medicine 11/17/1803/08 [facility], Pcp PCP - General Internal Medicine 03/09/23 documented as of this encounter
--- OUTSIDE RECORDS SUMMARY | 2025-01-27 15:41 | XMS_ITS | Encounter Summary ---
Author Organization [facility] Address [address] [place] [address] Care Team Providers Care Hat Maker Name Role Phone Mandie Johnston MD [facility], Pcp Primary Care Provider [facility] e Encounter Details Date Type Department Care Team Description 10/05/2020 Pt. Non Urgent Medical Question Adult Medicine B - [address] [address] Mandie Johnston MD Social History Tobacco Use [...] on filedocumented in this encounter Care Teams Hat Maker Relationship Specialty Start Date End Date Mandie Johnston MD PCP - General Internal Medicine 11/17/1803/08 [facility] Pcp PCP - General Internal Medicine 03/09/23 documented as of this encounter
--- OUTSIDE RECORDS SUMMARY | 2025-01-27 15:41 | XMS_ITS | Encounter Summary ---
Author Organization [facility] Address [address] [place] [address] Care Team Providers Care International Coordinator Name Role Phone Mandie Johnston MD [facility] Primary Care Provider Unavailabl e Encounter Details Date Type Department Care Team Description 12/16/2019 Home Health Certification Medical Records [address] [place] [address] [facility] [address] [place] [address] Social History Tobacco Use Types Packs/Day Years [...] on filedocumented in this encounter Care Teams International Coordinator Relationship Specialty Start Date End Date Mandie Johnston MD PCP - General Internal Medicine 11/17/1803/08 [facility], Pcp PCP - General Internal Medicine 03/09/23 documented as of this encounter
--- OUTSIDE RECORDS SUMMARY | 2025-01-27 15:41 | XMS_ITS | Encounter Summary ---
Author Organization [facility] Address [address] [place] [address] Care Team Providers Care Sap Bpc Developer Name Role Phone Mandie Johnston MD Primary Care Provider [facility], Pcp Primary Care Provider [facility] Encounter Details Date Type Department Care Team Description 04/22/2020 Pt. Non Urgent Medical Question Adult Medicine B - [address] [address] Mandie Johnston MD Social History Tobacco Use Types Packs/Day Years Used Date Smoking Tobacco: Former Cigarettes Q uit: 1989 Smokeless Tobacco: Never Alcohol Use Standard Drinks/Week Comments No 0 (1 standard drink = 0.6 oz pur e alcohol) Sex Assigned at Date Recorded Female 02/12/2021 1:04 PM E DT documented as of this encounter Progress Notes * Quynh Michael M.A. - 04/23/2020 8:44 AM EDTFrom: Sarah Kemp To: Mandie Mckenzie MD Sent: 04/22/2020 12:54 AM EDT Subject: About taking prednisone 20mg I sent you a message earlier tonight but I also forgot to tell you should I be taking prednisone cause I have glaucoma, cataracts,osteoporosis.Can I still go food shopping if I still wear mymask ?And should I go for the abdominal cat scan on May 01 now ?and see Dr. Wylie on May 02.? I do not want to get covid -19 while taking this med. I [place] it will weaken mine immune system, making it easier for you to get an infection like covid-19. I started it Sat.Morning 3 tabs.Then I amsuppose to take 3 tabs tomorrow then the next day,after that 2 tabs per day for 3 days ,then 1 tab per day for 3 days.I will be done by April 29. Please let me know .Thank You Sarah Kemp. documented in this encounter Plan of Treatment Not on file documented as of this encounter Visit Diagnoses Not on filedocumented in this encounter Care Teams Sap Bpc Developer Relationship Specialty Start Date End Date Mandie Johnston MD PCP - General Internal Medicine 11/17/1803/08 [facility], Pcp PCP - General Internal Medicine 03/09/23 documented as of this encounter
--- OUTSIDE RECORDS SUMMARY | 2025-01-27 15:41 | XMS_ITS | Encounter Summary ---
Author Organization [facility] Address [address] [place] [address] Care Team Providers Care Food And Nutrition Professor Name Role Phone Mandie Johnston MD Primary Care Provider [facility], Pcp Primary [facility] Provider [facility] Encounter Details Date Type Department Care Team Description 10/17/2019 [facility] Medical Records [address] [place] [address] Abstract, Provider Social History Tobacco Use Types [...] on filedocumented in this encounter Care Teams Food And Nutrition Professor Relationship Specialty Start Date End Date Mandie Johnston MD PCP - General Internal Medicine 11/17/1803/08 [facility], Pcp PCP - General Internal Medicine 03/09/23 documented as of this encounter
--- OUTSIDE RECORDS SUMMARY | 2025-01-27 15:41 | XMS_ITS | Encounter Summary ---
Author Organization [facility] Address [address] [place] [address] Care Team Providers Care Construction Materials Tester Name Role Phone Mandie Johnston MD Primary Care Provider [facility], Pcp Primary Care Provider [facility] e Encounter Details Date Type Department Care Team Description 02/23/2021 Pt. Non Urgent Medical Question Adult Medicine B - [address] [address] Filomena Naik PA-C [address] [place] [id number] Social History Tobacco Use Types Packs/Day Years [...] encounter Miscellaneous Notes * Telephone Encounter - Whitney Koehler M.A. - 02/25/2021 8:45 AM EDTFrom: Sarah Kemp To: Carlo Naik Sent: 02/23/2021 7:15 PM EDT Subject: About covid-19 vaccine/side effects Filomena I got my 1st. covid-19 Vaccine om February 22 it was the Pfizer. I was going pee every hour andhad started having slight pain in my back on the left side. Today (February 23) I have to pee every 1/2hour and and the pain in my back feels like cramping. Is there anyway pleads I can get a kidney test done before I go get the 2nd. covid-19 vaccine on February ?Can you please call me before 11:30am on ThursdayFebruary 25. I have a PT appt. after 12pm. Thank You for your help Sarah Kemp. documented in this encounter Plan of Treatment Not on file documented as of this encounter Visit Diagnoses Not on filedocumented in this encounter Care Teams Construction Materials Tester Relationship Specialty Start Date End Date Mandie Johnston MD PCP - General Internal Medicine 11/17/1803/08 [facility], Pcp PCP - General Internal Medicine 03/09/23 documented as of this encounter
--- OUTSIDE RECORDS SUMMARY | 2025-01-27 15:41 | XMS_ITS | Encounter Summary ---
Author Organization [facility] Address [address] [place] [address] Care Team Providers Care Safety Belt Installer Name Role Phone Mandie Johnston MD Primary Care Provider [facility], Pcp Primary Care Provider [facility] e Reason for Visit * Reason Onset Date Comments medication problems 03/11/2019 Encounter Details Date Type Department Care Team Description 03/11/2019 Telephone Adult Med - [place] [address] [place] [address] Mandie Johnston MD medication problems Social History Tobacco Use Types Packs/Day Years Used Date Smoking Tobacco: Former Cigarettes Q uit: 1989 Smokeless Tobacco: Never Sex Assigned at Date Recorded Female 02/12/2021 1:04 PM E DT documented as of this encounter Miscellaneous Notes * Telephone Encounter - Viji Flynn M.A. - 03/18/2019 1:21 PM EDT I spoke to the pt and would do peg 3350 powder * Telephone Encounter - Asher Coffey MD - 03/17/2019 11:52 AM EDT Please ask the patient what she would like to do. * Telephone Encounter - Viji Flynn M.A. - 03/16/2019 3:[address] Coffey this medication wasn't approved (osmoprep) the pharmacy recommended trilyte, gavilyte or peg 3350 powder. * Telephone Encounter - Denny Abdullahi M.A. - 03/14/2019 8:48 AM EDT Prescribed by DR Coffey * Telephone Encounter - Shaina Bautista C.M.A. - 03/11/2019 2:33 PM EDT This is not our patient * Telephone Encounter - Priya Beavers - 03/11/2019 1:34 PM EDT Who is calling? Sharon Name of the medication Osmoprep Tablets What is the specific problem or interaction? Plan does not cover medication perscribed. Plan alternative medication include: trilyte, gavilyte, PEG 3350 powder. Please fax back with approval along with strengh, directions, quantity, and refills. If the patient is having a problem with taking the med - how long has the problem been going on? N/A documented in this encounter Plan of Treatment Not on file documented as of this encounter Visit Diagnoses Not on filedocumented in this encounter Care Teams Safety Belt Installer Relationship Specialty Start Date End Date Mandie Johnston MD PCP - General Internal Medicine 11/17/1803/[facility] Pcp PCP - General Internal Medicine 03/09/23 documented as of this encounter
--- OUTSIDE RECORDS SUMMARY | 2025-01-27 15:41 | XMS_ITS | Encounter Summary ---
Author Organization [facility] Address [address] [place] [address] Care Team Providers Care Beverage Server Name Role Phone Mandie Johnston MD Primary Care Provider [facility], Pcp Primary [facility] Provider [facility] Encounter Details Date Type Department Care Team Description 02/21/2021 Pt. Non Urgent Medical Question Adult Urgent Care - [address] [id number] Buzz Ford MD [address] [place] [address] [phone] Social History Tobacco Use Types Packs/Day Years [...] have Coronavirus / COVID-19? No / Unsure 02/19/2021 12:35 PM EDT documented as of this encounter Plan of Treatment Not on file documented as of this encounter Visit Diagnoses Not on filedocumented in this encounter Care Teams Beverage Server Relationship Specialty Start Date End Date Mandie Johnston MD PCP - General Internal Medicine 11/17/1803/08 [facility], Pcp PCP - General Internal Medicine 03/09/23 documented as of this encounter
--- OUTSIDE RECORDS SUMMARY | 2025-01-27 15:41 | XMS_ITS | Encounter Summary ---
Author Organization [facility] Address [address] [place] [address] Care Team Providers Care Model Photographers' Name Role Phone Mandie Johnston MD Primary Care Provider [facility], Pcp Primary Care Provider [facility] e Reason for Visit * Reason Onset Date Comments Advice 06/30/2019 Encounter Details Date Type Department Care Team Description 06/30/2019 Pt. Non Urgent Medical Question Adult Medicine B - [address] [address] Filomena Naik PA-C [address] [place] [address] Social History Tobacco Use Types Packs/Day Years Used Date Smoking Tobacco: Former Cigarettes Q uit: 1989 Smokeless Tobacco: Never Sex Assigned at Date Recorded Female 02/12/2021 1:04 PM E DT documented as of this encounter Progress Notes * Emily Humphrey L.P.N. - 07/01/2019 8:01 AM EDTFrom: Sarah Kemp To: Filomena Naik PA-C Sent: 06/30/2019 10:55 PM EDT Subject: About vit. C Filomena did you want me to take a Vit.C ,how much,and if so can you send me a prescription for it? documented in this encounter Plan of Treatment Not on file documented as of this encounter Visit Diagnoses Not on filedocumented in this encounter Care Teams Model Photographers' Relationship Specialty Start Date End Date Mandie Johnston MD PCP - General Internal Medicine 11/17/1803/08 [facility], Pcp PCP - General Internal Medicine 03/09/23 documented as of this encounter
--- OUTSIDE RECORDS SUMMARY | 2025-01-27 15:41 | XMS_ITS | Encounter Summary ---
Author Organization [facility] Address [address] [place] [address] Care Team Providers Care Choir Member Name Role Phone Mandie Johnston MD Primary Care Provider [facility], Pcp [facility] Encounter Details Date Type Department Care Team Description 10/20/2019 Orders Only Adult Medicine B - [address] [address] Mandie Johnston MD Social History Tobacco Use [...] on filedocumented in this encounter Care Teams Choir Member Relationship Specialty Start Date End Date Mandie Johnston MD PCP - General Internal Medicine 11/17/1803/08 [facility], Pcp PCP - General Internal Medicine 03/09/23 documented as of this encounter
--- OUTSIDE RECORDS SUMMARY | 2025-01-27 15:41 | XMS_ITS | Encounter Summary ---
Author Organization [facility] Address [address] [place] [address] Care Team Providers Care Antique Furniture Restorer Name Role Phone Mandie Johnston MD Primary Care Provider [facility], Pcp Primary Care Provider Unavailabl e Reason for Visit * Reason Comments E-prescribe Rx Request Encounter Details Date Type Department Care Team Description 10/22/2019 Refill Adult Medicine B - [address] [address] Filomena Naik PA-C [address] [place] [address] E-prescribe Rx Request Social History Tobacco Use [...] Telephone Encounter - Mandie Mckenzie MD - 10/24/2019 11:35 AM EST Signed, thank you * Telephone Encounter - Denny Abdullahi M.A. - 10/24/2019 11:11 AM EST Last office visit 09.07.19 * Telephone Encounter - Anna Melgoza - 10/24/2019 9:23 AM EST Patient would like script to be: E-PRESCRIBED/FAXED TO PHARMACY WHEN WAS THE PATIENT'S LAST APPOINTMENT IN ADULT MEDICINE? 09/07/19 WHEN WAS THE LAST TIME THE PATIENT SAW THEIR PCP? 07/25/19 Does patient have an upcoming appointment? Yes 01/06/20 (THE MEDICATION REQUESTED IS ON THE MED LIST ABOVE) All of the medications requested were on the CURRENT MEDS list Did you check the Pharmacy information above?: YES Patient wants: 90 -day supply Is this a mail order prescription request ? NO If the refill is from a FAXED refill request what is the RX # listed on the fax? N/A Patients current insurance carrier is: [facility] / Plan: [facility] / Product Type: HMO [id number] documented in this encounter Plan of Treatment Not on file documented as of this encounter Visit Diagnoses Not on filedocumented in this encounter Care Teams Antique Furniture Restorer Relationship Specialty Start Date End Date Mandie Johnston MD PCP - General Internal Medicine 11/17/1803/08 [facility], Pcp PCP - General Internal Medicine 03/09/23 documented as of this encounter
--- OUTSIDE RECORDS SUMMARY | 2025-01-27 15:41 | XMS_ITS | Encounter Summary ---
Author Organization [facility] Address [address] [place] [address] Care Team Providers Care Flower Buncher Or Picker Name Role Phone Mandie Johnston MD Primary Care Provider [facility], Pcp Primary Care Provider Unavailabl e Reason for Visit * Reason Onset Date Comments Mychart Rx Refill 12/22/2020 Encounter Details Date Type Department Care Team Description 12/22/2020 Refill Adult Medicine B - [address] [address] Mandie Johnston MD Mychart Rx Refill Social History Tobacco Use Types Packs/Day Years Used Date Smoking Tobacco: Former Cigarettes Q uit: 1989 Smokeless Tobacco: Never Alcohol Use Standard Drinks/Week Comments No 0 (1 standard drink = 0.6 oz pur e alcohol) Sex Assigned at Date Recorded Female 02/12/2021 1:04 PM E DT documented as of this encounter Miscellaneous Notes * Telephone Encounter - Maxine Lowry M.A. - 12/24/2020 11:28 AM EST Please explain reason for denial * Telephone Encounter - Whitney Koehler M.A. - 12/24/2020 11:02 AM EST Last office visit: 10.23.20-Dr Young Lab Results Component Value Date NA 142 10/23/2020 K 4.2 10/23/2020 CO2 29 10/23/2020 CL 108 10/23/2020 BUN 9 10/23/2020 CREAT 0.78 10/23/2020 GLU 91 10/23/2020 CA 9.5 10/23/2020 GFR > 60 10/23/2020 documented in this encounter Plan of Treatment Not on file documented as of this encounter Visit Diagnoses Not on filedocumented in this encounter Care Teams Flower Buncher Or Picker Relationship Specialty Start Date End Date Mandie Johnston MD PCP - General Internal Medicine 11/17/1803/08 [facility], Pcp PCP - General Internal Medicine 03/09/23 documented as of this encounter
--- OUTSIDE RECORDS SUMMARY | 2025-01-27 15:41 | XMS_ITS | Encounter Summary ---
Author Organization [facility] Address [address] [place] [address] Care Team Providers Care Infant Nanny Name Role Phone Mandie Johnston MD Primary Care Provider [facility], Pcp Primary Care Provider Unavailabl e Reason for Referral * Non LANDON (Priority) - Unable to reach/declined Specialty Diagnoses / Procedures Referred By Ivet mi Referred To Contact Gastroenterology Procedures REFERRAL TO GASTROENTEROLOGY Mealnie Naik PA-C [address] [place] [address] Gastro [place]/[address] [address] Referral ID Status Reason Start Date Expiration Date V isits Requested Visits Authorized [id number] Unable to reach/declin ed 04/07/2019 04/06/2020 1 1 Reason for Visit * Reason Onset Date Comments Provider Call Back 04/06/2019 Encounter Details Date Type Department Care Team Description 04/06/2019 Telephone Adult Medicine B - [address] [address] Mandie Johnston MD Provider Call Back Social History Tobacco Use Types Packs/Day Years Used Date Smoking Tobacco: Former Cigarettes Q uit: 1990 Smokeless Tobacco: Never Sex Assigned at Date Recorded Female 02/12/2021 1:04 PM E DT documented as of this encounter Miscellaneous Notes * Telephone Encounter - Melanie Naik PA-C - 04/07/2019 12:08 PM EDT Referral signed, priority placed on referral. * Telephone Encounter - India Romero - 04/07/2019 9:45 AM EDT Patient was inform of message below. Patient verbalized understanding of message and will call office with any questions or concerns. Per patient she would like another referral for GI dept [facility]. States she's never had to buy the prep for colonscopy in the past.please review and advised. * Telephone Encounter - Melanie Naik PA-C - 04/07/2019 8:22 AM EDT Per telephone encounter from 03/29 she was told by GI that these are OTC and does not need prescription. PCP states that Rx really should come from GI, so if she would like referral to another providerI can place that. * Telephone Encounter - Denny Abdullahi M.A. - 04/06/2019 4:31 PM EDT See message below / Med not ordered , I was not sure on the dosing Thank you * Telephone Encounter - Fior Gardiner - 04/06/2019 4:14 PM EDT Caller requesting call back from provider: Is the caller the patient? YES Reason for call back: Pt is looking for advice from Melanie Naik, she was referred to gastro w/Dr. Coffey for colonoscopy-pt was asking for a rx for polyenthylene glycol, pt states dr will not prescribe this to her. Also, states she can not pay for this out of pocket and will not be able to do the procedure without it. Pt is ? If melanie can write her a rx or refer her to another gastro. Caller offered to speak with the nurse for assistance: YES Response: Patient offered to speak with nurse for assistance and patient agreed. Message forwarded to nurse. documented in this encounter Plan of Treatment Not on file documented as of this encounter Visit Diagnoses Not on filedocumented in this encounter Care Teams Infant Nanny Relationship Specialty Start Date End Date Mandie Johnston MD PCP - General Internal Medicine 11/17/1803/08 [facility], Pcp PCP - General Internal Medicine 03/09/23 documented as of this encounter
== END ==
LOC: HO.CARD 13:52
PROVIDERS: PCP Internal Medicine; Visit Provider Nurse Practitioner Family
DX: I48.91 Unspecified atrial fibrillation (principal); R07.89 Other chest pain; G47.30 Sleep apnea, unspecified
CPT/HCPCS: 93306; Q9957

== ENCOUNTER → 2025-01-27 14:01 | Outpatient (BNV) | payer MEDICARE, MEDICAID, SELFPAY | PROVIDERS: PCP Internal Medicine; Visit Provider Internal Medicine | DX: I36.1 Nonrheumatic tricuspid (valve) insufficiency (principal) | CPT/HCPCS: 93306 ==

== ENCOUNTER → 2025-02-09 08:44 | Outpatient (REF) | payer MEDICARE, MEDICAID, SELFPAY ==
--- NOTE | 2025-02-09 08:49 | CA_ITS ---
Acquisition Time: 2025-02-09 09:00:11 Total Exercise Time: 00:02:00 Test Indications: AFIB POST CARDIOVERSION X2 Medications: SEE H&P Protocol: LEXISCAN Max HR: 117 BPM 78% of Pred: 150 BPM Max BP: 142/70 mmHG Max Work Load: 1.0 METS Pharmacological stress test with Lexiscan while pt swings her legs in the chair, with reports of SOB, dizziness and headache, 4/10 constant mid chest pressure at baseline that didnot change, with isolated PACs and PVCs, with brief strial runs- max 3 beats, with normotensive response to injection. Nondiagnostic EKG for ischemia. In recovery, pt treated with IVP Aminophylline 75 mg to reverse Lexiscan, after which pt slowly feeling back to baseline. Nuclear images pending. Test reviewed with Dr. Montes De Oca. Referred By: Kami George Electronically Signed By: Ronn Cruz
--- OUTSIDE RECORDS SUMMARY | 2025-02-09 09:26 | XMS_ITS | Encounter Summary ---
Author Organization [facility] Address [address] [place] [address] Care Team Providers Care Rescue Boat Operator Name Role Phone Mandie Johnston MD Primary Care Provider [facility], Pcp Primary Care Provider Unavailabl e Reason for Visit * Reason Onset Date Comments refill request 02/03/2022 Encounter Details Date Type Department Care Team Description 02/03/2022 Refill Adult Medicine [address] [address] Mandie Johnston MD refill request Social History [...] D3 2,000 Unit Softgel Capsule Preferred pharmacy: [id number] [place], [place] - [address] [place] [address]. AT [facility] [employer] [facility] Medication renewals requested in this message [...] on filedocumented in this encounter Care Teams Rescue Boat Operator Relationship Specialty Start Date End Date Mandie Johnston MD PCP - General Internal Medicine 11/17/1803/08 [facility], [facility]cp PCP - General Internal Medicine 03/09/23 documented as of this encounter
--- OUTSIDE RECORDS SUMMARY | 2025-02-09 09:26 | XMS_ITS | Encounter Summary ---
Author Organization [facility] Address [address] [place] [address] Care Team Providers Care Real Estate Appraiser Supervisor Name Role Phone Mandie Johnston MD Primary Care Provider [facility], Pcp Primary [facility] Encounter Details Date Type Department Care Team Description 04/15/2022 Cardiographer Report Medical Records [address] [place] [address] PA-C Social History Tobacco Use Types Packs/Day [...] on filedocumented in this encounter Care Teams Real Estate Appraiser Supervisor Relationship Specialty Start Date End Date Mandie Johnston MD PCP - General Internal Medicine 11/17/1803/08 [facility], Pcp PCP - General Internal Medicine 03/09/23 documented as of this encounter
--- OUTSIDE RECORDS SUMMARY | 2025-02-09 09:26 | XMS_ITS | Encounter Summary ---
Author Organization [facility] Address [address] [place] [address] Care Team Providers Care Document Advisor Name Role Phone Mandie Johnston MD Primary Care Provider [facility], Pcp Primary [facility] Encounter Details Date Type Department Care Team Description 01/20/2022 Sound Recording Technician Report Medical Records [address] [place] [address] Smiley Hawthorne NP Social History Tobacco Use Types Packs/Day Years [...] on filedocumented in this encounter Care Teams Document Advisor Relationship Specialty Start Date End Date Mandie Johnston MD PCP - General Internal Medicine 11/17/1803/08 [facility], Pcp PCP - General Internal Medicine 03/09/23 documented as of this encounter
--- OUTSIDE RECORDS SUMMARY | 2025-02-09 09:27 | XMS_ITS | Encounter Summary ---
Author Organization [facility] Address [address] [place] [address] Care Team Providers Care Rustic Terrazzo Setter Name Role Phone Mandie Johnston MD Primary Care Provider [facility], Pcp Primary Care Provider [facility] e Reason for Visit * Reason Comments E-prescribe Rx Request Encounter Details Date Type Department Care Team Description 08/22/2021 Refill Adult Medicine B - [address] [address] Mandie Johnston MD E-prescribe Rx Request Social [...] / Plan[place] / Product Type: MEDICARE [id number] documented in this encounter Plan of Treatment Not on file documented as of this encounter Visit Diagnoses Not on filedocumented in this encounter Care Teams Rustic Terrazzo Setter Relationship Specialty Start Date End Date Mandie Johnston MD PCP - General Internal Medicine 11/17/1803/08 [facility], Pcp PCP - General Internal Medicine 03/09/23 documented as of this encounter
--- OUTSIDE RECORDS SUMMARY | 2025-02-09 09:27 | XMS_ITS | Encounter Summary ---
Author Organization [facility] Address [address] [place] [address] Care Team Providers Care Storage Architect Name Role Phone Mandie Johnston MD Primary Care Provider [facility], Pcp [facility] Encounter Details Date Type Department Care Team Description 07/18/2022 Silver Designer Report Medical Records [address] [place] [address] Smiley Hawthorne NP Social History Tobacco Use [...] on filedocumented in this encounter Care Teams Storage Architect Relationship Specialty Start Date End Date Mandie Johnston MD PCP - General Internal Medicine 11/17/1803/08 [facility] Pcp PCP - General Internal Medicine 03/09/23 documented as of this encounter
--- OUTSIDE RECORDS SUMMARY | 2025-02-09 09:27 | XMS_ITS | Encounter Summary ---
Author Organization [facility] Address [address] [place] [address] Care Team Providers Care Color Receiver Name Role Phone [facility], Pcp Primary Care Provider Unavailabl e Encounter Details Date Type Department Care Team Description 04/05/2024 Thermostat Repairer Report Medical Records [address] [place] [id number] [place] [address], [facility] [address] [place] [address] Social History Tobacco Use Types Packs/Day Years [...] on filedocumented in this encounter Care Teams Color Receiver Relationship Specialty Start Date End Date [facility], Pcp PCP - General Internal Medicine 03/09/23 documented as of this encounter
--- OUTSIDE RECORDS SUMMARY | 2025-02-09 09:27 | XMS_ITS | Data Portability ---
Author Organization [place] - [facility], Allergy Address [address] [address] Care Team Providers Care Bone Density Technician Name Role Phone SIM ASHRAF Primary Care Provider Assessment Encounter Date Assessment [...] schedule hearing exam in the near future. [email or web address] Not available 08/24/2024 14:23:03 02/08/2025 02/08/2025 1. Otitis externa Sarah has a prior history of fungal infection in the right ear - today there is no evidence of abnormality on exam. She deferred audiogram today. - Recommend follow-up when able with audiogram - At that time she wants to discuss her raspiness - she did not want to address this today [email or web address] Not available 02/08/2025 13:50:59 Plan of Treatment Reminders Order Date Submit Date Provider Last Modified By Organization Details Last Modified Time Details Appointments Hearing Test 2024 01:30P M Hearing Test Not available Not available Not available Establish ed 15 2024 02:00P M ESTRELLITA RAMOS MD Not available Not available Not available Lab None recorded. Referral None recorded. Procedures None recorded. Surgeries None recorded. Imaging None recorded. Medication Orders Ciprodex 0.3 %-0.1 % ear drops,sylvia pension 2023 024 [email or web address] [id number], [address] [facility], [place], [address], 02/08/2025 10:54:46 Patient TargetsNo targets recorded. Patient InstructionsNo instructions [...] Recorded Time Otorrhea of bilatera l ears [id number] 84345 Active 2021 Otorrhea , bilatera l; Note: Date Diagnose d: 05/29/2022 10:56 AM (H92.13) Not Available [facility] 4 02:48:15 Bleeding from nose 057359412 Active 2022 Epistaxi s; Note: Date Diagnose d: 3 11:58 AM (R04.0) Not Available [facility] 4 02:48:21 Itching of skin 495614650 Active 2019 Pruritus , unspecif ied; Note: Date Diagnose d: 02/02/2020 10:14 AM (L29.9) Not Available [facility] 4 02:48:16 Dysphoni a 46244617 Active 2020 Hoarsene ss; Note: Date Diagnose d: 03/29/2021 11:16 AM (R49.0) Not Available [facility] 4 02:48:21 Xerostom ia 74098129 Active 2021 Dry mouth, unspecif ied; Note: Date Diagnose d: 2 11:57 AM (R68.2) Not Available [facility] 4 02:48:22 Dizzines s and giddines s 598636453 Active 2022 Dizzines s and giddines s; Note: Date Diagnose d: 3 2:35 PM (R42) Not Available [facility] 4 02:48:16 Posterio r rhinorrh ea 59986334 Active 2022 Postnasa l drip; Note: Date Diagnose d: 3 11:58 AM (R09.82) Not Available [facility] 4 02:48:17 Sensorin eural hearing loss of bilatera l ears 713329102 Active 2019 Sensorin eural hearing loss, bilatera l; Note: Date Diagnose d: 06/27/2020 11:47 AM (H90.3) Not Available [facility] 4 02:48:18 Otorrhea of right ear 20994971666 76308 Active 2022 Otorrhea , right ear; Note: Date Diagnose d: 3 4:03 PM (H92.11) Not Available [facility] 4 02:48:19 Pain of left temporom andibula r joint 62360227815 730888 Active 2023 Arthralg ia of left temporom andibula r joint; Note: Date Diagnose d: 10/30/2023 1:26 PM (M26.622 ) Not Available [facility] 4 02:48:18 Chronic mycotic otitis externa 360670327 Active 2021 Chronic mycotic otitis externa; Note: Date Diagnose d: 2 11:18 AM (380.15) Not Available [facility] 4 02:48:14 Impacted cerumen in left ear 54438646099 66902 Active 2022 Impacted cerumen, left ear; Note: Date Diagnose d: 3 1:27 PM (H61.22) Impact ed cerumen, left ear; Note: Date Diagnose d: 08/11/20 22 1:12 PM (H61.22) ; Start Date : 08/11/20 Not Available [facility] 4 02:48:20 Gastroes ophageal reflux disease without esophagi tis 105148624 Active 2021 Gastro-e sophagea l reflux disease without esophagi tis; Note: Date Diagnose d: 2 11:57 AM (K21.9) Not Available [facility] 4 02:48:22 Diffuse otitis externa 98375204 Completed 202005/27/2024 Diffuse otitis externa, right ear; Note: Date Diagnose d: 1 8:32 AM (H60.311 ) Not Available [facility] 4 02:48:14 Candidal otitis externa 38846487 Active 2021 Candidal otitis externa; Location : right No te: Date Diagnose d: 08/11/20 22 1:12 PM (B37.84) Not Available [facility] 4 02:48:23 Bilatera l diffuse otitis externa 79928870874 27516 Completed 202105/27/2024 Diffuse otitis externa, bilatera l; Note: Date Diagnose d: 2 11:19 AM (H60.313 ) Not Available [facility] 4 02:48:19 Referred otalgia 68376630 Active 2020 Otalgia secondar y to TMJ; Note: Date Diagnose d: 1 3:14 PM (388.72) Not Available [facility] 4 02:48:23 Dysphagi a 91184554 Active 2021 Dysphagi a, unspecif ied; Note: Date Diagnose d: 02/27/2022 1:39 PM (R13.10) Not Available [facility] 4 02:48:18 Otalgia of right ear 7749477167 Active 2022 Otalgia, right ear; Note: Date Diagnose d: 3 11:58 AM (H92.01) Not Available [facility] 4 02:48:17 Eustachi an tube disorder 92175502 Active 2019 Other specifie d disorder s of Eustachi an tube, unspecif ied ear; Note: Date Diagnose d: 02/02/2020 10:14 AM (H69.80) Not Available [facility] 4 02:48:19 Superfic ial mycosis 955791679 Active 2021 Other specifie d superfic ial mycoses; Note: Date Diagnose d: 2 11:19 AM (B36.8) Not Available [facility] 4 02:48:14 Otalgia of left ear 7414726253 Active 2019 Otalgia, left ear; Note: Date Diagnose d: 02/02/2020 10:13 AM (H92.02) Not Available [facility] 4 02:48:20 Impacted cerumen of bilatera l ears 38343356951 98789 Active 2020 Impacted cerumen, bilatera l; Note: Date Diagnose d: 03/29/2021 11:16 AM (H61.23) Not Available [facility] 4 02:48:20 Mixed conducti ve and sensorin eural hearing loss of right ear 50101037656 105 Active 2023 JENISE KNIGHT, AUD [address] [facility] [address], [place], [address] , [place] - [facility] 4 12:20:06 Sensorin eural hearing loss 76466445 Active 2023 JENISE KNIGHT, AUD [address] [facility] [address], [place], [address] , [place] [facility] [place] 4 12:20:21 Arthralg ia of temporom andibula r joint 29092226 Active 2023 MARILYN ABDI PA-C 100 [facility] [address], [place], [address] , [place] - [facility] 4 13:13:26 Acute otitis externa 02253796 Active 2023 MARILYN ABDI PA-C 100 [facility] [address], [place], [address] , [place] [facility] 4 13:13:31 Acute serous otitis media of bilatera l ears 29710582692 55056 Active 2023 Acute serous otitis media, bilatera l; Note: Date Diagnose d: 4 1:10 PM (H65.03) Not Available [facility] 4 02:48:15 Cough 86370751 Active 2023 Cough, unspecif ied; Note: Changed from R05 to R05.9 (12/18/19 24 5:00 PM) , Date Diagnose d: 4 1:10 PM (R05) Not Available [facility] 4 02:48:16 Acute maxillar y sinusiti s 46671328 Active 2023 Acute maxillar y sinusiti s, unspecif ied; Note: Date Diagnose d: 4 1:10 PM (J01.00) Not Available [facility] 4 02:48:21 Allergic rhinitis caused by pollen 20397922 Active 2023 Allergic rhinitis due to pollen; Note: Date Diagnose d: 4 3:06 PM (J30.1) Not Available [facility] 4 02:48:22 Bilatera l disorder of Eustachi an tubes 05242041386 49232 Active 2023 MARILYN ABDI PA-C [address] [place] [address],[place] [address], [place], [address] , [facility] [place] 4 14:24:03 Nasal congesti on 92421713 Active 2023 MARILYN ABDI PA-C [address] [place] [address],[place] [address], [place], [address] , [facility] [place] 4 14:24:07 Chronic otitis externa 05856612 Active 2024 CURTIS DENNIS MD [address] [place] [address],[place] [address], [place], [address] , [place] - [facility] 5 13:51:45 Problem Notes None recorded. Procedures Surgical History Date Name Laterality Status Provider Name and Address Organization Details Recorded Time 02/09/20 25 otomicroscopy completed CURTIS DENNIS MD [address] [place] [address],[place] [address], [place], [address], [facility] [place] 02/08/2025 13:51:17 08/24/20 24 Cerumen removal without microscope bilat completed MARILYN ABDI PA-C [address] [facility],[address], [place], [address], [facility] - [facility] 08/24/2024 14:22:06 04/11/20 24 Comp Audio with Tymps (68278 & 40628) completed SANDIP PROCTOR [address] [facility],[address], [place], [address], [facility] 04/11/2024 12:19:43 Imaging Results Imaging Date Name [...] Name and Address Organization Details Recorded Time 70803 meloxicam medicatio n other Not available Not available 03/08/2024 71721 RxNorm React ion: unkno wn, unspe cifie d;; Not Available [facility] 00:59:14 90862 estradiol medicatio n other Not available Not available 03/08/2024 4083 RxNorm React ion: unkno wn, unspe cifie d;; Not Available [facility] 4 00:59:15 94689 oxycodone medicatio n other Not available Not available 03/08/2024 7804 RxNorm React ion: unkno wn, unspe cifie d;; Not Available [facility] 4 00:59:16 68264 doxycycli ne Not available other Not available Not available 03/08/2024 3640 RxNorm React ion: unkno wn, unspe cifie d;; Not Available [facility] 4 00:59:17 84181 gabapenti n medicatio n other Not available Not available 03/08/2024 77691 RxNorm React ion: unkno wn, unspe cifie d;; Not Available [facility] 4 00:59:19 23017 Bactrim medicatio n other Not available Not available 03/08/2024 89905 9 RxNorm React ion: unkno wn, unspe cifie d;; Not Available [facility] 4 00:59:20 29822 amoxicill in medicatio n hives Not available Not available 03/08/2024 723 RxNorm React ion: skin rashe s, hives ;; Not Available [facility] 4 00:59:22 71918 azithromy char medicatio n other Not available Not available 03/08/2024 12042 RxNorm React ion: unkno wn, unspe cifie d;; Not Available [facility] 4 00:59:24 42198 Fosamax medicatio n other Not available Not available 03/08/2024 78628 5 RxNorm React ion: unkno wn, unspe cifie d;; Not Available [facility] 4 00:59:27 01546 oxybutyni n chloride Not available other Not available Not available 03/08/2024 33603 RxNorm React ion: unkno wn, unspe cifie d;; Not Available [facility] 4 00:59:30 45536 trazodone medicatio n other Not available Not available 03/08/2024 87826 RxNorm React ion: unkno wn, unspe cifie d;; Not Available [facility] 4 00:59:33 40971 Premarin medicatio n other Not available Not available 03/08/202497948 6 RxNorm React ion: unkno wn, unspe cifie d;; Not Available [facility] 4 00:59:36 61976 penicilli n V potassium medicatio n other Not available Not available 03/08/202417592 5 RxNorm React ion: unkno wn, unspe cifie d;; Not Available [facility] 4 00:59:41 36085 morphine medicatio n other Not available Not available 03/08/2024 7052 RxNorm React ion: unkno wn, unspe cifie d;; Not Available [facility] 4 00:59:45 80772 Actos medicatio n other Not available Not available 03/08/2024 95263 2 RxNorm React ion: unkno wn, unspe cifie d;; Karyn sears [place] - [facility] 4 11:48:39 04616 erythromy char ethylsucc inate medicatio n other Not available Not available 03/08/2024 4056 RxNorm React ion: unkno wn, unspe cifie d;; Not Available [facility] 4 00:59:54 Medications Name Sig Start Date Stop Date Status Note LastModified by Organization Details LastModified Time doxycycli ne hyclate 100 mg capsule TAKE ONE CAPSULE BY MOUTH TWICE A DAY FOR 10 DAYS 04/11 completed Not Available Not Available Not Available polyethyl rupesh glycol 3350 17 gram oral powder packet 11/28 completed Medicati on ID: [id number] B rand Name: polyethy carlton glycol 3350 [...] release 24 hr active Medicati on ID: [id number] B rand Name: metoprol ol succinat e Send Method: E-Prescr ibed Sub s Allowed: subs OK Medic ationGen ericName : metoprol ol succinat e Not Available Not Available Not Available clotrimaz ole-betam ethasone 1 %-0.05 % lotion Apply a small amount three times a day as directed 04/11 completed Medicati on ID: [id number] D uration Value: 14 Brand Name: clotrima zole-bet amethaso ne Send Method: E-Prescr ibed Sub s Allowed: subs OK Speci al Instruct ion: Apply with finger to ear canal skin. Me dication GenericN pushpa: clotrima zole-bet amethaso ne Medic ation ID: [id number] D uration Value: 14 Brand Name: clotrima [...] eye drops 08/11 completed Medicati on ID: 967058 B rand Name: ketorola c Send Method: E-Prescr ibed Sub s Allowed: subs OK Medic ationGen ericName : ketorola c Not Available Not Available Not Available calcium 600 mg (as calcium carbonate 1,500 mg) tablet TAKE 1 TABLET BY MOUTH TWICE A DAY WITH MEALS 02/08 completed Not Available Not Available Not Available famotidin e 20 mg tablet TAKE 1 TABLET BY MOUTH ONCE TO TWICE DAILY NEEDED FOR HEARTBUR N. AVOID EATING OR DRINKING FOR 10 MINUTES AFTER EACH DOSE. active Not Available Not Available No t Available prednisol one acetate 1 % eye drops,sylvia pension 08/11 completed Medicati on ID: [id number] B rand Name: predniso lone acetate Send [...] layed release 11/28 completed Medicati on ID: 960151 B rand Name: pantopra zole Sen d Method: E-Prescr ibed Sub s Allowed: subs OK Medic ationGen ericName : pantopra zole Not Available Not Available Not Available Cipro 500 mg tablet 1 tablet by mouth 04/11 completed Medicati on ID: [id number] D uration Value: 7 Prescri bed By Name: TAMAR Knight nd Name: Cipro Se nd Method: E-Prescr ibed Sub s Allowed: subs OK Medic ationGen ericName : Cipro Me dication ID: [id number] D uration Value: 7 Prescri bed By Name: TAMAR Knight nd Name: Cipro Se nd Method: E-Prescr ibed Sub s Allowed: subs OK Medic ationGen ericName : Cipro Not Available Not Available Not Available clotrimaz ole-betam ethasone 1 %-0.05 % topical cream Apply 1 a small amount twice a day 04/11 completed Medicati on ID: [id number] D uration Value: 14 Brand Name: clotrima zole-bet amethaso ne Send Method: E-Prescr ibed Sub s Allowed: subs OK Speci al Instruct ion: Apply with fingerti p to external ear BID x 2 weeks Me dication GenericN pushpa: clotrima zole-bet amethaso ne Medic ation ID: [id number] D uration Value: 14 Brand Name: clotrima [...] eye drops 08/11 completed Medicati on ID: [id number] B rand Name: brimonid ine Send Method: E-Prescr ibed Sub s Allowed: subs OK Medic ationGen ericName : brimonid ine Not Available Not Available Not Available clotrimaz ole 1 % topical solution Apply 04/11 completed Medicati on ID: [id number] D uration Value: 14 Brand Name: clotrima zole Sen d Method: E-Prescr ibed Sub s Allowed: subs OK Speci al Instruct ion: 4 drops to the right ear BID x 2 weeks Me dication GenericN pushpa: clotrima zole Med ication ID: [id number] D uration Value: 14 Brand Name: clotrima zole Sen d Method: E-Prescr ibed Sub s Allowed: subs OK Speci al Instruct ion: 4 drops to the right ear BID x 2 weeks Me dication GenericN pushpa: clotrima zole Not Available Not Available Not Available betametha sone dipropion ate 0.05 % topical cream 1 a small amount 11/28 completed Medicati on ID: [id number] D uration Value: 14 Prescri bed By Name: TAMRA Knight nd Name: betameth asone dipropio julio Sen d Method: E-Prescr ibed Sub s Allowed: subs OK Speci al Instruct ion: Apply to external ear bid X 14 days Med icationG enericNa me: betameth asone dipropio julio Not Available Not Available Not Available omeprazol e 20 mg capsule,d elayed release 11/20 completed Medicati on ID: [id number] D uration Value: 30 Brand Name: omeprazo [...] Not Available Not Available No t Available bisacodyl 5 mg tablet,de layed release TAKE TWO TABLETS BY MOUTH EVERY DAY NEEDED FOR CONSTIPA TION active Not Available Not Available No t Available hydrochlo rothiazid e 25 mg tablet 11/20 completed Medicati on ID: [id number] D uration Value: 90 Brand Name: hydrochl [...] SPRAYS NASALLY TWO TIMES A DAY DIRECTED 02/08 completed Not Available Not Available Not Available ferrous sulfate 325 mg (65 mg iron) tablet,de layed release TAKE ONE TABLET BY MOUTH EVERY OTHER DAY WITH VITAMIN CAPSULE TO HELP ABSORPTI ON active Not Available Not Available No t Available celecoxib 100 mg capsule 08/11 completed Medicati on ID: [id number] B rand Name: celecoxi b Send Method: E-Prescr ibed Sub s [...] to skin 11/28 completed Medicati on ID: [id number] D uration Value: 14 Prescri bed By Name: TAMAR Knight nd Name: clotrima zole Sen d Method: E-Prescr ibed Sub s Allowed: subs OK Speci al Instruct ion: to external ears Med [facility] enericNa me: clotrima zole Not Available Not Available Not Available loratadin e 10 mg tablet TAKE ONE TO TWO TABLETS BY MOUTH EVERY MORNING active Not Available Not Available No t Available naproxen 500 mg tablet 11/20 completed Medicati on ID: [id number] D uration Value: 90 Brand Name: naproxen Send Method: E-Prescr ibed Sub s Allowed: subs OK Speci al Instruct ion: TK 1 T PO BID Medi cationGe nericNam e: naproxen Not Available Not Available Not Available TobraDex 0.3 %-0.1 % eye drops,sylvia pension 08/09 completed Medicati on ID: [id number] D uration Value: 14 Prescri bed By Name: Estrellita galvez MD Brand Name: TobraDex Send Method: E-Prescr ibed Sub s Allowed: subs OK Speci al Instruct ion: Instill 4 drops in the right ear BID for 14 days Med [facility] enericNa me: TobraDex Not Available Not Available Not Available Mapap Arthritis Pain 650 mg tablet,ex tended release 11/28 completed Medicati on ID: [id number] D uration Value: 30 Brand Name: Mapap [...] RIGHT EAR TWICE DAILY FOR 10 DAYS 02/08 completed Not Available Not Available Not Available DermOtic Oil 0.01 % ear drops 2 drop 04/11 completed Medicati on ID: [id number] D uration Value: 30 Brand Name: DermOtic Oil Send Method: E-Prescr ibed Sub s Allowed: subs OK Speci al Instruct ion: as needed for itching Medicati onGeneri cName: DermOtic Oil Medi cation ID: [id number] D uration Value: 30 Brand Name: DermOtic [...] t Available ClearLax 17 gram/dose oral powder :DISSOLV E 17 GRAMS 1 CAPFUL) IN WATER OR JUICE. MY INCREASE TO 2-3 TIMES A DAY NEEDED FOR CONSTIPA TION active Not Available [...] mcg tablet 08/11 completed Medicati on ID: [id number] D uration Value: 90 Brand Name: Adults 50 Plus Sen d Method: E-Prescr ibed Sub s Allowed: subs OK Speci al Instruct ion: TK 1 T PO D Medica tionGene ricName: Adults 50 Plus Not Available Not Available Not Available Linzess 72 mcg capsule TAKE ONE CAPSULE BY MOUTH EVERY DAY DO NOT CRUSH OR CHEW active Not Available Not Available No t Available Daily-Vit e (with folic acid) 400 mcg tablet 08/11 completed Medicati on ID: [id number] B rand Name: Daily-Vi te (with folic acid) Se nd Method: E-Prescr ibed Sub s Allowed: subs OK Medic ationGen ericName : Daily-Vi te (with folic acid) Not Available Not Available Not Available Astepro Allergy 205.5 mcg (0.15 %) nasal spray [place] 1 spray into both nostrils twice a day 01/10 completed Medicati on ID: [id number] P keshawn galvez By Name: Wilmer Smith M.D. Bra nd Name: Astepro Allergy Send Method: E-Prescr ibed Sub s Allowed: subs OK Medic ationGen ericName : Astepro Allergy Not Available Not Available Not Available Vitals Date Recorded Body height Body mass index (BMI) Body weight Provider Name and Address Organization Details Last Updated DateTime 04/11/2024 151.13 cm 27.8 kg/m2 09001.93 g Karyn Antonio [place] - [facility] 04/11/2024 11:48:18 Date Recorded Body height Body weight Provider Name and Address Organization Details Last Updated DateTime 02/08/2025 151.13 cm 18067.93 g Michelle Zamarripa [place] - [facility] 02/08/2025 10:54:15 Date Recorded Body height Body mass index (BMI) Body weight Provider Name and Address Organization Details Last Updated DateTime 08/24/2024 151.13 cm 27.8 kg/m2 40434.93 g Whitney Wood [place] - [facility] 08/24/2024 13:39:27 Social History None recorded. Functional Status None recorded. Mental Status None recorded. Family History Nothing Reported. Medical History No medical history recorded. Gynecological HistoryNo gynecological history recorded. Obstetrics History GPAL:G 0 P 0 0 0 0 Past Encounters Encounter ID Performer Location Encounter Start Date Encounter Closed Date Diagnosis/Indication Diagnosis SNOMED-CT Code Diagnosis ICD10 Code Diagnosis Note [id number] AMBROCIO SANODVAL MD [facility] [address] [address] 04/11/2024 11:30:47 04/11/2024 12:33:15 Otalgia of right ear 8226544814 H92.01 Arthralgia of temporomandibular joint 13834702 M26.629 Acute otitis externa 302 90010 H60.509 [id number] SANDIP PROCTOR [facility] [address] [address] 04/11/2024 12:19:13 04/12/2024 12:46:23 Mixed conductive and sensorineural hearing loss of right ear 9231654980 9105 H90.A31 Sensorineu ral hearing loss 41913756 H90.A22 Audiologic al evaluation results: Right ear: [...] Cou ld not maintain a hermetic seal}} [id number] WILMER SMITH MD [facility] [address] [address] 08/24/2024 13:15:02 08/24/2024 14:13:43 Bilateral disorder of Eustachian tubes 9117811600 333417 H69.93 Nasal congestion 6169646 0 R09.81 [id number] CURTIS DENNIS MD [facility] [address] [place] [address] 02/08/2025 10:50:02 02/08/2025 11:22:53 Chronic otitis externa 93479209 H60.61 Health Concerns Section Related Observation LastModified by Organization Detai ls LastModified Time None Recorded Concern Status LastModified by Organization Details LastModified Time None Recorded Advance Directives Directive None Recorded Payers Encounter Date Sequence Insurance Name Policy Number Policy Ahuja Covered Member ID Ahuja Member ID Guarantor Name 04/11/2024 1 [place] [employer] Sarah Viridiana [id number] Sarah E Viridiana 04/11/2024 2 [place] Viridiana [id number] Sarah E Viridiana 04/11/2024 1 [place] Sarah Viridiana [id number] Sarah E Viridiana 04/11/2024 2 [place] Sarah Viridiana [id number] Sarah E Viridiana 08/24/2024 1 [place] [employer] Sarah Viridiana [id number] Sarah E Viridiana 08/24/2024 2 [place] Sarah Viridiana [id number] Sarah E Viridiana 02/08/2025 1 [place] [employer] Sarah Viridiana [id number] Sarah E Viridiana 02/08/2025 2 [place] Sarah Viridiana [id number] Sarah E Viridiana Notes Date Note Type [...] other side is unaffected. AMBROCIO ARITA MD [address] [facility],[place] [address], [place], [address], [facility] - [facility] 04/11/2024 16:59:59 08/24/2024 text/html 68-year-old gamal hernandez presents for cerumen. Has been having more postnasal drip and nasal congestion which she feels is affecting her ears causing ear fullness. Cannot use Flonase due to glaucoma. WILMER SMITH MD [address] [facility],[place] [address], [place], [address], [facility] - [facility] 08/25/2024 08:54:43 02/08/2025 text/html 69yo female here for otologic evaluation.She deferred audiogram today - says she does not want to address this at this time.Prior history of fungal infection in the right ear.Wants it rechecked today: She denies any change in hearing, otorrhea, dizziness, vertigo, otalgia, otologic surgeries. CURTIS DENNIS MD [address] [facility], [place], [address], [facility] - [facility] 02/08/2025 13:51:50 OBGyn Episode No OBEpisode recorded.
--- OUTSIDE RECORDS SUMMARY | 2025-02-09 09:27 | XMS_ITS | Encounter Summary ---
Author Organization [facility] Address [address] [place] [address] Care Team Providers Care Residential Care Facility Manager Name Role Phone Mandie Johnston MD Primary Care Provider [facility], Pcp [facility] Encounter Details Date Type Department Care Team Description 01/27/2020 SCAN Medical Records [address] [place] [id number] Abstract, Provider Social History Tobacco Use Types [...] on filedocumented in this encounter Care Teams Residential Care Facility Manager Relationship Specialty Start Date End Date Mandie Johnston MD PCP - General Internal Medicine 11/17/1803/08 [facility], Pcp PCP - General Internal Medicine 03/09/23 documented as of this encounter
--- OUTSIDE RECORDS SUMMARY | 2025-02-09 09:27 | XMS_ITS | Encounter Summary ---
Author Organization [facility] Address [address] [place] [address] Care Team Providers Care Office Rep Name Role Phone Mandie Johnston MD Primary Care Provider [facility], Pcp Primary Care Provider [facility] e Reason for Visit * Reason Onset Date Comments Urinary Frequency/Urgency/Burning 01/22/2020 Back Pain 01/22/2020 Encounter Details Date Type Department Care Team Description 01/22/2020 Telephone Adult Urgent Care - [address] [address] Mandie Johnston MD Urinary Frequency/Urgency/Burnin g; Back Pain Social History Tobacco Use Types Packs/Day Years Used Date Smoking Tobacco: Former Cigarettes Q uit: 1989 Smokeless Tobacco: Never Alcohol Use Standard Drinks/Week Comments No 0 (1 standard drink = 0.6 oz pur e alcohol) Sex Assigned at Date Recorded Female 02/12/2021 1:04 PM E DT documented as of this encounter Miscellaneous Notes * Telephone Encounter - Krystle Romo - 01/22/2020 8:51 AM EDT Symptoms patient is having: Back pain, uti. -tried to book this appointment, will not let us book in office or audio visit For ALL patients calling to schedule any appointment (routine, sick visit, follow up, consult, etc.) in the outpatient setting please ask the following questions. ??? Do you have fever, cough or shortness of breath? NO ??? Have you had close contact with someone with Coronavirus in the last 14 days? NO ??? Have you traveled abroad? NO ??? Have you been to [place] or in contact with anyone who has recently been in [place]? NO If YES to either, send the call to triage and do not book If pain or injury related was it due to an accident at work or from a motor vehicle accident? NO If yes, gather 3rd republican insurance information Date of accident/Injury: na How long has patient had these symptoms?: this week PCP: Mandie Mckenzie Payor: [employer] / Plan: MED[employer] / Product Type: MEDICARE [id number] documented in this encounter Plan of Treatment Not on file documented as of this encounter Visit Diagnoses Not on filedocumented in this encounter Care Teams Office Rep Relationship Specialty Start Date End Date Mandie Johnston MD PCP - General Internal Medicine 11/17/1803/08 [facility], Pcp PCP - General Internal Medicine 03/09/23 documented as of this encounter
--- OUTSIDE RECORDS SUMMARY | 2025-02-09 09:27 | XMS_ITS | Encounter Summary ---
Author Organization [facility] Address [address] [place] [address] Care Team Providers Care Geophysical Laboratory Supervisor Name Role Phone Mandie Johnston MD Primary Care Provider [facility], Pcp Primary Care Provider [facility] Encounter Details Date Type Department Care Team Description 12/03/2021 Pt. Non Urgent Medical Question Adult Medicine A - [address] [address] Mandie Johnston MD Social History Tobacco Use [...] on filedocumented in this encounter Care Teams Geophysical Laboratory Supervisor Relationship Specialty Start Date End Date Mandie Johnston MD PCP - General Internal Medicine 11/17/1803/08 [facility], Pcp PCP - General Internal Medicine 03/09/23 documented as of this encounter
--- OUTSIDE RECORDS SUMMARY | 2025-02-09 09:27 | XMS_ITS | Encounter Summary ---
Author Organization [facility] Address [address] [place] [address] Care Team Providers Care Customer Counter Associate Name Role Phone Mandie Johnston MD Primary Care Provider [facility], Pcp Primary Care Provider [facility] e Encounter Details Date Type Department Care Team Description 08/10/2021 Pt. Non Urgent Medical Question Adult Medicine B - [address] [address] Filomena Naik PA-C [address] [place] [id number] Social History Tobacco Use Types Packs/Day Years [...] got the Inactivated Influenza Vaccine today at [facility] on 08/10/2021. I will get the covid -19 booster next month. Sarah Kemp documented in this encounter Plan of Treatment Not on file documented as of this encounter Visit Diagnoses Not on filedocumented in this encounter Care Teams Customer Counter Associate Relationship Specialty Start Date End Date Mandie Johnston MD PCP - General Internal Medicine 11/17/1803/08 [facility], Pcp PCP - General Internal Medicine 03/09/23 documented as of this encounter
--- OUTSIDE RECORDS SUMMARY | 2025-02-09 09:27 | XMS_ITS | Encounter Summary ---
Author Organization [facility] Address [address] [place] [address] Care Team Providers Care Header Machine Operator Name Role Phone Laura Bonds Primary Care Provider Unavailab Mandie Green MD Primary Care Provider [facility], Pcp Primary [facility] Encounter Details Date Type Department Care Team Description 03/11/2018 Hospital Medical Records [address] [place] [id number] Sony Ennis MD Social History Tobacco Use [...] on filedocumented in this encounter Care Teams Header Machine Operator Relationship Specialty Start Date End Date Laura Bonds FNP PCP - General Internal Medicine 07/15/13 11/16/18 Mandie Johnston MD PCP - General Internal Medicine 11/17/1803/08 [facility], Pcp PCP - General Internal Medicine 03/09/23 documented as of this encounter
--- OUTSIDE RECORDS SUMMARY | 2025-02-09 09:27 | XMS_ITS | Encounter Summary ---
Author Organization [facility] Address [address] [place] [address] Care Team Providers Care Entry Level Software Developer Name Role Phone Mandie Johnston MD Primary Care Provider [facility], Pcp Primary Care Provider Unavailabl e Reason for Visit * Reason Comments E-prescribe Rx Request Encounter Details Date Type Department Care Team Description 10/22/2019 Refill Adult Medicine B - [address] [address] Filomena Naik PA-C [address] [place] [id number] E-prescribe Rx Request Social History Tobacco Use [...] N/A Patients current insurance carrier is: Payor: [facility] [employer] [facility] MCR / Plan: [facility] / Product Type: HMO Arn-vrx-Buvueed documented in this encounter Plan of Treatment Not on file documented as of this encounter Visit Diagnoses Not on filedocumented in this encounter Care Teams Entry Level Software Developer Relationship Specialty Start Date End Date Mandie Johnston MD PCP - General Internal Medicine 11/17/1803/08 [facility], Pcp PCP - General Internal Medicine 03/09/23 documented as of this encounter
--- OUTSIDE RECORDS SUMMARY | 2025-02-09 09:27 | XMS_ITS | Encounter Summary ---
Author Organization [facility] Address [address] [place] [address] Care Team Providers Care Vocational Ed Instructor Name Role Phone Mandie Johnston MD Primary Care Provider [facility] Pcp Primary Care Provider [facility] Encounter Details Date Type Department Care Team Description 10/16/2021 Pt. Non Urgent Medical Question Adult Medicine B - [address] [address] Filomena Naik PA-C [address] [place] [phone] Social History Tobacco Use Types Packs/Day Years [...] surgery. you can either text me @ [phone] [email or web address] @ [email or web address] what ever is easier for you. Again [...] on filedocumented in this encounter Care Teams Vocational Ed Instructor Relationship Specialty Start Date End Date Mandie Johnston MD PCP - General Internal Medicine 11/17/1803/08 [facility], Pcp PCP - General Internal Medicine 03/09/23 documented as of this encounter
--- OUTSIDE RECORDS SUMMARY | 2025-02-09 09:27 | XMS_ITS | Encounter Summary ---
Author Organization [facility] Address [address] [place] [address] Care Team Providers Care Block Layer Name Role Phone Mandie Johnston MD Primary Care Provider [facility], Pcp Primary Care Provider [facility] Encounter Details Date Type Department Care Team Description [facility] [address] [address] Mandie Johnston MD Social History Tobacco Use [...] on filedocumented in this encounter Care Teams Block Layer Relationship Specialty Start Date End Date Mandie Johnston MD PCP - General Internal Medicine 11/17/1803/08 [facility], Pcp PCP - General Internal Medicine 03/09/23 documented as of this encounter
--- OUTSIDE RECORDS SUMMARY | 2025-02-09 09:27 | XMS_ITS | Clinical Summary ---
Author Organization [facility] Address [address] [place] [address] Care Team Providers Care Trash Man Name Role Phone [facility], Pcp Primary Care Provider Unavailabl e Allergies Active Allergy Reactions Severity Noted Date Comments Amoxicillin Hives/Urticaria 11/29/2018 Rudy Hives/Urticaria 11/29/2018 Alendronate Sodium 09/07/2019 Pain on leg and feet and glucoma pressure elevated Gabapentin Gastritis 11/29/2018 Meloxicam Gastritis 11/29/2018 Morphine 02/18/2019 Vomiting , stomach pain Naproxen Gastritis 11/29/2018 Oxybutynin Gastritis 11/29/2018 Penicillins Hives/Urticaria 11/29/2018 Premarin Palpitations 11/29/2018 Sulfa Drugs Nausea and Vomiting 11/29/2018 Trazodone Dizzy 11/29/2018 Medications Medication Sig Dispensed Refills Start Date End Date Status Melatonin 10 MG Tab Take 10 mg by mouth at bedtime. 0 Active Bimatoprost (LUMIGAN OP) Daily before dinner, 0 Refills, Maintenance, 07/19/21 13:24:00 EDT, Partial fill upon patient request if the prescription is for a schedule II opioid drug. 0 07/19/2021 Active Probiotic Product (Up4 Probiotics Adult) Cap Take by mouth. 0 Active Cholecalciferol (Vitamin D3) 75 MCG (3000 UT) Tab Take 2,000 Units by mouth. 0 Active Calcium Carbonate Antacid (TUMS ULTRA 1000 OR) Take by mouth. 0 Active Multiple Vitamins-Minerals (Multivitamin Women 50+) Tab Take 1 tablet by mouth daily. 90 tablet 1 01/03/2022 Active olopatadine (PATANOL) 0.1 % ophthalmic solution Place 1 Drop into both eyes 2 times daily. 30 mL 1 02/03/2022 Active cetirizine (ZYRTEC) 10 MG tablet Take 1 Tablet by mouth daily. 90 Tablet 1 02/03/2022 Active polyethylene glycol (GLYCOLAX) 17 g packet MIX AND DRINK 1 PACKET BY MOUTH EVERY DAY 30 Each 3 02/03/2022 Active ondansetron (ZOFRAN) 4 MG tabletIndications: Gastroesophageal reflux disease, unspecified whether esophagitis present Take 1-2 Tablets by mouth every 8 hours as needed for Nausea. 30 Tablet 1 02/03/2022 Active Elastic Bandages & Supports (Medical Compression Stockings) [facility] See Instructions, # 1 pair, Refills 3, Tot. Refills 3, Maintenance, surgical, panty hose length 20-30 mm Hg, 08/27/18 14:28:53 EDT, Compound 0 08/27/2018 Active D3 Super Strength 50 MCG (2000 UT) Cap TAKE 1 CAPSULE BY MOUTH EVERY DAY 90 Capsule 0 07/28/2022 Active polyethylene glycol (GLYCOLAX) 17 GM/SCOOP powderIndications: Gastroesophageal reflux disease, unspecified whether esophagitis present MIX 17GM IN LIQUID AND TAKE BY MOUTH EVERY DAY 510 g 0 09/01/2022 Active calcium carbonate (OS-RADHA) 600 MG Tab Take 1 Tablet by mouth 2 times daily (with meals). 180 Tablet 1 09/02/2022 Active Active Problems Problem Noted Date Osteoporosis without current pathologica l fracture 01/17/2021 Cervical radiculopathy 04/17/2020 Age related osteoporosis 07/25/2019 Osteoarthritis of both knees 07/15/2019 Vitamin D deficiency 03/29/2019 Essential hypertension 12/28/2018 IBS (irritable bowel syndrome) 9 Osteoarthritis 11/29/2018 Overview: Sees Dr Morin [facility] Sleep disturbance 11/29/2018 SOUMYA (obstructive sleep apnea) 11/29/2018 GERD (gastroesophageal reflux disease) 0 11/29/2018 Peripheral edema 11/29/2018 Glaucoma 11/29/2018 Obesity (BMI 30-39.9) 11/29/2018 Hiatal hernia Immunizations Name Administration Dates Next Due COVID-19 (Pfizer) Pt Reported 09/16/2021, 021,02/22/2021 Influenza (> 6 Months) 08/27/2019 Influenza vaccine high dose age 65 and over 07/26,07/06/2020 Pneumoccoccal(Adult) Polysaccharide PPSV23 10/23 Pneumococcal Conjugate PCV-13 10/22/2019 Shingrix (Patient reported) 05/07/2019 Shingrix (Recombinant zoster vaccine) 02/19/2019 Tdap 03/29/2019 Family History Medical History Relation Name Comments CA Prostate Brother CA Breast Sister twin sister 49 Cervical Cancer Sister CA Colon Negative Hx Relation Name Status Comments Brother Sister Social History Tobacco Use Types Packs/Day Years Used Date Smoking Tobacco: Former Cigarettes Q uit: 1989 Smokeless Tobacco: Never Alcohol Use Standard Drinks/Week Comments No 0 (1 standard drink = 0.6 oz pur e alcohol) Sex Assigned at Date Recorded Female 02/12/2021 1:04 PM E DT Last Filed Vital Signs Vital Sign Reading Time Taken Comments Blood Pressure 112/72 02/17/2022 3:48 PM EDT Pulse 68 02/17/2022 3:48 PM EDT Temperature 36 ??C (96.8 ??F) 12/02/2021 1:04 PM EST Respiratory Rate 12 12/09/2021 1:52 PM EST Oxygen Saturation 98% 12/02/2021 1:04 PM EST Inhaled Oxygen Concentration - - Weight 74.4 kg (164 lb 1.6 oz) 02/17/2022 3:48 P M EDT Height 149.9 cm (4' 11 ) 02/17/2022 3:48 PM EDT Body Mass Index 33.14 02/17/2022 3:48 PM EDT Plan of Treatment Health Maintenance Due Date Last Done Comments DEPRESSION SCREEN 12/26/2021 12/26/2020 FALL RISK ASSESSMENT 11/13/2022 11/13/2021, 10/23/20 20 MAMMOGRAM 04/04/2023 04/04/2022, 05/26 (External Completion), 10/23/2020 (Refused), Additional history exists BONE DENSITY SCREENING 08/01/2023 (External Completion), 06/20/2019 Covid-19 Vaccine (4 - 3-2 4 season) 2024 09/16/2021, 03/15/2021, 02/22/2021 BMI CHECK/ADVISE 10/26/2024 02/17/2022, , 12/26/2020, Additional history exists INFLUENZA (Season Ended) 2025 021, 07/06/2020, 08/27/2019, Additional history exists CHOLESTEROL SCREENING 10/23/2025 10/23/2020 , 03/29/2019, 01/04/2019 DTAP/TDAP/TD (4 - Td or Tdap) 03/29/2029, 04/18/2011, 03/18/2011 COLON CANCER SCREENING 08/15/2030 08/15/2020 HEPATITIS C SCREENING Completed 03/29/2019 SHINGLES VACCINE Completed 05/07/2019, 02/19/2019 PNEUMOCOCCAL VACCINE Completed 10/23/2020, 10/22/2019, 07/19/2010 Advance Directives For more information, please contact: [phone] Documents on File Type Date Recorded Patient Hse Coordinator Expl anation Health Care Proxy 11/20/2021 10:27 AM [facility] CARE PROXY Care Teams Trash Man Relationship Specialty Start Date End Date Community, Pcp PCP - General Internal Medicine 03/09/23
--- OUTSIDE RECORDS SUMMARY | 2025-02-09 09:27 | XMS_ITS | Encounter Summary ---
Author Organization [facility] Address [address] [place] [address] Care Team Providers Care Nutritional Services Cook Name Role Phone Mandie Johnston MD [facility]cp Primary [facility] Encounter Details Date Type Department Care Team Description 07/15/2021 Refill Adult Medicine [facility] [address] [place] [address] Mandie Johnston MD Social History Tobacco Use [...] on filedocumented in this encounter Care Teams Nutritional Services Cook Relationship Specialty Start Date End Date Mandie Johnston MD PCP - General Internal Medicine 11/17/1803/08 [facility] Pcp PCP - General Internal Medicine 03/09/23 documented as of this encounter
--- OUTSIDE RECORDS SUMMARY | 2025-02-09 09:27 | XMS_ITS | Continuity of Care Document ---
Author Organization [place] - [facility], [facility] Address [address] [place] [address] Care Team Providers Care Application Support Intern Name Role Phone FLOYDMIKAELCHRISWILTON SIM Primary Care Provider Assessment Encounter Date Assessment Date Assessment LastModified by Organization Details LastModified Time 02/08/2025 02/08/2025 1. Otitis externa Sarah has [...] None recorded. Imaging None recorded. Medication Orders None recorded. Patient TargetsNo targets recorded. Patient InstructionsNo instructions recorded. Reason for Referral None Reported. Problems Name Problem SNOMED Code Status Onset Date Resolution Date Notes Provider Name and Address Organization Details Recorded Time Otorrhea of bilatera l ears 01390488813 13019 Active 2021 Otorrhea , bilatera l; Note: Date Diagnose d: 05/29/2022 10:56 AM (H92.13) Not Available [facility] 02:48:15 Bleeding from nose 331320172 Active 2022 Epistaxi s; Note: Date Diagnose d: 3 11:58 AM (R04.0) Not Available [facility] 4 02:48:21 Itching of skin 817533693 Active 2019 Pruritus , unspecif ied; Note: Date Diagnose d: 02/02/2020 10:14 AM (L29.9) Not Available [facility] 4 02:48:16 Dysphoni a 88657127 Active 2020 Hoarsene ss; Note: Date Diagnose d: 03/29/2021 11:16 AM (R49.0) Not Available [facility] 4 02:48:21 Xerostom ia 19107058 Active 2021 Dry mouth, unspecif ied; Note: Date Diagnose d: 2 11:57 AM (R68.2) Not Available [facility] 4 02:48:22 Dizzines s and giddines s 244067372 Active 2022 Dizzines s and giddines s; Note: Date Diagnose d: 3 2:35 PM (R42) Not Available [facility] 4 02:48:16 Posterio r rhinorrh ea 59681987 Active 2022 Postnasa l drip; Note: Date Diagnose d: 3 11:58 AM (R09.82) Not Available [facility] 4 02:48:17 Sensorin eural hearing loss of bilatera l ears 944995451 Active 2019 Sensorin eural hearing loss, bilatera l; Note: Date Diagnose d: 06/27/2020 11:47 AM (H90.3) Not Available [facility] 4 02:48:18 Otorrhea of right ear 57248505326 79784 Active 2022 Otorrhea , right ear; Note: Date Diagnose d: 3 4:03 PM (H92.11) Not Available [facility] 4 02:48:19 Pain of left temporom andibula r joint 65989778965 231036 Active 2023 Arthralg ia of left temporom andibula r joint; Note: Date Diagnose d: 10/30/2023 1:26 PM (M26.622 ) Not Available [facility] 4 02:48:18 Chronic mycotic otitis externa 082477072 Active 2021 Chronic mycotic otitis externa; Note: Date Diagnose d: 2 11:18 AM (380.15) Not Available [facility] 4 02:48:14 Impacted cerumen in left ear 32660971599 00051 Active 2022 Impacted cerumen, left ear; Note: Date Diagnose d: 3 1:27 PM (H61.22) Impact ed cerumen, left ear; Note: Date Diagnose d: 08/11/20 1:12 PM (H61.22) ; Start Date : 08/11/20 Not Available [facility] 4 02:48:20 Gastroes ophageal reflux disease without esophagi tis 540810723 Active 2021 Gastro-e sophagea l reflux disease without esophagi tis; Note: Date Diagnose d: 2 11:57 AM (K21.9) Not Available [facility] 4 02:48:22 Diffuse otitis externa 87103504 Completed 202005/27/2024 Diffuse otitis externa, right ear; Note: Date Diagnose d: 1 8:32 AM (H60.311 ) Not Available [facility] 4 02:48:14 Candidal otitis externa 92801318 Active 2021 Candidal otitis externa; Location : right No te: Date Diagnose d: 08/11/20 1:12 PM (B37.84) Not Available [facility] 4 02:48:23 Bilatera l diffuse otitis externa 81992643595 55471 Completed 202105/27/2024 Diffuse otitis externa, bilatera l; Note: Date Diagnose d: 2 11:19 AM (H60.313 ) Not Available [facility] 4 02:48:19 Referred otalgia 12796138 Active 2020 Otalgia secondar y to TMJ; Note: Date Diagnose d: 1 3:14 PM (388.72) Not Available [facility] 4 02:48:23 Dysphagi a 30065809 Active 2021 Dysphagi a, unspecif ied; Note: Date Diagnose d: 02/27/2022 1:39 PM (R13.10) Not Available [facility] 4 02:48:18 Otalgia of right ear 5951145537 Active 2022 Otalgia, right ear; Note: Date Diagnose d: 3 11:58 AM (H92.01) Not Available [facility] 4 02:48:17 Eustachi an tube disorder 39542437 Active 2019 Other specifie d disorder s of Eustachi an tube, unspecif ied ear; Note: Date Diagnose d: 02/02/2020 10:14 AM (H69.80) Not Available [facility] 4 02:48:19 Superfic ial mycosis 596599168 Active 2021 Other specifie d superfic ial mycoses; Note: Date Diagnose d: 2 11:19 AM (B36.8) Not Available [facility] 4 02:48:14 Otalgia of left ear 1264035848 Active 2019 Otalgia, left ear; Note: Date Diagnose d: 02/02/2020 10:13 AM (H92.02) Not Available [facility] 4 02:48:20 Impacted cerumen of bilatera l ears 24206708358 03770 Active 2020 Impacted cerumen, bilatera l; Note: Date Diagnose d: 03/29/2021 11:16 AM (H61.23) Not Available [facility] 4 02:48:20 Mixed conducti ve and sensorin eural hearing loss of right ear 06830908104 105 Active 2023 JENISE KNIGHT, AUD [address], [place], [address] , [place] - [facility] 4 12:20:06 Sensorin eural hearing loss 34367295 Active 2023 JENISE KNIGHT, SANDIP [address], [place], [address] , [place] - [facility] 4 12:20:21 Arthralg ia of temporom andibula r joint 36048692 Active 2023 MARILYN ABDI PA-C [address], [place], [place], [address] , [place] - [facility] 4 13:13:26 Acute otitis externa 77128821 Active 2023 MARILYN ABDI PA-C [address], [place], [address] , [place] - [facility] 4 13:13:31 Acute serous otitis media of bilatera l ears 59902046583 95937 Active 2023 Acute serous otitis media, bilatera l; Note: Date Diagnose d: 4 1:10 PM (H65.03) Not Available [facility] 4 02:48:15 Cough 07861494 Active 2023 Cough, unspecif ied; Note: Changed from R05 to R05.9 (12/18/19 24 5:00 PM) , Date Diagnose d: 4 1:10 PM (R05) Not Available [facility] 4 02:48:16 Acute maxillar y sinusiti s 34402958 Active 2023 Acute maxillar y sinusiti s, unspecif ied; Note: Date Diagnose d: 4 1:10 PM (J01.00) Not Available [facility] 4 02:48:21 Allergic rhinitis caused by pollen 98048030 Active 2023 Allergic rhinitis due to pollen; Note: Date Diagnose d: 4 3:06 PM (J30.1) Not Available [facility] 02:48:22 Bilatera l disorder of Eustachi an tubes 22682856745 89615 Active 2023 MARILYN ABDI PA-C [address] [facility],[place] [address], [place], [address] , [facility] - [facility] 4 14:24:03 Nasal congesti on 86218200 Active 2023 MARILYN ABDI PA-C [address] [place] [address],[place] [address], [place], [address] , [facility] - [facility] 14:24:07 Chronic otitis externa 78954986 Active 2024 CURTIS DENNIS MD [address] [place] [address],[place] [address], [place], [address] , [facility] - [facility] 13:51:45 Problem Notes None recorded. Procedures Surgical History Date Name Laterality Status Provider Name and Address Organization Details Recorded Time 02/09/20 25 otomicroscopy completed CURTIS DENNIS MD [address] [place] [address],[place] [address], [place], [address], [facility] 02/08/2025 13:51:17 08/24/20 24 Cerumen removal without microscope bilat completed MARILYN ABDI PA-C [address] [place] [address],[place] [address], [place], [address], [facility] - [facility] 08/24/2024 14:22:06 04/11/20 24 Comp Audio with Tymps (13683 & 28425) completed SANDIP PROCTOR [address] [facility],[place] [address], [place], [address], [facility] - [facility] 04/11/2024 12:19:43 Imaging Results None recorded. Procedure Notes None recorded. Medical Equipment None Reported. Allergies Allergen ID Allergen Name Allergen Category Reaction Reaction Severity Criticality Documentation Date Start Date Code Code System Note Provider Name and Address Organization Details Recorded Time 54628 meloxicam medicatio n other Not available Not available 03/08/2024 87386 RxNorm React ion: unkno wn, unspe cifie d;; Not Available [facility] 4 00:59:14 28687 estradiol medicatio n other Not available Not available 03/08/2024 4083 RxNorm React ion: unkno wn, unspe cifie d;; Not Available [facility] 4 00:59:15 90033 oxycodone medicatio n other Not available Not available 03/08/2024 7804 RxNorm React ion: unkno wn, unspe cifie d;; Not Available [facility] 4 00:59:16 03879 doxycycli ne Not available other Not available Not available 03/08/2024 3640 RxNorm React ion: unkno wn, unspe cifie d;; Not Available [facility] 4 00:59:17 98960 gabapenti n medicatio n other Not available Not available 03/08/2024 67135 RxNorm React ion: unkno wn, unspe cifie d;; Not Available [facility] 4 00:59:19 64027 Bactrim medicatio n other Not available Not available 03/08/2024 84566 9 RxNorm React ion: unkno wn, unspe cifie d;; Not Available [facility] 4 00:59:20 16536 amoxicill in medicatio n hives Not available Not available 03/08/2024 723 RxNorm React ion: skin rashe s, hives ;; Not Available [facility] 4 00:59:22 30705 azithromy char medicatio n other Not available Not available 03/08/2024 37807 RxNorm React ion: unkno wn, unspe cifie d;; Not Available [facility] 4 00:59:24 05218 Fosamax medicatio n other Not available Not available 03/08/2024 00538 5 RxNorm React ion: unkno wn, unspe cifie d;; Not Available [facility] 4 00:59:27 56454 oxybutyni n chloride Not available other Not available Not available 03/08/2024 68212 RxNorm React ion: unkno wn, unspe cifie d;; Not Available [facility] 4 00:59:30 72082 trazodone medicatio n other Not available Not available 03/08/2024 80679 RxNorm React ion: unkno wn, unspe cifie d;; Not Available [facility] 4 00:59:33 52093 Premarin medicatio n other Not available Not available 03/08/202412482 6 RxNorm React ion: unkno wn, unspe cifie d;; Not Available [facility] 4 00:59:36 93516 penicilli n V potassium medicatio n other Not available Not available 03/08/202475725 5 RxNorm React ion: unkno wn, unspe cifie d;; Not Available [facility] 4 00:59:41 63211 morphine medicatio n other Not available Not available 03/08/2024 7052 RxNorm React ion: unkno wn, unspe cifie d;; Not Available [facility] 4 00:59:45 53612 Actos medicatio n other Not available Not available 03/08/2024 86498 2 RxNorm React ion: unkno wn, unspe cifie d;; Karyn sears [place] - [facility] 4 11:48:39 28620 erythromy char ethylsucc inate medicatio n other Not available Not available 03/08/2024 4056 RxNorm React ion: unkno wn, unspe cifie d;; Not Available [facility] 4 00:59:54 Medications Name Sig Start Date Stop Date Status Note LastModified by Organization Details LastModified Time doxycycli ne hyclate 100 mg capsule TAKE ONE CAPSULE BY MOUTH TWICE A DAY FOR 10 DAYS 04/11 completed Not Available Not Available Not Available polyethyl rupesh glycol 3350 17 gram oral powder packet 11/28 completed Medicati on ID: [id number] B rand Name: polyethy carlton glycol 3350 [...] release 24 hr active Medicati on ID: 056555 B rand Name: metoprol ol succinat e Send Method: E-Prescr ibed Sub s Allowed: subs OK Medic ationGen ericName : metoprol ol succinat e Not Available Not Available Not Available clotrimaz ole-betam ethasone 1 %-0.05 % lotion Apply a small amount three times a day as directed 04/11 completed Medicati on ID: 295620 D uration Value: 14 Brand Name: clotrima zole-bet amethaso ne Send Method: E-Prescr ibed Sub s Allowed: subs OK Speci al Instruct ion: Apply with finger to ear canal skin. Me dication GenericN pushpa: clotrima zole-bet amethaso ne Medic ation ID: [id number] D uration Value: 14 Brand Name: clotrima [...] eye drops 08/11 completed Medicati on ID: 553050 B rand Name: ketorola c Send Method: [...] one acetate 1 % eye drops,sylvia pension 10/17 /2022 completed Medicati on ID: 244327 B rand Name: predniso lone acetate Send [...] layed release 11/28 completed Medicati on ID: 636653 B rand Name: pantopra zole Sen d Method: E-Prescr ibed Sub s Allowed: subs OK Medic ationGen ericName : pantopra zole Not Available Not Available Not Available Cipro 500 mg tablet 1 tablet by mouth 04/11 completed Medicati on ID: [id number] D uration Value: 7 Prescri bed By Name: TAMAR Knight nd Name: Cipro Se nd Method: E-Prescr ibed Sub s Allowed: subs OK Medic ationGen ericName : Cipro Me dication ID: [id number] D uration Value: 7 Prescri bed By Name: TAMAR Knight nd Name: Cipro Se nd Method: E-Prescr ibed Sub s Allowed: subs OK Medic ationGen ericName : Cipro Not Available Not Available Not Available clotrimaz ole-betam ethasone 1 %-0.05 % topical cream Apply 1 a small amount twice a day 04/11 completed Medicati on ID: 178435 D uration Value: 14 Brand Name: clotrima zole-bet amethaso ne Send Method: E-Prescr ibed Sub s Allowed: subs OK Speci al Instruct ion: Apply with fingerti p to external ear BID x 2 weeks Me dication GenericN pushpa: clotrima zole-bet amethaso ne Medic ation ID: [id number] D uration Value: 14 Brand Name: clotrima [...] eye drops 08/11 completed Medicati on ID: [id number] B rand Name: brimonid ine Send Method: E-Prescr ibed Sub s Allowed: subs OK Medic ationGen ericName : brimonid ine Not Available Not Available Not Available clotrimaz ole 1 % topical solution Apply 04/11 completed Medicati on ID: [id number] D uration Value: 14 Brand Name: clotrima zole Sen d Method: E-Prescr ibed Sub s Allowed: subs OK Speci al Instruct ion: 4 drops to the right ear BID x 2 weeks Me dication GenericN pushpa: clotrima zole Med ication ID: [id number] D uration Value: 14 Brand Name: clotrima zole Sen d Method: E-Prescr ibed Sub s Allowed: subs OK Speci al Instruct ion: 4 drops to the right ear BID x 2 weeks Me dication GenericN pushpa: clotrima zole Not Available Not Available Not Available betametha sone dipropion ate 0.05 % topical cream 1 a small amount 11/28 completed Medicati on ID: [id number] D uration Value: 14 Prescri bed By [...] elayed release 11/20 completed Medicati on ID: [id number] D uration Value: 30 Brand Name: omeprazo [...] mg tablet 11/20 completed Medicati on ID: [id number] D uration Value: 90 Brand Name: hydrochl [...] mg capsule 08/11 completed Medicati on ID: 563130 B rand Name: celecoxi b Send Method: [...] to skin 11/28 completed Medicati on ID: 664749 D uration Value: 14 Prescri bed By Name: TAMAR Knight nd Name: clotricarlos zole Sen d Method: E-Prescr ibed Sub s Allowed: subs OK Speci al Instruct ion: to external ears [facility]: clotrima zole Not Available Not Available Not Available loratadin e 10 mg tablet TAKE ONE TO TWO TABLETS BY MOUTH EVERY MORNING active Not Available Not Available No t Available naproxen 500 mg tablet 11/20 completed Medicati on ID: [id number] D uration Value: 90 Brand Name: naproxen Send Method: E-Prescr ibed Sub s Allowed: subs OK Speci al Instruct ion: TK 1 T PO BID Medi cationGe nericNam e: naproxen Not Available Not Available Not Available TobraDex 0.3 %-0.1 % eye drops,sylvia pension 08/09 completed Medicati on ID: [id number] D uration Value: 14 Prescri bed By Name: Estrellita galvez MD Brand Name: TobraDex Send Method: E-Prescr ibed Sub s Allowed: subs OK Speci al Instruct ion: Instill 4 drops in the right ear BID for 14 days [facility] me: TobraDex Not Available Not Available Not Available Mapap Arthritis Pain 650 mg tablet,ex tended release 11/28 completed Medicati on ID: [id number] D uration Value: 30 Brand Name: Mapap [...] 2 drop 04/11 completed Medicati on ID: [id number] D uration Value: 30 Brand Name: DermOtic Oil Send Method: E-Prescr ibed Sub s Allowed: subs OK Speci al Instruct ion: as needed for itching Medicati onGeneri cName: DermOtic Oil Medi cation ID: [id number] D uration Value: 30 Brand Name: DermOtic [...] mcg tablet 08/11 completed Medicati on ID: [id number] D uration Value: 90 Brand Name: Adults [...] mcg tablet 08/11 completed Medicati on ID: [id number] B rand Name: Daily-Vi te (with folic acid) Se nd Method: E-Prescr ibed Sub s Allowed: subs OK Medic ationGen ericName : Daily-Vi te (with folic acid) Not Available Not Available Not Available Astepro Allergy 205.5 mcg (0.15 %) nasal spray [place] 1 spray into both nostrils twice a day 01/10 completed Medicati on ID: [id number] P rescribe d By Name: Geoff Jones nd Name: Astepro Allergy Send Method: E-Prescr ibed Sub s Allowed: subs OK Medic ationGen ericName : Astepro Allergy Not Available Not Available Not Available Vitals Date Recorded Body height Body weight Provider Name and Address Organization Details Last Updated DateTime 02/08/2025 151.13 cm 61542.93 g Michelle Zamarripa [place] - [facility] 02/08/2025 10:54:15 Social History None recorded. Functional Status None recorded. Mental Status None recorded. Family History Nothing Reported. Medical History No medical history recorded. Gynecological HistoryNo gynecological history recorded. Obstetrics History GPAL:G 0 P 0 0 0 0 Past Encounters Encounter ID Performer Location Encounter Start Date Encounter Closed Date Diagnosis/Indication Diagnosis SNOMED-CT Code Diagnosis ICD10 Code Diagnosis Note [id number] CURTIS DENNIS MD [facility] [address] [address] 02/08/2025 10:50:02 02/08/2025 11:22:53 Chronic otitis externa 18645680 H60.61 Health Concerns Section Related Observation LastModified by Organization Detai ls LastModified Time None Recorded Concern Status LastModified by Organization Details LastModified Time None Recorded Payers Encounter Date Sequence Insurance Name Policy Number Policy Ahuja Covered Member ID Ahuja Member ID Guarantor Name 02/08/2025 1 [place] [employer] Sarah Kemp [id number] Sarah Kemp 02/08/2025 2 MEDICAID-[place]: [facility] Sarah Kemp [id number] Sarah Kemp Notes Date Note Type Note Provider Name and Address Organization Details Recorded Time 02/08/2025 text/html 69yo female here for otologic evaluation.She deferred audiogram today - says she does not want to address this at this time.Prior history of fungal infection in the right ear.Wants it rechecked today: She denies any change in hearing, otorrhea, dizziness, vertigo, otalgia, otologic surgeries. CURTIS DENNIS MD [address] [place] [address], [address], [place] - [facility] 02/08/2025 13:51:50 OBGyn Episode No OBEpisode recorded.
--- OUTSIDE RECORDS SUMMARY | 2025-02-09 09:27 | XMS_ITS | Encounter Summary ---
Author Organization [facility] Address [address] [place] [address] Care Team Providers Care Refinery Pipeline Operator Name Role Phone Mandie Johnston MD Primary Care Provider [facility], Pcp [facility] Encounter Details Date Type Department Care Team Description 05/29/2021 Orders Only Gastroenterology - [place] [address] [facility] [address] [place] [address] Shaka Brown MD [address] [place] [address] Early satiety Social History Tobacco Use Types [...] satiety documented in this encounter Care Teams Refinery Pipeline Operator Relationship Specialty Start Date End Date Mandie Johnston MD PCP - General Internal Medicine 11/17/1803/[facility], [facility]cp PCP - General Internal Medicine 03/09/23 documented as of this encounter
--- OUTSIDE RECORDS SUMMARY | 2025-02-09 09:28 | XMS_ITS | Clinical Summary ---
Author Organization [facility] Address [address] [place] [address] Care Team Providers Care Stevedoring Superintendent Name Role Phone Mandie Mckenzie MD Primary Care Provider [phone] Surgical History Surgery Date Site/Laterality Comments BREAST BIOPSY Bilateral PROCEDURE: BX BREAST; PERC NEEDLE CORE W/IMAG GUID; COMMENT: 2 on left breast 1 left side neg BREAST SURGERY PROCEDURE: NJ UNLISTED PROCEDURE BREAST; COMMENT: bilateral breast reduction x 2 1984 &2006 OTHER SURGICAL HISTORY 07/18/2015 Right PROCEDURE: NJ EXCISION NAIL MATRIX PERMANENT REMOVAL; COMMENT: partial matrixectomy by Dr. Brandt OTHER SURGICAL HISTORY 07/24/2017 Left PROCEDURE: NJ EXCISION NAIL MATRIX PERMANENT REMOVAL; COMMENT: partial matrixectomy medial and lateral borders by Dr. Galo OTHER SURGICAL HISTORY 07/24/2017 Left PROCEDURE: NJ EXCISION NAIL MATRIX PERMANENT REMOVAL; COMMENT: partial [...] season) 2024 09/16/2021, 03/15/2021, 02/22/2021 Influenza Vaccine (Season Ended) 2025 08/26/2022, 08/10/2021, 07/06/2020, Additional history exists DTaP,Tdap,and Td [...] age to complete this topic Meningococcal B Vaccine Aged Out No l onger eligible based on patient's age to complete [...] should be classified as having osteoporosis. [facility] Department of Internal Medicine recommends [...] Kemp should beclassified as having osteoporosis. [facility] Department of Internal Medicine recommendsusing [...] Recently Relevant to Health Maintenance Care Teams Stevedoring Superintendent Relationship Specialty Start Date End Date Mandie Mckenzie MD PCP - General Internal Medicine 11/17/18
--- OUTSIDE RECORDS SUMMARY | 2025-02-09 09:28 | XMS_ITS | Encounter Summary ---
Author Organization [facility] Address [address] [place] [address] Care Team Providers Care Clinical Academic Allergist Name Role Phone Mandie Johnston MD Primary [facility] Provider [facility], Pcp Primary Care Provider [facility] e Reason for Visit * Reason Onset Date Comments medication problems 03/11/2019 Encounter Details Date Type Department Care Team Description 03/11/2019 Telephone Adult Med - [place] [address] [place] [address] Mandie Johnston MD medication problems Social History [...] on filedocumented in this encounter Care Teams Clinical Academic Allergist Relationship Specialty Start Date End Date Mandie Johnsotn MD PCP - General Internal Medicine 11/17/1803/08 [facility], Pcp PCP - General Internal Medicine 03/09/23 documented as of this encounter
--- OUTSIDE RECORDS SUMMARY | 2025-02-09 09:28 | XMS_ITS | Encounter Summary ---
Author Organization [facility] Address [address] [place] [address] Care Team Providers Care Associate Professor Of Literature Name Role Phone Mandie Johnston MD Primary Care Provider [facility], Pcp Primary Care Provider [facility] e Encounter Details Date Type Department Care Team Description 07/28/2019 [facility] Medical Records [address] [place] [id number] Abstract, Provider Social History Tobacco Use Types [...] on filedocumented in this encounter Care Teams Associate Professor Of Literature Relationship Specialty Start Date End Date Mandie Johnston MD PCP - General Internal Medicine 11/17/1803/08 [facility], Pcp PCP - General Internal Medicine 03/09/23 documented as of this encounter
--- OUTSIDE RECORDS SUMMARY | 2025-02-09 09:28 | XMS_ITS | Encounter Summary ---
Author Organization [facility] Address [address] [place] [address] Care Team Providers Care Warehouse Insulation Worker Name Role Phone Mandie Johnston MD [facility] Primary Care Provider Unavailabl e Reason for Visit * Reason Onset Date Comments Appointment Cancelled 04/11/2019 Encounter Details Date Type Department Care Team Description 04/11/2019 Telephone Gastroenterology - [address] [place] [address] Denice Chan MD Appointment Cancelled Social History Tobacco Use Types Packs/Day Years Used Date Smoking Tobacco: Former Cigarettes Q uit: 1989 Smokeless Tobacco: Never Sex Assigned at Date Recorded Female 02/12/2021 1:04 PM E DT documented as of this encounter Miscellaneous Notes * Telephone Encounter - Julia Valladares - 04/11/2019 9:53 AM EDT Pt called to cancel colon with Dr. Coffey. She states she would like to have a new provider. documented in this encounter Plan of Treatment Not on file documented as of this encounter Visit Diagnoses Not on filedocumented in this encounter Care Teams Warehouse Insulation Worker Relationship Specialty Start Date End Date Mandie Johnston MD PCP - General Internal Medicine 11/17/1803/08 [facility], Pcp PCP - General Internal Medicine 03/09/23 documented as of this encounter
--- OUTSIDE RECORDS SUMMARY | 2025-02-09 09:28 | XMS_ITS | Encounter Summary ---
Author Organization [facility] Address [address] [place] [address] Care Team Providers Care Clinical Resource Director Name Role Phone Mandie Johnston MD Primary Care Provider [facility], Pcp Primary Care Provider [facility] Encounter Details Date Type Department Care Team Description 04/03/2020 Pt. Non Urgent Medical Question Adult Medicine B - [address] [address] Mandie Johnston MD Social History Tobacco Use Types Packs/Day Years Used Date Smoking Tobacco: Former Cigarettes Q uit: 1989 Smokeless Tobacco: Never Alcohol Use Standard Drinks/Week Comments No 0 (1 standard drink = 0.6 oz pur e alcohol) Sex Assigned at Date Recorded Female 02/12/2021 1:04 PM E DT documented as of this encounter Progress Notes * Quynh Michael M.A. - 04/03/2020 8:51 AM EDTFrom: Sarah Kemp To: Mandie Mckenzie MD Sent: 04/03/2020 8:50 AM EDT Subject: need a refill for Vit.D3 2,000 cap.once daily. I need a refill on my Vitamin D3 2,000 .I do not understand why it is not in mine refill chart.I have been taking this everyday for over a year, so it should be in my chart. I would appreciate it if you can send a refill for me today. documented in this encounter Plan of Treatment Not on file documented as of this encounter Visit Diagnoses Not on filedocumented in this encounter Care Teams Clinical Resource Director Relationship Specialty Start Date End Date Mandie Johnston MD PCP - General Internal Medicine 11/17/1803/08 [facility], Pcp PCP - General Internal Medicine 03/09/23 documented as of this encounter
--- OUTSIDE RECORDS SUMMARY | 2025-02-09 09:28 | XMS_ITS | Encounter Summary ---
Author Organization [facility] Address [address] [place] [address] Care Team Providers Care Sales Review Clerk Name Role Phone Mandie Johnston MD Primary Care Provider [facility], Pcp Primary Care Provider [facility] e Encounter Details Date Type Department Care Team Description 03/29/2020 Magnetic Grinder Operator Report Medical Records [address] [place] [id number] Gastroenterology, [facility] Social History Tobacco Use Types Packs/Day Years [...] on filedocumented in this encounter Care Teams Sales Review Clerk Relationship Specialty Start Date End Date aMndie Johnston MD PCP - General Internal Medicine 11/17/1803/08 [facility], Pcp PCP - General Internal Medicine 03/09/23 documented as of this encounter
--- OUTSIDE RECORDS SUMMARY | 2025-02-09 09:28 | XMS_ITS | Encounter Summary ---
Author Organization [facility] Address [address] [place] [address] Care Team Providers Care Iron Installer Name Role Phone Mandie Johnston MD Primary Care Provider [facility], Pcp [facility] Reason for Visit * Reason Comments E-prescribe Rx Request Encounter Details Date Type Department Care Team Description 03/17/2019 Refill Adult Medicine B - [address] [address] Mandie Johnston MD E-prescribe Rx Request Social [...] 59 01/04/2019 * Telephone Encounter - Urszula Fito - 03/17/2019 8:19 AM EDT Patient would [...] N/A Patients current insurance carrier is: [facility] / Plan: [facility] / Product Type: HMO [id number] documented in this encounter Plan of Treatment Not on file documented as of this encounter Visit Diagnoses Not on filedocumented in this encounter Care Teams Iron Installer Relationship Specialty Start Date End Date Mandie Johnston MD PCP - General Internal Medicine 11/17/1803/08 [facility] [address] [facility], Pcp PCP - General Internal Medicine 03/09/23 documented as of this encounter
--- OUTSIDE RECORDS SUMMARY | 2025-02-09 09:28 | XMS_ITS | Encounter Summary ---
Author Organization [facility] Address [address] [place] [address] Care Team Providers Care Retail Team Member Name Role Phone Mandie Johnston MD Primary Care Provider [facility], Pcp Primary Care Provider [facility] e Encounter Details Date Type Department Care Team Description [facility]/30[facility] [address] [place] [address] Md Adelia Social History Tobacco Use Types [...] on filedocumented in this encounter Care Teams Retail Team Member Relationship Specialty Start Date End Date Mandie Johnston MD PCP - General Internal Medicine 11/17/1803/08 [facility], Pcp PCP - General Internal Medicine 03/09/23 documented as of this encounter
--- OUTSIDE RECORDS SUMMARY | 2025-02-09 09:28 | XMS_ITS | Encounter Summary ---
Author Organization [facility] Address [address] [place] [address] Care Team Providers Care Clinical Laboratory Aides Teacher Name Role Phone Mandie Johnston MD Primary Care Provider [facility], Pcp [facility] Encounter Details Date Type Department Care Team Description 05/02/2020 Grinder Hardboard Report Medical Records [address] [place] [address] Kortney Figueredo PA-C Social History Tobacco Use [...] filedocumented in this encounter Care Teams Clinical Laboratory Aides Teacher Relationship Specialty Start Date End Date Mandie Johnston MD PCP - General Internal Medicine 11/17/1803/08 [facility], Pcp PCP - General Internal Medicine 03/09/23 documented as of this encounter
--- OUTSIDE RECORDS SUMMARY | 2025-02-09 09:28 | XMS_ITS | Encounter Summary ---
Author Organization [facility] Address [address] [place] [address] Care Team Providers Care Skin Grader Name Role Phone Mandie Johnston MD Primary Care Provider [facility], Pcp [facility] Reason for Visit * Reason Onset Date Comments Testing 06/17/2019 Encounter Details Date Type Department Care Team Description 06/17/2019 Pt. Non Urgent Medical Question Adult Medicine B - [address] [address] Filomena Naik PA-C [address] [place] [address] Social History Tobacco Use Types Packs/Day Years [...] [facility] documented in this encounter Plan of Treatment Not on file documented as of this encounter Visit Diagnoses Not on filedocumented in this encounter Care Teams Skin Grader Relationship Specialty Start Date End Date Mandie Johnston MD PCP - General Internal Medicine 11/17/1803/08 [facility], Pcp PCP - General Internal Medicine 03/09/23 documented as of this encounter
--- OUTSIDE RECORDS SUMMARY | 2025-02-09 09:28 | XMS_ITS | Encounter Summary ---
Author Organization [facility] Address [address] [place] [address] Care Team Providers Care Furniture Polisher Name Role Phone Mandie Johnston MD Primary Care Provider [facility], Pcp Primary Care Provider Unavailabl e Reason for Visit * Reason Onset Date Comments Mychart Rx Refill 12/22/2020 Encounter Details Date Type Department Care Team Description 12/22/2020 Refill Adult Medicine B - [address] [address] Mandie Johnston MD Mychart Rx Refill Social [...] on filedocumented in this encounter Care Teams Furniture Polisher Relationship Specialty Start Date End Date Mandie Johnston MD PCP - General Internal Medicine 11/17/1803/08 [facility], Pcp PCP - General Internal Medicine 03/09/23 documented as of this encounter
--- OUTSIDE RECORDS SUMMARY | 2025-02-09 09:28 | XMS_ITS | Encounter Summary ---
Author Organization [facility] Address [address] [place] [address] Care Team Providers Care Tobacco Curer Name Role Phone Mandie Johnston MD Primary Care Provider [facility], Pcp [facility] Encounter Details Date Type Department Care Team Description 02/23/2021 Refill Adult Medicine B - [address] [address] Chacha Mendoza PA-C [address] [place] [address] Social History Tobacco Use Types Packs/Day Years [...] on filedocumented in this encounter Care Teams Tobacco Curer Relationship Specialty Start Date End Date Mandie Johnston MD PCP - General Internal Medicine 11/17/1803/08 [facility], Pcp PCP - General Internal Medicine 03/09/23 documented as of this encounter
--- OUTSIDE RECORDS SUMMARY | 2025-02-09 09:28 | XMS_ITS | Encounter Summary ---
Author Organization [facility] Address [address] [place] [address] Care Team Providers Care Broom Worker Name Role Phone Mandie Johnston MD Primary Care Provider [facility], Pcp [facility] Encounter Details Date Type Department Care Team Description 06/27/2020 Inspector Balance Bridge Report Medical Records [address] [place] [address] Abiel Magdaleno MD Social History Tobacco Use Types Packs/Day [...] on filedocumented in this encounter Care Teams Broom Worker Relationship Specialty Start Date End Date Mandie Johnston MD PCP - General Internal Medicine 11/17/1803/08 [facility], Pcp PCP - General Internal Medicine 03/09/23 documented as of this encounter
--- OUTSIDE RECORDS SUMMARY | 2025-02-09 09:28 | XMS_ITS | Encounter Summary ---
Author Organization [facility] Address [address] [place] [address] Care Team Providers Care Head Housekeeper Name Role Phone Mandie Johnston MD [facility], Pcp Primary Care Provider [facility] e Encounter Details Date Type Department Care Team Description 10/05/2020 Pt. Non Urgent Medical Question Adult Medicine B - [address] [address] Mandie Johnston MD Social History Tobacco Use [...] on filedocumented in this encounter Care Teams Head Housekeeper Relationship Specialty Start Date End Date Mandie Johnston MD PCP - General Internal Medicine 11/17/1803/08 [facility] Pcp PCP - General Internal Medicine 03/09/23 documented as of this encounter
--- OUTSIDE RECORDS SUMMARY | 2025-02-09 09:28 | XMS_ITS | Encounter Summary ---
Author Organization [facility] Address [address] [place] [address] Care Team Providers Care Isotope Technician Name Role Phone Mandie Johnston MD Primary Care Provider [facility] Pcp Primary Care Provider [facility] Encounter Details Date Type Department Care Team Description 02/11/2021 Pt. Non Urgent Medical Question Adult Medicine B - [address] [address] Estrellita Naik PA-C [address] [place] [address] Social History Tobacco Use Types Packs/Day Years [...] on filedocumented in this encounter Care Teams Isotope Technician Relationship Specialty Start Date End Date Mandie Johnston MD PCP - General Internal Medicine 11/17/1803/08 [facility], Pcp PCP - General Internal Medicine 03/09/23 documented as of this encounter
== END ==
LOC: HO.CARD 08:44
PROVIDERS: Visit Provider Nurse Practitioner Family
DX: Z01.810 Encounter for preprocedural cardiovascular examination (principal); R07.89 Other chest pain; I48.91 Unspecified atrial fibrillation
CPT/HCPCS: 78452; 93017; A9500; J0280; J2785

== ENCOUNTER → 2025-02-09 08:49 | Outpatient (BNV) | payer MEDICARE, MEDICAID, SELFPAY | DX: I49.1 Atrial premature depolarization (principal); I49.3 Ventricular premature depolarization | CPT/HCPCS: 78452; 93016; 93018 ==

== ENCOUNTER 2025-05-19 12:46 | Outpatient (AMB) | payer MEDICARE, MEDICAID, SELFPAY ==
--- OUTSIDE RECORDS SUMMARY | 2025-05-19 12:49 | XMS_ITS | Data Portability ---
Author Organization [place] - [facility], Allergy Address [address] [address] Care Team Providers Care Seam Stay Stitcher Name Role Phone SIM ASHRAF Primary Care [...] schedule hearing exam in the near future. [email or web address] Not available 08/24/2024 14:23:03 02/08/2025 02/08/2025 1. [...] %-0.1 % ear drops,sylvia pension 2023 024 [email or web address] [address] [id number], [address] [facility], [place], [address], 02/08/2025 10:54:46 Patient TargetsNo targets recorded. Patient [...] Name and Address Organization Details Recorded Time Itching of skin 312872614 Active 2019 Pruritus , unspecif ied; Note: Date Diagnose d: 02/02/2020 10:14 AM (L29.9) Not Available [facility] 4 02:48:16 Eustachi an tube disorder 35479365 Active 2019 Other specifie d disorder s of Eustachi an tube, unspecif ied ear; Note: Date Diagnose d: 02/02/2020 10:14 AM (H69.80) Not Available [facility] 4 02:48:19 Otalgia of left ear 6358109026 Active 2019 Otalgia, left ear; Note: Date Diagnose d: 02/02/2020 10:13 AM (H92.02) Not Available [facility] 4 02:48:20 Sensorin eural hearing loss of bilatera l ears 913085677 Active 2019 Sensorin eural hearing loss, bilatera l; Note: Date Diagnose d: 06/27/2020 11:47 AM (H90.3) Not Available [facility] 4 02:48:18 Dysphoni a 69814738 Active 2020 Hoarsene ss; Note: Date Diagnose d: 03/29/2021 11:16 AM (R49.0) Not Available [facility] 4 02:48:21 Impacted cerumen of bilatera l ears 75699640728 69966 Active 2020 Impacted cerumen, bilatera l; Note: Date Diagnose d: 03/29/2021 11:16 AM (H61.23) Not Available [facility] 4 02:48:20 Referred otalgia 54668058 Active 2020 Otalgia secondar y to TMJ; Note: Date Diagnose d: 1 3:14 PM (388.72) Not Available [facility] 4 02:48:23 Diffuse otitis externa 32928893 Completed 202005/27/2024 Diffuse otitis externa, right ear; Note: Date Diagnose d: 1 8:32 AM (H60.311 ) Not Available [facility] 4 02:48:14 Chronic mycotic otitis externa 002315024 Active 2021 Chronic mycotic otitis externa; Note: Date Diagnose d: 2 11:18 AM (380.15) Not Available [facility] 4 02:48:14 Bilatera l diffuse otitis externa 42059640424 36584 Completed 202105/27/2024 Diffuse otitis externa, bilatera l; Note: Date Diagnose d: 2 11:19 AM (H60.313 ) Not Available [facility] 4 02:48:19 Superfic ial mycosis 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 Active 2021 Other specifie d superfic ial mycoses; Note: Date Diagnose d: 2 11:19 AM (B36.8) Not Available [facility] 4 02:48:14 Xerostom ia 52468412 Active 2021 Dry mouth, unspecif ied; Note: Date Diagnose d: 2 11:57 AM (R68.2) Not Available [facility] 4 02:48:22 Gastroes ophageal reflux disease without esophagi tis 590799916 Active 2021 Gastro-e sophagea l reflux disease without esophagi tis; Note: Date Diagnose d: 2 11:57 AM (K21.9) Not Available [facility] 4 02:48:22 Dysphagi a 09558060 Active 2021 Dysphagi a, unspecif ied; Note: Date Diagnose d: 02/27/2022 1:39 PM (R13.10) Not Available [facility] 4 02:48:18 Otorrhea of bilatera l ears 59569669403 16972 Active 2021 Otorrhea , bilatera l; Note: Date Diagnose d: 05/29/2022 10:56 AM (H92.13) Not Available [facility] 4 02:48:15 Candidal otitis externa 04800427 Active 2021 Candidal otitis externa; Location : right No te: Date Diagnose d: 08/11/20 1:12 PM (B37.84) Not Available [facility] 4 02:48:23 Bleeding from nose 146185720 Active 2022 Epistaxi s; Note: Date Diagnose d: 3 11:58 AM (R04.0) Not Available [facility] 4 02:48:21 Posterio r rhinorrh ea 99854354 Active 2022 Postnasa l drip; Note: Date Diagnose d: 3 11:58 AM (R09.82) Not Available [facility] 4 02:48:17 Otalgia of right ear 3514976177 Active 2022 Otalgia, right ear; Note: Date Diagnose d: 3 11:58 AM (H92.01) Not Available [facility] 4 02:48:17 Impacted cerumen in left ear 44348375965 Active 2022 Impacted cerumen, left ear; Note: Date Diagnose d: 3 1:27 PM (H61.22) Impact ed cerumen, left ear; Note: Date Diagnose d: 08/11/20 22 1:12 PM (H61.22) ; Start Date : 08/11/20 Not Available [facility] 4 02:48:20 Otorrhea of right ear 80102284730 40816 Active 2022 Otorrhea , right ear; Note: Date Diagnose d: 3 4:03 PM (H92.11) Not Available [facility] 4 02:48:19 Dizzines s and giddines s 326568852 Active 2022 Dizzines s and giddines s; Note: Date Diagnose d: 3 2:35 PM (R42) Not Available [facility] 4 02:48:16 Pain of left temporom andibula r joint 91693167021 370239 Active 2023 Arthralg ia of left temporom andibula r joint; Note: Date Diagnose d: 10/30/2023 1:26 PM (M26.622 ) Not Available [facility] 4 02:48:18 Acute serous otitis media of bilatera l ears 46830539258 98464 Active 2023 Acute serous otitis media, bilatera l; Note: Date Diagnose d: 4 1:10 PM (H65.03) Not Available [facility] 4 02:48:15 Cough 86288800 Active 2023 Cough, unspecif ied; Note: Changed from R05 to R05.9 (12/18/19 24 5:00 PM) , Date Diagnose d: 4 1:10 PM (R05) Not Available [facility] 4 02:48:16 Acute maxillar y sinusiti s 92462946 Active 2023 Acute maxillar y sinusiti s, unspecif ied; Note: Date Diagnose d: 4 1:10 PM (J01.00) Not Available [facility] 4 02:48:21 Allergic rhinitis caused by pollen 00842125 Active 2023 Allergic rhinitis due to pollen; Note: Date Diagnose d: 4 3:06 PM (J30.1) Not Available [facility] 4 02:48:22 Mixed conducti ve and sensorin eural hearing loss of right ear 04909584374 105 Active 2023 JENISE KNIGHT, AUD 100 [facility],[address], [facility], [address] , [place] - [facility] 4 12:20:06 Sensorin eural hearing loss 96899292 Active 2023 SANDIP PROCTOR 100 [facility] [place],[facility] [address], [place], [address] , [place] - [facility] 4 12:20:21 Pain of temporom andibula r joint 99988062 Active 2023 MARILYN ABDI PA-C 100 [facility] [place],[facility] [address], [place], [address] , [place] [facility] 4 13:13:26 Acute otitis externa 67596795 Active 2023 MARILYN ABDI PA-C 100 [facility] [place] [address], [place], [address] , [place] - [facility] 4 13:13:31 Bilatera l disorder of Eustachi an tubes 51130346780 02349 Active 2023 MARILYN ABDI PA-C 100 [facility] [place] [address], [place], [address] , [place] [facility] 4 14:24:03 Nasal congesti on 01407842 [facility] 2023 MARILYN ABDI PA-C 100 [facility] [place] [address], [place], [address] , [place] [facility] 4 14:24:07 Chronic otitis externa 00910222 Active 2024 CURTIS DENNIS MD 100 [facility] [place] [address], [place], [address] , [place] [facility] 5 13:51:45 Problem Notes None recorded. Procedures Surgical History Date Name Laterality Status Provider Name and Address Organization Details Recorded Time 02/09/20 25 otomicroscopy completed CURTIS DENNIS MD 100 [facility] [address], [place], [address], [place] - [facility] 02/08/2025 13:51:17 08/24/20 24 Cerumen removal without microscope bilat completed MARILYN ABDI PA-C 100 [facility],[address], [place], [address], [facility] - [facility] 08/24/2024 14:22:06 04/11/20 24 Comp Audio with Tymps - 80455 & 61516 completed SANDIP PROCTOR 100 [facility] [place],[address], [place], [address], [facility] 04/11/2024 12:19:43 Imaging Results None recorded. Procedure Notes None recorded. Medical Equipment None Reported. Allergies Allergen ID Allergen Name Allergen Category Reaction Reaction Severity Criticality Documentation Date Start Date Code Code System Note Provider Name and Address Organization Details Recorded Time 91216 meloxicam medicatio n other Not available Not available 03/08/2024 28994 RxNorm React ion: unkno wn, unspe cifie d;; Not Available [facility] 4 00:59:14 54667 estradiol medicatio n other Not available Not available 03/08/2024 4083 RxNorm React ion: unkno wn, unspe cifie d;; Not Available [facility] 4 00:59:15 61473 oxycodone medicatio n other Not available Not available 03/08/2024 7804 RxNorm React ion: unkno wn, unspe cifie d;; Not Available [facility] 4 00:59:16 81658 doxycycli ne Not available other Not available Not available 03/08/2024 3640 RxNorm React ion: unkno wn, unspe cifie d;; Not Available [facility] 4 00:59:17 35190 gabapenti n medicatio n other Not available Not available 03/08/2024 57471 RxNorm React ion: unkno wn, unspe cifie d;; Not Available [facility] 4 00:59:19 15676 Bactrim medicatio n other Not available Not available 03/08/2024 65750 9 RxNorm React ion: unkno wn, unspe cifie d;; Not Available [facility] 4 00:59:20 84184 amoxicill in medicatio n hives Not available Not available 03/08/2024 723 RxNorm React ion: skin rashe s, hives ;; Not Available [facility] 4 00:59:22 83442 azithromy char medicatio n other Not available Not available 03/08/2024 79592 RxNorm React ion: unkno wn, unspe cifie d;; Not Available [facility] 4 00:59:24 39445 Fosamax medicatio n other Not available Not available 03/08/2024 88019 5 RxNorm React ion: unkno wn, unspe cifie d;; Not Available [facility] 4 00:59:27 88312 oxybutyni n chloride Not available other Not available Not available 03/08/2024 10972 RxNorm React ion: unkno wn, unspe cifie d;; Not Available [facility] 4 00:59:30 83570 trazodone medicatio n other Not available Not available 03/08/2024 31897 RxNorm React ion: unkno wn, unspe cifie d;; Not Available [facility] 4 00:59:33 51603 Premarin medicatio n other Not available Not available 03/08/202462556 6 RxNorm React ion: unkno wn, unspe cifie d;; Not Available [facility] 4 00:59:36 83892 penicilli n V potassium medicatio n other Not available Not available 03/08/2024 44986 5 RxNorm React ion: unkno wn, unspe cifie d;; Not Available [facility] 4 00:59:41 80601 morphine medicatio n other Not available Not available 03/08/2024 7052 RxNorm React ion: unkno wn, unspe cifie d;; Not Available [facility] 4 00:59:45 56528 Actos medicatio n other Not available Not available 03/08/2024 28539 2 RxNorm React ion: unkno wn, unspe cifie d;; Karyn sears [place] - [facility] 4 11:48:39 40544 erythromy char ethylsucc inate medicatio n other Not available Not available 03/08/2024 4056 RxNorm React ion: unkno wn, unspe kavyae d;; Not Available [facility] 4 00:59:54 Medications Name Sig Start Date Stop Date Status Note LastModified by Organization Details LastModified Time doxycycli ne hyclate 100 mg capsule TAKE ONE CAPSULE BY MOUTH TWICE A DAY FOR 10 DAYS 04/11 completed Not Available Not Available Not Available polyethyl rupesh glycol 3350 17 gram oral powder packet 11/28 completed Medicati on ID: 720652 B rand Name: polyethy carlton glycol 3350 [...] release 24 hr active Medicati on ID: 631252 B rand Name: metoprol ol succinat e Send Method: E-Prescr ibed Sub s Allowed: subs OK Medic ationGen ericName : metoprol ol succinat e Not Available Not Available Not Available clotrimaz ole-betam ethasone 1 %-0.05 % lotion Apply a small amount three times a day as directed 04/11 completed Medicati on ID: 346315 D uration Value: 14 Brand Name: clotrima zole-bet amethaso ne Send Method: E-Prescr ibed Sub s Allowed: subs OK Speci al Instruct ion: Apply with finger to ear canal skin. Me dication GenericN pushpa: clotrima zole-bet amethaso ne Medic ation ID: [id number] D uration Value: 14 Brand Name: clotrima [...] eye drops 08/11 completed Medicati on ID: 099546 B rand Name: ketorola c Send Method: [...] drops,sylvia pension 08/11 completed Medicati on ID: 541657 B rand Name: predniso lone acetate Send [...] layed release 11/28 completed Medicati on ID: 596727 B rand Name: pantopra zole Sen d Method: E-Prescr ibed Sub s Allowed: subs OK Medic ationGen ericName : pantopra zole Not Available Not Available Not Available Cipro 500 mg tablet 1 tablet by mouth 04/11 completed Medicati on ID: [id number] D uration Value: 7 Prescri bed By Name: TAMAR Knight nd Name: Cipro Se nd Method: E-Prescr ibed Sub s Allowed: subs OK Medic ationGen ericName : Cipro Me dication ID: [id number] D uration Value: 7 Prescri bed By Name: TAMAR Knight nd Name: Cipro Se nd Method: E-Prescr ibed Sub s Allowed: subs OK Medic ationGen ericName : Cipro Not Available Not Available Not Available clotrimaz ole-betam ethasone 1 %-0.05 % topical cream Apply 1 a small amount twice a day 04/11 completed Medicati on ID: 246695 D uration Value: 14 Brand Name: clotrima zole-bet amethaso ne Send Method: E-Prescr ibed Sub s Allowed: subs OK Speci al Instruct ion: Apply with fingerti p to external ear BID x 2 weeks Me dication GenericN pushpa: clotrima zole-bet amethaso ne Medic ation ID: [id number] D uration Value: 14 Brand Name: clotrima [...] eye drops 08/11 completed Medicati on ID: 791090 B rand Name: brimonid ine Send Method: E-Prescr ibed Sub s Allowed: subs OK Medic ationGen ericName : brimonid ine Not Available Not Available Not Available clotrimaz ole 1 % topical solution Apply 04/11 completed Medicati on ID: [id number] D uration Value: 14 Brand Name: clotrima zole Sen d Method: E-Prescr ibed Sub s Allowed: subs OK Speci al Instruct ion: 4 drops to the right ear BID x 2 weeks Me dication GenericN pushpa: clotrima zole Med ication ID: [id number] D uration Value: 14 Brand Name: clotrima zole Sen d Method: E-Prescr ibed Sub s Allowed: subs OK Speci al Instruct ion: 4 drops to the right ear BID x 2 weeks Me dication GenericN pushpa: clotrima zole Not Available Not Available Not Available betametha sone dipropion ate 0.05 % topical cream 1 a small amount 11/28 completed Medicati on ID: [id number] D uration Value: 14 Prescri bed By [...] elayed release 11/20 completed Medicati on ID: [id number] D uration Value: 30 Brand Name: omeprazo [...] mg tablet 11/20 completed Medicati on ID: [id number] D uration Value: 90 Brand Name: hydrochl [...] mg capsule 08/11 completed Medicati on ID: [id number] B rand Name: donald calloway Send Method: [...] to skin 11/28 completed Medicati on ID: [id number] D uration Value: 14 Prescri bed By Name: TAMAR Knight nd Name: clotricarlos galvez Method: E-Prescr ibed Sub s Allowed: subs OK Speci al Instruct ion: to external ears Med icationG enericNa me: clotrima zole Not Available Not Available Not Available loratadin e 10 mg tablet TAKE ONE TO TWO TABLETS BY MOUTH EVERY MORNING active Not Available Not Available No t Available naproxen 500 mg tablet 11/20 completed Medicati on ID: [id number] D uration Value: 90 Brand Name: naproxen Send Method: E-Prescr ibed Sub s Allowed: subs OK Speci al Instruct ion: TK 1 T PO BID Medi cationGe nericNam e: naproxen Not Available Not Available Not Available TobraDex 0.3 %-0.1 % eye drops,sylvia pension 08/09 completed Medicati on ID: 647553 D uration Value: 14 Prescri bed By Name: Estrellita galvez MD Brand Name: TobraDex Send Method: E-Prescr ibed Sub s Allowed: subs OK Speci al Instruct ion: Instill 4 drops in the right ear BID for 14 days Med icationG enericNa me: TobraDex Not Available Not Available Not Available Mapap Arthritis Pain 650 mg tablet,ex tended release 11/28 completed Medicati on ID: [id number] D uration Value: 30 Brand Name: Eliz [...] 2 drop 04/11 completed Medicati on ID: [id number] D uration Value: 30 Brand Name: DermOtic Oil Send Method: E-Prescr ibed Sub s Allowed: subs OK Speci al Instruct ion: as needed for itching Medicati onGeneri cName: DermOtic Oil Medi cation ID: [id number] D uration Value: 30 Brand Name: DermOtic [...] mcg tablet 08/11 completed Medicati on ID: [id number] D uration Value: 90 Brand Name: Adults [...] mcg tablet 08/11 completed Medicati on ID: [id number] B rand Name: Daily-Vi te (with folic acid) Se nd Method: E-Prescr ibed Sub s Allowed: subs OK Medic ationGen ericName : Daily-Vi te (with folic acid) Not Available Not Available Not Available Astepro Allergy 205.5 mcg (0.15 %) nasal spray Harmon 1 spray into both nostrils twice a day 01/10 completed Medicati on ID: [id number] Honorio galvez By Name: Geoff Jones nd Name: Astepro Allergy Send Method: E-Prescr ibed Sub s Allowed: subs OK Medic ationGen ericName : Astepro Allergy Not Available Not Available Not Available Vitals Date Recorded Body height Body weight Provider Name and Address Organization Details Last Updated DateTime 02/08/2025 151.13 cm 70604.93 g Michelle Zamarripa [place] - [facility] 02/08/2025 10:54:15 Date Recorded Body height Body mass index (BMI) Body weight Provider Name and Address Organization Details Last Updated DateTime 04/11/2024 151.13 cm 27.8 kg/m2 21180.93 g Karyn Antonio [place] - [facility] 04/11/2024 11:48:18 Date Recorded Body height Body mass index (BMI) Body weight Provider Name and Address Organization Details Last Updated DateTime 08/24/2024 151.13 cm 27.8 kg/m2 22668.93 g Whitney Wood [place] - [facility] 08/24/2024 13:39:27 Social History None recorded. Functional Status None recorded. Mental Status None recorded. Family History Nothing Reported. Medical History No medical history recorded. Gynecological HistoryNo gynecological history recorded. Obstetrics History GPAL:G 0 P 0 0 0 0 Past Encounters Encounter ID Performer Location Encounter Start Date Encounter Closed Date Diagnosis/Indication Diagnosis SNOMED-CT Code Diagnosis ICD10 Code Diagnosis Note [id number] MARILYN ABDI PA-C [facility] [address] [address] 04/11/2024 11:30:47 04/11/2024 12:33:15 Otalgia of right ear 8223286624 H92.01 Pain of temporomandibular joint 77084422 M26.629 Acute otitis externa 302 95868 H60.509 [id number] SANDIP PROCTOR [facility] [address] [address] 04/11/2024 12:19:13 04/12/2024 12:46:23 Mixed conductive and sensorineural hearing loss of right ear 5486942696 9105 H90.A31 Sensorineu ral hearing loss 26265709 H90.A22 Audiologic al evaluation results: Right ear: Mild sloping to severe mixed hearing loss with excellent word recognitio n. Left ear: Mild sloping to severe sensorineu ral hearing loss with excellent word recognitio n. Tympanomet ry: Right Ear:[place] [id number] MARILYN ABDI PA-C [facility] [address] [address] 08/24/2024 13:15:02 08/24/2024 14:13:43 Bilateral disorder of Eustachian tubes 4823032201 289089 H69.93 Nasal congestion 6816342 0 R09.81 [id number] CURTIS DENNIS MD [facility] [address] [address] 02/08/2025 10:50:02 02/08/2025 11:22:53 Chronic otitis externa 70349784 H60.61 Health Concerns Section Related Observation LastModified by Organization Detai ls LastModified Time None Recorded Concern Status LastModified by Organization Details LastModified Time None Recorded Advance Directives Directive None Recorded Payers Insurance Date Sequence Insurance Name Policy Number Policy Ahuja Covered Member ID Ahuja Member ID Guarantor Name 02/08/2025 1 MEDICARE B-[place]: [facility] [employer] Sarah Kemp [id number] Sarah Kemp 02/08/2025 2 [place] [facility] Sarah Kemp [id number] Sarah Kemp Notes Date Note Type Note Provider Name and Address Organization Details Recorded Time 04/11/2024 text/html ROS as noted in the HPI 68-year-old female with history of sensorineural hearing loss presents for evaluation of right-sided ear pain. Patient states that on Thursday she woke with stabbing right-sided ear pain and a sensation of muffled hearing. She has had no drainage from the ear. The other side is unaffected. AMBROCIO ARITA MD [address] [place] [address],[address], [address], [facility] - [facility] 04/11/2024 16:59:59 08/24/2024 text/html ROS as noted in the HPI 68-year-old female presents for cerumen. Has been having more postnasal drip and nasal congestion which she feels is affecting her ears causing ear fullness. Cannot use Flonase due to glaucoma. DMITRY WILBURN MD [address] [place] [address],[address], [address], [facility] 08/25/2024 08:54:43 02/08/2025 text/html ROS as noted in the HPI 69yo female here for otologic evaluation.She deferred audiogram today - says she does not want to address this at this time.Prior history of fungal infection in the right ear.Wants it rechecked today: She denies any change in hearing, otorrhea, dizziness, vertigo, otalgia, otologic surgeries. CURTIS DENNIS MD [address] [place] [address],[address], [address], [facility] - [facility] 02/08/2025 13:51:50 OBGyn Episode No OBEpisode recorded.
--- OUTSIDE RECORDS SUMMARY | 2025-05-19 12:49 | XMS_ITS | Clinical Summary ---
[facility] Address [address] [place] [address] Care Team Providers Care Senior Lead Java Developer Name Role Phone Mandie Mckenzie MD Primary Care Provider [phone] Surgical History Surgery Date Site/Laterality Comments BREAST BIOPSY Bilateral PROCEDURE: BX BREAST; PERC NEEDLE CORE W/IMAG GUID; COMMENT: 2 on left breast 1 left side neg BREAST SURGERY PROCEDURE: NM UNLISTED PROCEDURE BREAST; COMMENT: bilateral breast reduction x 2 1984 &2006 OTHER SURGICAL HISTORY 07/18/2015 Right PROCEDURE: NM EXCISION NAIL MATRIX PERMANENT REMOVAL; COMMENT: partial matrixectomy by Dr. Brandt OTHER SURGICAL HISTORY 07/24/2017 Left PROCEDURE: NM EXCISION NAIL MATRIX PERMANENT REMOVAL; COMMENT: partial matrixectomy medial and lateral borders by Dr. Galo OTHER SURGICAL HISTORY 07/24/2017 Left PROCEDURE: NM EXCISION NAIL MATRIX PERMANENT REMOVAL; COMMENT: partial [...] Panel) 09/23/2022 Colorectal Cancer Screening: Colonoscopy 09/23/2022 Falls Risk Assessment 09/23/2022 Hepatitis C Screening 09/23/2022 Social Influencers of Health Screening 09/23/2022 Hypertension/CHF/CAD Annual BMP Blood Test 10/05/2022 COVID-19 Vaccine ( season) 2024 09/16/2021, 03/15/2021, 02/22/2021 Depression Screening 10/26/2024 Influenza Vaccine (#1) 2025 2, 08/10/2021, 07/06/2020, Additional history exists DTaP,Tdap,and [...] Narrative 06/20/2019 2:16 PM EDT BONE DENSITY Lumbar Spine T-score is -2.4 [...] should be classified as having osteoporosis. The [facility] Department of Internal Medicine recommends [...] Kemp should beclassified as having osteoporosis. The [facility] Department of Internal Medicine recommendsusing [...] by FRAX. Filomena ARRIAGA IMG DXA PROCEDURES Final Resu [...] compared to the previous mammogram of 01/26/2018. The breasts are composed of fatty and fibroglandular tissue. No suspicious mass, architectural distortion or suspicious calcifications [...] High (>20%) Filomena ARRIAGA IMG XR PROCEDURES Final Resul t from Last 3 Months or Most Recently Relevant to Health Maintenance Care Teams Senior Lead Java Developer Relationship Specialty Start Date End Date Mandie Mckenzie MD PCP - General Internal Medicine 11/17/18
--- OUTSIDE RECORDS SUMMARY | 2025-05-19 12:49 | XMS_ITS ---
Author Name [facility] Organization Unknown Care Team Organization Name Specialty Phone Email Start Date End Da antonette [facility] Mandie Mckenzie Primary Care 09/02/2022 4
--- NOTE | 2025-05-19 12:58 | MHC.OFFVIS ---
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 acidoph-L. plantar-L. rhamn 1 billion cell (Probiotic Pearls Women's) caps PO lansoprazole 30 mg PO DAILY loratadine (Allergy Relief (loratadine)) 10 mg PO DAILY metoprolol succinate ER 25 mg PO DAILY omega 2-knj-kdm-fish oil 1,200 (144-216) mg (Fish Oil) caps PO ondansetron HCl 4 mg PO Q8H polyethylene glycol 3350 (Miralax) 17 grams PO DAILY simethicone (Gas Relief (simethicone)) 125 mg PO BID-QID PRN HPI HPI Follow up after testing: Details: Sarah is a 69-year-old female with past medical history of osteoarthritis, remote smoking, sleep apnea with CPAP use, paroxysmal atrial fibrillation status post cardioversion x2, last 08/2023 and maintained on flecainide who recently underwent total knee replacement surgery without any known cardiac complication. She now presents for follow-up. Today she reports that she has been generally doing well. She reports having some shortness of breath when climbing the stairs once recently. She admits to having lots of allergies and has issues with nasal congestion and intermittent coughing. She does not have any lung issues that she is aware of. No chest discomfort at rest or with activity. No heart palpitations, lightheadedness, presyncope, syncope, falls. No bleeding issues with Eliquis use. Left knee has been doing well but she missed therapy for 3 weeks due to lack of transportation and now she is having increased swelling and decreased mobility. She has follow-up with her orthopedic surgeon next week. Ambulates steady with a cane. [facility] Medical History Sleep apnea Atrial fibrillation Surgical History Total knee replacement status History of cardioversion Family History Father Eye cancer CHF (congestive heart failure) Mother DM2 (diabetes mellitus, type 2) Enlarged heart CHF (congestive heart failure) Social History Alcohol intake: former Patient Tobacco Use Status: Never used Tobacco Review of Systems ENT Reports dizziness Card Denies chest pain, Denies chest pain at rest, Denies chest pain with activity, Denies rapid heart rate, Denies pedal edema, Denies edema, Denies leg edema, Denies lightheadedness, Denies palpitations, Denies dyspnea, Denies dyspnea on exertion and Denies orthopnea Resp Denies cough, Denies dyspnea and Denies dyspnea on exertion GI Denies hematochezia and Denies change in stool character Musc Denies abnormal gait, Reports limited range of motion, Reports muscle cramps, Denies muscle weakness, Denies numbness, Denies radiating pain into limb, Denies stiffness and Denies tingling Neuro Denies Abnormal speech present, Denies abnormal gait, Reports dizziness, Denies numbness and Denies tingling Endo Denies palpitations Physical Exam Vital Signs: BMI result Body Mass Index 27.6 Const General: cooperative, healthy appearing, comfortable and no acute distress Orientation/consciousness: patient oriented x3 Neck Neck: Yes normal visual inspection and Yes no JVD Resp Effort & Inspection: normal respiratory effort Auscultation: clear to auscultation bilaterally, no rales, no rhonchi and no wheezes Cardio Rate: regular rate Rhythm: regular rhythm Heart sounds: S1 normal heart sound present, S2 normal heart sound present, no gallops, no murmurs and no rubs Neuro General: patient oriented x3 Speech: No Abnormal speech present Extrem General: Yes normal to inspection and No no pedal edema Psych Appearance: grossly normal Mental Status: mental status grossly normal Speech and movement: Normal speech and movement present Assessment & Plan Assessment & Plan (1) Atrial fibrillation: Code(s): I48.91 - Unspecified atrial fibrillation Category: Medical Plan: History of paroxysmal atrial fibrillation with 2 cardioversions in the past, currently suppressed with flecainide and metoprolol. She is on Eliquis for anticoagulation. Previously followed by Dr. Wild. EKG done today shows normal sinus rhythm rate 90, QTC 413 milliseconds. Echo 01/27/2025 showed EF 70%, no valve or wall motion abnormalities, atria normal size. Will continue current med management without change. (2) Tightness in chest: Code(s): R07.89 - Other chest pain Category: Medical Plan: Prior reports of random chest tightness, which has since resolved. Cardiac risks of age, borderline diabetes, borderline hyperlipidemia, remote smoking. EKG last visit did not show ischemic findings. Pharmacological nuclear stress test done 02/09/2025 shows normal myocardial perfusion imaging. Continue with risk factor modification. Signs and symptoms of angina reviewed with her. (3) Sleep apnea: Code(s): G47.30 - Sleep apnea, unspecified Category: Medical Plan: Known history of sleep apnea with CPAP use. She reports compliance of at least 4 hours each night. Plan Time spent on chart review, documentation, interview and assessment Coding Level of Care Code Est Pt Level 3 (74565) Complex EM visit Add On G2211 Diagnoses Atrial fibrillation I48.91 Tightness in chest R07.89 Sleep apnea G47.30 Time Spent (min) 24
[2025-05-19 12:59] VITALS: BP 118/72; PULSE 90; BMI 27.6
== END 2025-05-19 13:37 | disposition home or self-care (01) ==
LOC: HO.HCS 12:47
PROVIDERS: Visit Provider Nurse Practitioner Family
DX: I48.91 Unspecified atrial fibrillation (principal); R07.89 Other chest pain; G47.30 Sleep apnea, unspecified
CPT/HCPCS: 93010; 99213; G2211

== ENCOUNTER → 2025-05-19 12:46 | Outpatient (BNVA) | payer MEDICARE, MEDICAID, SELFPAY | PROVIDERS: Visit Provider Nurse Practitioner Family | DX: I48.91 Unspecified atrial fibrillation (principal); G47.30 Sleep apnea, unspecified; R07.89 Other chest pain | CPT/HCPCS: 93005; 99212 ==

== ENCOUNTER 2025-08-17 14:27 | Outpatient (AMB) | payer MEDICARE, MEDICAID, SELFPAY ==
[2025-08-17 14:30] VITALS: BP 140/80; PULSE 56; O2SAT 98; BMI 29.3
--- NOTE | 2025-08-17 14:30 | MHC.OFFVIS ---
Vital Signs 08/17/25 14:30 Height 4 ft 11.5 in Weight 147 lb 7 oz BMI 29.3 BP 140/80 H Blood Pressure Location Rt brachial Position Sitting Pulse 56 Pulse Source Pulse Oximeter Pulse Oximetry (%) 98 Oxygen Delivery Method Room Air Intake Visit Reasons: 3 holly fletcher/ryder/ approved Intake Note: Patient presents for follow up on osteoporosis and arthritis. Accompanied by: Daughter Allergies NSAIDS (Non-Steroidal Anti-Inflamma Allergy (Mild, Verified 08/17/25 14:32) Due to flecinde, and Eliquis HPI HPI 3 holly fletcher/ryder/ approved: Details: Patient is accompanied with her daughter. She has been experiencing pain bilateral wrists for a few months. She has brace at home but does not use it. [facility] Medical History Sleep apnea Atrial fibrillation Surgical History Total knee replacement status History of cardioversion Family History Father Eye cancer CHF (congestive heart failure) Mother DM2 (diabetes mellitus, type 2) Enlarged heart CHF (congestive heart failure) Social History Alcohol intake: former Patient Tobacco Use Status: Never used Tobacco Physical Exam Exam Exam: General: Comfortable Skin: No lesions seen MSK: Vital Signs: Last Vital Signs Pulse 56 08/17/25 14:30 BP 140/80 H 08/17/25 14:30 Pulse Ox 98 08/17/25 14:30 Oxygen Delivery Method Room Air 08/17/25 14:30 BMI result Body Mass Index 29.3 Const Other: General: Comfortable Skin: No lesions seen MSK: Tender to palpate bilateral CMCs with squaring. 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 Office Procedures AMB Joint Injection/Aspiration Joint Injection/Aspiration Details: Bilateral CMC joint Prep: site was prepped using aseptic technique Injected into each site: 10 mg of, Kenalog, with 0.25 mL of and 1% plain lidocaine Procedure: Informed verbal consent was obtained. The patient tolerated the procedure well. Postprocedure protocol was discussed with patient. Coding - Small Joint Procedure code (CPT) selection complete AMB Joint Injection/Aspiration Coding - Small Joint Procedure code (CPT) selection complete Office Meds lidocaine (PF) 10 mg/mL (1 %) injection solution Performing Provider: Marshall Stephenson MD Performing Location: [facility] Administered by: Shaina Tyler RN on 08/17/25 15:33 Dose Route Admin Location Dispensed Lot Number Expiration Date ND Cab Starter 0.25 mL Infiltration 2 mL [id number] 03/25/27 12596-720-32 [employer] Total Dispensed Waste 2 mL 87.5 % Kenalog 40 mg/mL suspension for injection Performing Provider: Marshall Stephenson MD Performing Location: [facility] Administered by: Shaina Tyler RN on 08/17/25 15:33 Dose Route Admin Location Dispensed Lot Number Expiration Date [facility] Cab Starter 10 mg intra-articular 1 mL [id number] 04/24/27 [address]-0 [employer] Total Dispensed Waste 1 mL 75 % lidocaine (PF) 10 mg/mL (1 %) injection solution Performing Provider: Marshall Stephenson MD Performing Location: [facility] Administered by: Shaina Tyler RN on 08/17/25 15:33 Dose Route Admin Location Dispensed Lot Number Expiration Date [facility] Cab Starter 0.25 mL Infiltration 2 mL [id number] 03/25/27 02235-368-18 [employer] Total Dispensed Waste 2 mL 87.5 % Kenalog 40 mg/mL suspension for injection Performing Provider: Marshall Stephenson MD Performing Location: [facility] Administered by: Shaina Tyler RN on 08/17/25 15:33 Dose Route Admin Location Dispensed Lot Number Expiration Date [facility] Cab Starter 10 mg intra-articular 1 mL [id number] 04/24/27 [address]-7 [employer] Total Dispensed Waste 1 mL 75 % Assessment & Plan Assessment & Plan (1) Osteoarthritis of carpometacarpal (CMC) joint of both thumbs: Comment: Pain is uncontrolled in bilateral CMCs. Previously treated with cortisone injection right side November 2021, bilateral July 2023 and January 2024 with benefit. Code(s): M18.0 - Bilateral primary osteoarthritis of first carpometacarpal joints Category: Medical Plan: Patient received bilateral CMC cortisone injections Return to clinic in 3 months (2) Osteoporosis: Comment: Without fragility fracture. She did not tolerate Fosamax due to side effect of bone pain. In the past we discussed Reclast and Prolia treatment. She had a bone density recently but no treatment has been given to patient. Code(s): M81.0 - Age-related osteoporosis without current pathological fracture Category: Medical Plan: Requesting bone density scan report from [facility] reviewed Return to clinic in 3 months Orders: Orders AMB Joint Injection/Aspiration 08/17/25 M18.0 - Bilateral primary osteoarthritis of first carpometacarpal joints AMB Joint Injection/Aspiration 08/17/25 M18.0 - Bilateral primary osteoarthritis of first carpometacarpal joints Medications: New arm brace (Wrist Brace) As directed Bilateral custom cmc splints Dx: osteoarthritis bilateral CMC 2 ea 0RF Coding Level of Care Code Est Pt Level 4 (50925) Diagnoses Osteoarthritis of carpometacarpal (CMC) joint of both thumbs M18.0 Osteoporosis M81.0 CPT Codes Coding - 10799 - Small joint: 18064 - Small Joint ([id number]) Coding - 98908 - Small joint: 75433 - Small Joint ([id number]) Time Spent (min) 30
--- OUTSIDE RECORDS SUMMARY | 2025-08-17 18:19 | XMS_ITS | Clinical Summary ---
[facility] Organization [facility] Address [address] [place] [address] Care Team Providers Care Camera Engineer Name Role Phone Mandie Mckenzie MD Primary Care Provider [phone] Surgical History Surgery Date Site/Laterality Comments BREAST [...] Health Maintenance Due Date Last Done Comments Colorectal Cancer Screening: Colonoscopy 1955 Breast Cancer Screening 03/01/2021 03/01/2019 Cholesterol Screening (Lipid Panel) 09/23/2022 Falls Risk Assessment 09/23/2022 Hepatitis C Screening 09/23/2022 Social Influencers of Health Screening 09/23/2022 Hypertension/CHF/CAD Annual BMP Blood Test 10/05/2022 Depression Screening 10/26/2024 COVID-19 Vaccine ( season) 2025 09/16/2021, 03/15/2021, 02/22/2021 Influenza Vaccine (#1) 2025 2, 08/10/2021, 07/06/2020, [...] should be classified as having osteoporosis. The [facility] Department of Internal Medicine recommends using National [...] Kemp should beclassified as having osteoporosis. The [facility] Department of Internal Medicine recommendsusing National Osteoporosis [...] Recently Relevant to Health Maintenance Care Teams Camera Engineer Relationship Specialty Start Date End Date Mandie Mckenzie MD PCP - General Internal Medicine 11/17/18
--- OUTSIDE RECORDS SUMMARY | 2025-08-17 18:19 | XMS_ITS | Data Portability ---
Author Organization [place] - [facility], Allergy Address [address] [address] Care Team Providers Care Sustainable Landscape Architect Name Role Phone SIM ASHRAF Primary Care Provider [phone] Assessment Encounter Date Assessment Date Assessment LastModified [...] the near future. Not available 08/24/2024 14:23:03 02/08/2025 02/08/2025 1. [...] this today [email or web address] Not available 02/08/2025 13:50:59 07/14/2025 07/14/2025 69-year-old female presents today for evaluation of several symptoms. She does have chronic postnasal drip for which she has been evaluated in the past. Nasal sprays are limited due to glaucoma. I reassured her I do not see any active drip in her posterior pharynx on exam today. There is a small amount of stranding mucus on flexible laryngoscopy, no evidence of any bacterial sinusitis. She was previously seen by Dr. Dennis for a fungal OE. No evidence of infection on exam today. A small amount of squamous debris was removed. she can use Lotrisone as needed. We did perform audiometric testing which shows mild to severe sensorineural hearing loss. She has flat temps, but I do not see any evidence of effusion. She does have narrow ear canals. She also notes cervicalgia. She has tenderness to palpation over the hyoid. I do not palpate any abnormal mass. She does have OA. We discussed symptoms are likely musculoskeletal. Follow-up in 6 months for ear cleaning. [email or web address] Not available 07/19/2025 08:07:02 Plan of Treatment Reminders Order Date Submit Date Provider Last Modified By Organization Details Last Modified Time Details Appointments Establish ed 15 2025 11:15A M MARILYN ABDI PA-C Not available Not available Not available Lab None recorded. Referral None recorded. Procedures None recorded. Surgeries None recorded. Imaging None recorded. Medication Orders clotrimaz ole-betam ethasone 1 %-0.05 % topical cream 2024 025 [facility], [address] [facility], [place], [address], 07/14/2025 14:40:34 Ciprodex 0.3 %-0.1 % ear drops,sylvia pension 2023 024 [email or web address] [address] [facility], [address] [place], [address], 02/08/2025 10:54:46 Patient TargetsNo targets recorded. Patient [...] ation record ed. [email or web address] Not Available 12:11:01 07/14/20 audio gram No observ ation record ed. BARCODE Not Available 2024 15:51:40 Result Notes None recorded. Problems Name Problem SNOMED Code Status Onset Date Resolution Date Notes Provider Name and Address Organization Details Recorded Time Itching of skin 029143965 Active 2019 Pruritus , unspecif ied; Note: Date Diagnose d: 02/02/2020 10:14 AM (L29.9) Not Available [facility] 4 02:48:16 Eustachi an tube disorder 42650395 Active 2019 Other specifie d disorder s of Eustachi an tube, unspecif ied ear; Note: Date Diagnose d: 02/02/2020 10:14 AM (H69.80) Not Available [facility] 4 02:48:19 Otalgia of left ear 9668256100 Active 2019 Otalgia, left ear; Note: Date Diagnose d: 02/02/2020 10:13 AM (H92.02) Not Available [facility] 4 02:48:20 Sensorin eural hearing loss of bilatera l ears 374321229 Active 2019 Sensorin eural hearing loss, bilatera l; Note: Date Diagnose d: 06/27/2020 11:47 AM (H90.3) Not Available [facility] 4 02:48:18 Dysphoni a 97953474 Active 2020 Hoarsene ss; Note: Date Diagnose d: 03/29/2021 11:16 AM (R49.0) Not Available [facility] 4 02:48:21 Impacted cerumen of bilatera l ears 44174121243 17618 Active 2020 Impacted cerumen, bilatera l; Note: Date Diagnose d: 03/29/2021 11:16 AM (H61.23) Not Available [facility] 4 02:48:20 Referred otalgia 39192603 Active 2020 Otalgia secondar y to TMJ; Note: Date Diagnose d: 1 3:14 PM (388.72) Not Available [facility] 4 02:48:23 Diffuse otitis externa 16776412 Completed 202005/27/2024 Diffuse otitis externa, right ear; Note: Date Diagnose d: 1 8:32 AM (H60.311 ) Not Available [facility] 4 02:48:14 Chronic mycotic otitis externa 659162923 Active 2021 Chronic mycotic otitis externa; Note: Date Diagnose d: 1/26/202 2 11:18 AM (380.15) Not Available [facility] 4 02:48:14 Bilatera l diffuse otitis externa 78973934453 64044 Completed 202105/27/2024 Diffuse otitis externa, bilatera l; Note: Date Diagnose d: 2 11:19 AM (H60.313 ) Not Available [facility] 4 02:48:19 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 Other specifie d superfic ial mycoses; Note: Date Diagnose d: 2 11:19 AM (B36.8) Not Available [facility] 4 02:48:14 Xerostom ia 16319378 Active 2021 Dry mouth, unspecif ied; Note: Date Diagnose d: 2 11:57 AM (R68.2) Not Available [facility] 4 02:48:22 Gastroes ophageal reflux disease without esophagi tis 712852090 Active 2021 Gastro-e sophagea l reflux disease without esophagi tis; Note: Date Diagnose d: 2 11:57 AM (K21.9) Not Available [facility] 4 02:48:22 Dysphagi a 68296916 Active 2021 Dysphagi a, unspecif ied; Note: Date Diagnose d: 02/27/2022 1:39 PM (R13.10) Not Available [facility] 4 02:48:18 Otorrhea of bilatera l ears 22175594806 42112 Active 2021 Otorrhea , bilatera l; Note: Date Diagnose d: 05/29/2022 10:56 AM (H92.13) Not Available [facility] 4 02:48:15 Candidal otitis externa 69587515 Active 2021 Candidal otitis externa; Location : right No te: Date Diagnose d: 08/11/20 22 1:12 PM (B37.84) Not Available [facility] 4 02:48:23 Bleeding from nose 588025005 Active 2022 Epistaxi s; Note: Date Diagnose d: 3 11:58 AM (R04.0) Not Available [facility] 4 02:48:21 Posterio r rhinorrh ea 61010304 Active 2022 Postnasa l drip; Note: Date Diagnose d: 3 11:58 AM (R09.82) ESTRELLITA RAMOS MD [address] [place] [address], [facility] [place], [address] , [facility] 5 08:02:57 Otalgia of right ear 7038323288 Active 2022 Otalgia, right ear; Note: Date Diagnose d: 3 11:58 AM (H92.01) Not Available [facility] 4 02:48:17 Impacted cerumen in left ear 86189651028 43883 Active 2022 Impacted cerumen, left ear; Note: Date Diagnose d: 3 1:27 PM (H61.22) Impact ed cerumen, left ear; Note: Date Diagnose d: 08/11/20 22 1:12 PM (H61.22) ; Start Date : 08/11/20 Not Available [facility] 4 02:48:20 Otorrhea of right ear 14097777242 49260 Active 2022 Otorrhea , right ear; Note: Date Diagnose d: 3 4:03 PM (H92.11) Not Available [facility] 4 02:48:19 Dizzines s and giddines s 364844915 Active 2022 Dizzines s and giddines s; Note: Date Diagnose d: 3 2:35 PM (R42) Not Available [facility] 4 02:48:16 Pain of left temporom andibula r joint 67266238299 855279 Active 2023 Arthralg ia of left temporom andibula r joint; Note: Date Diagnose d: 10/30/2023 1:26 PM (M26.622 ) Not Available [facility] 4 02:48:18 Acute serous otitis media of bilatera l ears 34811360085 84594 Active 2023 Acute serous otitis media, bilatera l; Note: Date Diagnose d: 4 1:10 PM (H65.03) Not Available [facility] 4 02:48:15 Cough 27966323 Active 2023 Cough, unspecif ied; Note: Changed from R05 to R05.9 (12/18/19 24 5:00 PM) , Date Diagnose d: 4 1:10 PM (R05) Not Available [facility] 4 02:48:16 Acute maxillar y sinusiti s 21549183 Active 2023 Acute maxillar y sinusiti s, unspecif ied; Note: Date Diagnose d: 4 1:10 PM (J01.00) Not Available [facility] 4 02:48:21 Allergic rhinitis caused by pollen 87676379 Active 2023 Allergic rhinitis due to pollen; Note: Date Diagnose d: 4 3:06 PM (J30.1) Not Available [facility] 4 02:48:22 Mixed conducti ve and sensorin eural hearing loss of right ear 62006708084 105 Active 2023 JENISE KNIGHT, AUD [address] [facility] [address], [place], [address] , [place] - [facility] 4 12:20:06 Sensorin eural hearing loss 60556341 Active 2023 JENISE KNIGHT, AUD [address] [facility] [address], [place], [address] , [place] [facility] 4 12:20:21 Pain of temporom andibula r joint 37497703 Active 2023 MARILYN ABDI PA-C [address] [facility] [address], [place], [address] , [place] [facility] 4 13:13:26 Acute otitis externa 75017160 Active 2023 MARILYN ABDI PA-C [address] [facility],[place] [address], [place], [address] , [facility] - [facility] 4 13:13:31 Bilatera l disorder of Eustachi an tubes 32813839569 49867 Active 2023 MARILYN ABDI PA-C [address] [facility],[place] [address], [place], [address] , [place] - [facility] 4 14:24:03 Nasal congesti on 33340355 Active 2023 MARILYN ABDI PA-C [address] [place] [address],[place] [address], [place], [address] , [place] - [facility] 4 14:24:07 Chronic otitis externa 43253312 Active 2024 CURTIS DENNIS MD [address] [facility],[place] [address], [place], [address] , [place] - [facility] 5 13:51:45 Sensorin eural hearing loss of bilatera l ears 668426670 Active 2024 SANDIP CRANE [address] [facility],[place] [address], [place], [address] , [facility] - [facility] 5 14:52:26 Neck pain 25972712 Active 2024 ESTRELLITA RAMOS MD [address] [facility],[place] [address], [place], [address] , [facility] - [facility] 5 08:03:14 Problem Notes None recorded. Procedures Surgical History Date Name Laterality Status Provider Name and Address Organization Details Recorded Time 07/14/20 25 Air & Speech Audio with Tymps - 86348, 39633 & 20285 completed SANDIP CRANE [address] [facility] [address], [place], [address], [place] - [facility] 07/14/2025 14:52:58 07/14/20 25 Fiberoptic Laryngoscopy (Comprehensive) completed ESTRELLITA RAMOS MD [address] [facility],[place] [address], [place], [address], [facility] 07/14/2025 14:44:26 02/09/20 25 otomicroscopy completed CURTIS DENNIS MD [address] [facility],[place] [address], [place], [address], [facility] 02/08/2025 13:51:17 08/24/20 24 Cerumen removal without microscope bilat completed MARILYN ABDI PA-C [address] [facility],[place] [address], [place], [address], [facility] 08/24/2024 14:22:06 04/11/20 24 Comp Audio with Tymps - 53043 & 03600 completed SANDIP PROCTOR [address] [facility],[address], [address], [facility] 04/11/2024 12:19:43 Imaging Results None recorded. Procedure Notes None recorded. Medical Equipment None Reported. Allergies Allergen ID Allergen Name Allergen Category Reaction Reaction Severity Criticality Documentation Date Start Date Code Code System Note Provider Name and Address Organization Details Recorded Time 09160 meloxicam medicatio n other Not available Not available 03/08/2024 39533 RxNorm React ion: unkno wn, unspe cifie d;; Not Available [facility] 4 00:59:14 32058 estradiol medicatio n other Not available Not available 03/08/2024 4083 RxNorm React ion: unkno wn, unspe cifie d;; Not Available [facility] 4 00:59:15 79130 oxycodone medicatio n other Not available Not available 03/08/2024 7804 RxNorm React ion: unkno wn, unspe cifie d;; Not Available [facility] 4 00:59:16 24983 doxycycli ne Not available other Not available Not available 03/08/2024 3640 RxNorm React ion: unkno wn, unspe cifie d;; Not Available [facility] 4 00:59:17 62891 gabapenti n medicatio n other Not available Not available 03/08/2024 15548 RxNorm React ion: unkno wn, unspe cifie d;; Not Available [facility] 4 00:59:19 98460 Bactrim medicatio n other Not available Not available 03/08/2024 94727 9 RxNorm React ion: unkno wn, unspe cifie d;; Not Available [facility] 4 00:59:20 49849 amoxicill in medicatio n hives Not available Not available 03/08/2024 723 RxNorm React ion: skin rashe s, hives ;; Not Available [facility] 4 00:59:22 86650 azithromy char medicatio n other Not available Not available 03/08/2024 81124 RxNorm React ion: unkno wn, unspe cifie d;; Not Available [facility] 4 00:59:24 97529 Fosamax medicatio n other Not available Not available 03/08/2024 63993 5 RxNorm React ion: unkno wn, unspe cifie d;; Not Available [facility] 4 00:59:27 52056 oxybutyni n chloride Not available other Not available Not available 03/08/2024 25548 RxNorm React ion: unkno wn, unspe cifie d;; Not Available [facility] 4 00:59:30 14476 trazodone medicatio n other Not available Not available 03/08/2024 13876 RxNorm React ion: unkno wn, unspe cifie d;; Not Available [facility] 4 00:59:33 56886 Premarin medicatio n other Not available Not available 03/08/202445940 6 RxNorm React ion: unkno wn, unspe cifie d;; Not Available [facility] 4 00:59:36 50723 penicilli n V potassium medicatio n other Not available Not available 03/08/202401428 5 RxNorm React ion: unkno wn, unspe cifie d;; Not Available [facility] 4 00:59:41 34888 morphine medicatio n other Not available Not available 03/08/2024 7052 RxNorm React ion: unkno wn, unspe cifie d;; Not Available [facility] 4 00:59:45 14548 Actos medicatio n other Not available Not available 03/08/2024 93379 2 RxNorm React ion: unkno wn, unspe cifie d;; Karyn sears [place] - [facility] 4 11:48:39 80941 erythromy char ethylsucc inate medicatio n other Not available Not available 03/08/2024 4056 RxNorm React ion: unkno wn, unspe cifie d;; Not Available [facility] 4 00:59:54 Medications Name Sig Start Date Stop Date Status Note LastModified by Organization Details LastModified Time celecoxib 200 mg capsule TAKE ONE CAPSULE BY MOUTH EVERY DAY active Not Available Not Available No t Available doxycycli ne hyclate 100 mg capsule TAKE ONE CAPSULE BY MOUTH TWICE A DAY FOR 10 DAYS 04/11 completed Not Available Not Available Not Available polyethyl rupesh glycol 3350 17 gram oral powder packet TAKE 17 GRAM 1 PACKET) EVERY DAY BY MOUTH active Not Available Not Available No t Available cetirizin e 10 mg tablet TAKE ONE TABLET BY MOUTH EVERY DAY active Not Available Not Available No t Available metoprolo l succinate ER 50 mg tablet,ex tended release 24 hr active Medicati on ID: [id number] B rand Name: metoprol ol succinat e Send Method: E-Prescr ibed Sub s Allowed: subs OK Medic ationGen ericName : metoprol ol succinat e Not Available Not Available Not Available clotrimaz ole-betam ethasone 1 %-0.05 % lotion Apply a small amount three times a day as directed 04/11 completed Medicati on ID: [id number] D uration Value: 14 Brand Name: clotrima zole-bet amethaso ne Send Method: E-Prescr ibed Sub s Allowed: subs OK Speci al Instruct ion: Apply with finger to ear canal skin. Me dication GenericN pushpa: quincy dodson Medic ation ID: [id number] D uration Value: 14 Brand Name: quincy potts-jake dodson Send Method: E-Prescr ibed Sub s Allowed: subs OK Speci al Instruct ion: Apply with finger to ear canal skin. Me dication GenericN pushpa: quincy potts-jake dodson Not Available Not Available Not Available ondansetr on HCl 4 mg tablet TAKE 1 TABLET EVERY 8 HOURS NEEDED FOR NAUSEA/V OMITING active Not Available Not Available No t Available tramadol 50 mg tablet TAKE ONE TABLET BY MOUTH EVERY 4 TO 6 HOURS NEEDED FOR SEVERE PAIN active Not Available Not Available No t Available acetamino phen ER 650 mg tablet,ex tended release TAKE ONE TABLET BY MOUTH THREE TIMES A DAY active Not Available Not Available No t Available ketorolac 0.5 % eye drops PLACE 1 DROP INTO SURGICAL EYE THREE TIMES A DAY FOR 3 WEEKS FOLLOWIN G SURGERY active Not Available Not Available No t Available calcium 600 mg (as calcium carbonate [...] one acetate 1 % eye drops,sylvia pension PLACE 1 DROP INTO SURGICAL EYE THREE TIMES A DAY FOR 3 WEEKS FOLLOWIN G CATARACT SURGERY SHAKE WELL WAIT ATLEAST 5 MINUTES BETWEEN DROPS active Not Available Not Available No t Available doxycycli ne monohydra te 100 mg capsule TAKE ONE CAPSULE BY MOUTH TWICE A DAY FOR 7 DAYS 04/11 completed Not Available Not Available Not Available pantopraz ole 40 mg tablet,de layed release 11/28 completed Medicati on ID: [id number] B rand Name: pantopra zole Sen d Method: E-Prescr ibed Sub s Allowed: subs OK Medic ationGen ericName : pantopra zole Not Available Not Available Not Available Cipro 500 mg tablet 1 tablet by mouth 04/11 completed Medicati on ID: [id number] D uration Value: 7 Prescri bed By Name: Nancy Cintron TAMAR Scott nd Name: Coco Sunshine nd Method: E-Prescr ibed Sub s Allowed: subs OK Yamini Salazar ericName : Coco Me dication ID: [id number] D uration Value: 7 Prescri bed By Name: Nancy Cintron TAMAR Scott nd Name: Coco Sunshine nd Method: E-Prescr ibed Sub s Allowed: subs OK Yamini Salazar ericName : Coco Not Available Not Available Not Available clotrimaz ole-betam ethasone 1 %-0.05 % topical cream APPLY A SMALL AMOUNT TWO TIMES A DAY TAKE O AFFECTED AREA S) DIRECTED FOR 1 WEEK active Not Available Not Available No t Available olopatadi ne 0.1 % eye drops [...] eye drops 08/11 completed Medicati on ID: [id number] B rand Name: brimonid ine Send Method: E-Prescr ibed Sub s Allowed: subs OK Medic Martin ericName : brimonid ine Not Available Not Available Not Available clotrimaz ole 1 % topical solution Apply 04/11 completed Medicati on ID: [id number] D uration Value: 14 Brand Name: clotrima zole Sen d Method: E-Prescr ibed Sub s Allowed: subs OK Speci al Instruct ion: 4 drops to the right ear BID x 2 weeks Me dication GenericN pushpa: clotrima zole Med ication ID: [id number] D uration Value: 14 Brand Name: clotrima zole Sen d Method: E-Prescr ibed Sub s Allowed: subs OK Speci al Instruct ion: 4 drops to the right ear BID x 2 weeks Me dication GenericN pushpa: clotrima zole Not Available Not Available Not Available betametha sone dipropion ate 0.05 % topical cream 1 a small amount 11/28 completed Medicati on ID: [id number] D uration Value: 14 Prescri bed By Name: TAMAR Knight nd Name: betameth asone dipropio julio Sen d Method: E-Prescr ibed Sub s Allowed: subs OK Speci al Instruct ion: Apply to external ear bid X 14 days Med icationG enericNa me: betameth asone dipropio julio Not Available Not Available Not Available docusate sodium 100 mg capsule TAKE ONE CAPSULE BY MOUTH TWICE A DAY active Not Available Not Available No t Available gabapenti n 300 mg capsule TAKE ONE CAPSULE BY MOUTH THREE TIMES A DAY active Not Available Not Available No t Available omeprazol e 20 mg capsule,d elayed release 11/20 completed Medicati on ID: [id number] D uration Value: 30 Brand Name: omeprazo le Send Method: E-Prescr ibed Sub s Allowed: subs OK Speci al Instruct ion: TK 1 C PO D PRF HEARTBUR N Medica tionGene ricName: omeprazo le Not Available Not Available Not Available dorzolami de 22.3 mg-timolo l 6.8 mg/mL eye drops INSTILL 1 DROP IN EACH EYE TWO TIMES A DAY active Not Available Not Available No t Available hydroxyzi ne HCl 25 mg tablet TAKE ONE TABLET BY MOUTH THREE TIMES A DAY NEEDED FOR ANXIETY active Not Available Not Available No t Available bisacodyl 5 mg tablet,de layed release TAKE TWO TABLETS BY MOUTH EVERY DAY NEEDED FOR CONSTIPA TION active Not Available Not Available No t Available hydrochlo rothiazid e 25 mg tablet 11/20 completed Medicati on ID: [id number] D uration Value: 90 Brand Name: hydrochl [...] mg capsule 08/11 completed Medicati on ID: [id number] B rand Name: donald calloway Send Method: [...] to skin 11/28 completed Medicati on ID: [id number] D uration Value: 14 Prescri bed By Name: TAMAR Knight nd Name: cezarcarlos katlyn [place] Method: E-Prescr ibed Sub s Allowed: subs OK Speci al Instruct ion: to external ears Med icationG enericNa me: clotrima zole Not Available Not Available Not Available loratadin e 10 mg tablet TAKE ONE TO TWO TABLETS BY MOUTH EVERY MORNING active Not Available Not Available No t Available naproxen 500 mg tablet 11/20 completed Medicati on ID: [id number] D uration Value: 90 Brand Name: naproxen Send Method: E-Prescr ibed Sub s Allowed: subs OK Speci al Instruct ion: TK 1 T PO BID Medi cationGe nericNam e: naproxen Not Available Not Available Not Available oxycodone 5 mg tablet TAKE 1-2 TABLETS EVERY 6 HOURS NEEDED FOR MODERATE TO SEVERE PAIN active Not Available Not Available No t Available TobraDex 0.3 %-0.1 % eye drops,sylvia pension 08/09 completed Medicati on ID: [id number] D uration Value: 14 Prescri bed By Name: Estrellita galvez MD Brand Name: TobraDex Send Method: E-Prescr ibed Sub s Allowed: subs OK Speci al Instruct ion: Instill 4 drops in the right ear BID for 14 days Med Mary Aguilar me: TobraDex Not Available Not Available Not Available cyclobenz [...] 2 drop 04/11 completed Medicati on ID: [id number] D uration Value: 30 Brand Name: DermOtic Oil Send Method: E-Prescr ibed Sub s Allowed: subs OK Speci al Instruct ion: as needed for itching Medicati onGeneri cName: DermOtic Oil Medi cation ID: [id number] D uration Value: 30 Brand Name: DermOtic [...] t Available Lumigan 0.01 % eye drops INSTILL 2 DROPS INTO BOTH EYES AT BEDTIME active Not Available Not Available No t Available Eliquis 5 mg tablet TAKE ONE TABLET BY MOUTH TWICE A DAY active Not Available Not Available No t Available Eliquis 2.5 mg tablet TAKE 1 TABLET BY MOUTH TWO TIMES A DAY FOR THE FIRST 4 DAYS POST OPERATIV FABIO, THEN RESUME HOME DOSE active Not Available Not Available No t Available Adults 50 Plus 0.4 mg-300 mcg-250 mcg tablet 08/11 completed Medicati on ID: [id number] D uration Value: 90 Brand Name: Adults 50 Plus Sen d Method: E-Prescr ibed Sub s Allowed: subs OK Speci al Instruct ion: TK 1 T PO D Medica tionGene ricName: Adults 50 Plus Not Available Not Available Not Available Linzess 72 mcg capsule TAKE ONE CAPSULE BY MOUTH EVERY DAY. DO NOT CRUSH OR CHEW active Not Available Not Available No t Available Reguloid (psyllium husk) 0.4 gram capsule TAKE 5 CAPSULES BY MOUTH TWO TIMES A DAY WITH AT LEAST 8 OUNCES OF WATER active Not Available Not Available No t Available Daily-Vit e (with folic acid) 400 mcg tablet 08/11 completed Medicati on ID: [id number] B rand Name: Daily-Vi te (with folic acid) Se nd Method: E-Prescr ibed Sub s Allowed: subs OK Medic ationGen ericName : Daily-Vi te (with folic acid) Not Available Not Available Not Available Astepro Allergy 205.5 mcg (0.15 %) nasal spray [place] 1 spray into both nostrils twice a day 01/10 completed Medicati on ID: [id number] P keshawn d By Name: Geoff Jones nd Name: Astepro Allergy Send Method: E-Prescr ibed Sub s Allowed: subs OK Medic ationGen ericName : Astepro Allergy Not Available Not Available Not Available Vitals Date Recorded Body height Body weight Provider Name and Address Organization Details Last Updated DateTime 02/08/2025 151.13 cm 39376.93 g Michelle Zamarripa [place] - [facility] 02/08/2025 10:54:15 Date Recorded Body height Body mass index (BMI) Body weight Provider Name and Address Organization Details Last Updated DateTime 04/11/2024 151.13 cm 27.8 kg/m2 34278.93 g Karyn Antonio MA - [facility] 04/11/2024 11:48:18 Date Recorded Body height Body mass index (BMI) Body weight Provider Name and Address Organization Details Last Updated DateTime 07/14/2025 151.13 cm 26.4 kg/m2 42516.79 g Karyn Antonio [place] - [facility] 07/14/2025 14:25:53 Date Recorded Body height Body mass index (BMI) Body weight Provider Name and Address Organization Details Last Updated DateTime 08/24/2024 151.13 cm 27.8 kg/m2 53866.93 g Whitney Israel [place] - [facility] 08/24/2024 13:39:27 Social History None recorded. Functional Status None recorded. Mental Status None recorded. Family History Nothing Reported. Medical History No medical history recorded. Gynecological HistoryNo gynecological history recorded. Obstetrics History GPAL:G 0 P 0 0 0 0 Past Encounters Encounter ID Performer Location Encounter Start Date Encounter Closed Date Diagnosis/Indication Diagnosis SNOMED-CT Code Diagnosis ICD10 Code Diagnosis IMO Codes Diagnosis Note [id number] MARILYN ABDI PA-C [facility] [address] [address] 04/11/2024 11:30:47 04/11/2024 12:33:15 Otalgia of right ear 2847970507 H92.01 Pain of temporomandibular joint 49327118 M26.629 Acute otitis externa 302 37390 H60.509 [id number] SANDIP PROCTOR [facility] [address] [address] 04/11/2024 12:19:13 04/12/2024 12:46:23 Mixed conductive and sensorineural hearing loss of right ear 5109628356 9105 H90.A31 Sensorineu ral hearing loss 19412270 H90.A22 Audiologic al evaluation results: Right ear: Mild sloping to severe mixed hearing loss with excellent word recognitio n. Left ear: Mild sloping to severe sensorineu ral hearing loss with excellent word recognitio n. Tympanomet ry: Right Ear:[place] [id number] MARILYN ABDI PA-C [facility] [address] [place] [address] 08/24/2024 13:15:02 08/24/2024 14:13:43 Bilateral disorder of Eustachian tubes 2052330118 901832 H69.93 Nasal congestion 7984887 0 R09.81 [id number] CURTIS DENNIS MD [facility] [address] [address] 02/08/2025 10:50:02 02/08/2025 11:22:53 Chronic otitis externa 31837909 H60.61 [id number] ESTRELLITA RAMOS MD [facility] [address] [address] 07/14/2025 13:20:54 07/14/2025 15:26:20 Chronic mycotic otitis externa 617163554 B36.9 Posterior rhinorrhea 758 61181 R09.82 852296 Neck pain 66440907 M54.2 00595 Sensorineu ral hearing loss of bilateral ears 540052261 H90.3 49116443 Right ear:Mild sloping to severe sensorineu ral hearing loss with excellent word recognitio n.Left ear:Mild sloping to severe sensorineu ral hearing loss with excellent word recognitio n.Tympanom etry:Right Ear: Type BLeft Ear: Type B [id number] SANDIP CRANE [facility] [address] [address] 07/14/2025 14:51:54 07/17/2025 21:10:11 Sensorineural hearing loss of bilateral ears 302151020 H90.3 65951209 Right ear:Mild sloping to severe sensorineu ral hearing loss with excellent word recognitio n.Left ear:Mild sloping to severe sensorineu ral hearing loss with excellent word recognitio n.Tympanom etry:Right Ear: Type BLeft Ear: Type B Health Concerns Section Related Observation LastModified by Organization Detai ls LastModified Time None Recorded Concern Status LastModified by Organization Details LastModified Time None Recorded Advance Directives Directive None Recorded Payers Insurance Date Sequence Insurance Name Policy Number Policy Ahuja Covered Member ID Ahuja Member ID Guarantor Name 07/11/2025 1 [place]: [employer] Sarah Kemp [id number] Sarah Kemp 07/11/2025 2 [place] [facility] aSrah Kemp [id number] Sarah Kemp Notes Date Note Type Note [...] side is unaffected. AMBROCIO ARITA MD [address] [facility],[address], [phone], [facility] 04/11/2024 16:59:59 08/24/2024 text/html ROS as noted in the HPI 68-year-old female presents for cerumen. Has been having more postnasal drip and nasal congestion which she feels is affecting her ears causing ear fullness. Cannot use Flonase due to glaucoma. DMITRY WILBURN MD [address] [place] [address],[address], [phone], [facility] 08/25/2024 08:54:43 02/08/2025 text/html ROS as noted in the HPI 69yo female here for otologic evaluation.She deferred audiogram today - says she does not want to address this at this time.Prior history of fungal infection in the right ear.Wants it rechecked today: She denies any change in hearing, otorrhea, dizziness, vertigo, otalgia, otologic surgeries. CURTIS DENNIS MD [address] [facility],[address], [phone], [facility] 02/08/2025 13:51:50 07/14/2025 text/html ROS as noted in the HPI 69 yo F presents for several symptomspain in the necksevere sinus problemsdrainage into the throatbad taste in the mouthpain over right and left OA in the neck PV:69yo female here for otologic evaluation.She deferred audiogram today - says she does not want to address this at this time.Prior history of fungal infection in the right ear.Wants it rechecked today: She denies any change in hearing, otorrhea, dizziness, vertigo, otalgia, otologic surgeries. ESTRELLITA RAMOS MD [address] [place] [address], [phone], [facility] - [facility] 07/19/2025 08:07:23 OBGyn Episode No OBEpisode recorded.
== END 2025-08-17 15:16 | disposition home or self-care (01) ==
LOC: HO.RHES 14:27
PROVIDERS: PCP Internal Medicine; Visit Provider Internal Medicine Rheumatology
DX: M18.0 Bilateral primary osteoarthritis of first carpometacarpal joints (principal)
CPT/HCPCS: 20600; 99214

== ENCOUNTER → 2025-08-17 14:27 | Outpatient (BNVA) | payer MEDICARE, MEDICAID, SELFPAY | PROVIDERS: Visit Provider Internal Medicine Rheumatology | DX: M18.0 Bilateral primary osteoarthritis of first carpometacarpal joints (principal) | CPT/HCPCS: 20600; 99212; J2003; J3301 ==